=== PATIENT | male | born 1945 | race Caucasian/White ===

== ENCOUNTER → 2016-05-10 | Outpatient (CLI) | payer OTHER, MEDICARE ==
[~2016-05-10] MED LIST: CHOL1000 PO; CLR10 PO; CYAN100020 PO; FLUT0.15; GLC/500 PO; IBUP600T44 PO; MULT-506 PO; PANT40TA PO; PARO1TAB27 PO; PRVHFAIN INH; SPRIN/30 INH; SYMIN160 INH
[2016-05-10 11:34] LABS: ESTIMATED AVERAGE GLUCOSE 134 mg/dl; HA1C FLAG Normal (Normal)
[2016-05-10 11:44] LABS: % FREE PSA 10.1 %; FREE PSA 0.53 ng/ml; PROSTATE SPECIFIC ANTIGEN 5.23 ng/ml (0.000-4.000)
== END | disposition home or self-care (01) ==
LOC: C.LAB1850 10:16
PROVIDERS: ATTEND Urology
DX: R73.09 Other abnormal glucose (principal); N40.0 Benign prostatic hyperplasia without lower urinary tract symptoms

== ENCOUNTER → 2016-08-03 | Outpatient (CLI) | payer OTHER, MEDICARE ==
[~2016-08-03] MED LIST changes: +CIPR-255 PO; +CLC100 PO; +DTR5 PO; +OXYC7.5T62 PO
[2016-08-03 10:08] LABS: % FREE PSA 8.7 %; FREE PSA 0.5 ng/ml; PROSTATE SPECIFIC ANTIGEN 5.81 ng/ml (0.000-4.000)
--- NOTE | 2016-08-09 12:42 | CODING QUERY MEDICAL NECESSITY ---
SUPPORTING DIAGNOSIS NEEDED A supporting diagnosis is required for the test/procedure performed on this patient in order for us to be reimbursed by the patient's insurance. Please provide a supporting diagnosis for the following test/procedure listed below next to the test name along with your signature. *If there is no additional diagnosis for this patient that would support the following test/procedure please document that below next to the test/procedure. Test(s)/Procedure(s) that require a supporting diagnosis: DOS 08/03 * PSA DIAGNOSIS: Provider Signature: Date: Thank you Snow Me[facility] Information Management Once completed, please kindly fax back to [phone] For questions please call [phone]
== END | disposition home or self-care (01) ==
LOC: C.LAB1850 08:28
PROVIDERS: ATTEND Urology
DX: N50.811 Right testicular pain (principal); R97.20 Elevated prostate specific antigen [PSA]

== ENCOUNTER → 2016-10-27 | Outpatient (CLI) | payer OTHER, MEDICARE | END | disposition home or self-care (01) | LOC: C.PATHSPEC 17:41 | PROVIDERS: ATTEND Urology | DX: R97.20 Elevated prostate specific antigen [PSA] (principal) ==

== ENCOUNTER → 2016-11-15 | Outpatient (CLI) | payer OTHER, MEDICARE ==
--- NOTE | 2016-11-15 13:36 | DIAGNOSTIC IMAGING REPORT ---
BONE SCAN WHOLE BODY CLINICAL HISTORY: PROSTATE CA COMPARISON STUDY: There are no relevant images available for correlative purposes FINDINGS: The patient was injected with 25.5 mCi of technetium 99m MDP. Three-hour delayed whole body images were acquired. There is a focus of increased activity visualized posteriorly on the left at the L5-S1 level. This likely is degenerative. Skeletal activity is otherwise normal. IMPRESSION: Focus of increased activity at the L5-S1 level to the left of midline posteriorly. On a statistical basis this is degenerative. Otherwise unremarkable examination. Electronically signed by: Ivan Lindo M.D. 11/15/2016 1:35 PM Dictated Date/Time: 11/15/2016 1:33 PM
== END | disposition home or self-care (01) ==
LOC: C.NUCL 09:03
PROVIDERS: ATTEND Urology
DX: C61 Malignant neoplasm of prostate (principal)

== ENCOUNTER → 2016-12-30 | Outpatient (CLI) | payer OTHER, MEDICARE ==
[~2016-12-30] MED LIST changes: -PANT40TA PO
[2016-12-30 17:38] LABS: BASO % 0.3 %; BASO ABS # 0.02 K/uL (0-0.2); COMPLETE YES; HEMATOCRIT 44.7 % (42-52); IG% 0.2 %; LYMPH % 26.9 %; LYMPH ABS # 1.55 K/uL (1.2-3.4); MEAN CELL VOLUME 94.1 fL (80-100); MEAN CORPUSCULAR HEMOGLOBIN 32.2 pg (25-34); MEAN CORPUSCULAR HGB CONC 34.2 g/dl (32-36); MEAN PLATELET VOLUME 10.3 fL (7.4-10.4); MONO % 7.3 %; NEUT % 64.3 %; PLATELET COUNT 241 K/uL (130-400); RED BLOOD COUNT 4.75 M/uL (4.7-6.1); WHITE BLOOD COUNT 5.77 K/uL (4.8-10.8)
[2016-12-30 17:45] LABS: INR 0.9 (0.9-1.1); PARTIAL THROMBOPLASTIN RATIO 1.1; PROTHROMBIN TIME (PATIENT) 10.1 SECONDS (9.0-12.0)
[2016-12-30 17:55] LABS: ALT/SGPT 33 U/L (12-78); AST/SGOT 35 U/L (15-37); BLOOD UREA NITROGEN 10 mg/dl (7-18); BUN/CREATININE RATIO 11.2 (10-20); CALCIUM 9.5 mg/dl (8.5-10.1); CARBON DIOXIDE 28 mmol/L (21-32); CHLORIDE 106 mmol/L (98-107); CHOLESTEROL 217 mg/dl (0-200); CREATININE 0.89 mg/dl (0.60-1.40); GLUCOSE 96 mg/dl (70-99); POTASSIUM 4.3 mmol/L (3.5-5.1); SODIUM 141 mmol/L (136-145); TRIGLYCERIDES 137 mg/dl (0-150); VERY LOW DENSITY LIPOPROT CALC 27 mg/dl
[2016-12-30 18:01] LABS: ALKALINE PHOSPHATASE 87 U/L (45-117); CHOLESTEROL/HDL RATIO 4.6; HDL CHOLESTEROL 47 mg/dl; LDL CHOLESTEROL CALCULATED 143 mg/dl
[2016-12-31 06:28] LABS: ESTIMATED AVERAGE GLUCOSE 128 mg/dl; HA1C FLAG Normal (Normal)
== END | disposition home or self-care (01) ==
LOC: C.LABBFT 12:26
PROVIDERS: ATTEND Physician Assistant Medical
DX: Z01.818 Encounter for other preprocedural examination (principal); E11.9 Type 2 diabetes mellitus without complications; E78.5 Hyperlipidemia, unspecified

== ENCOUNTER 2017-01-20 06:24 | Inpatient (IN) | payer OTHER, MEDICARE ==
[2017-01-05 13:03] VITALS: BMI 24.0
--- NOTE | 2017-01-05 13:57 | PAT Medication Instructions ---
Service Date Jan 05, 2017. Current Home Medication List Albuterol (Ventolin Hfa), 2 PUFFS INH QID PRN for Shortness of Breath Budesonide/Formoterol Fumarate (Symbicort 160/4.5 Inhaler ), 2 PUFFS INH BID Cholecalciferol (Vitamin D3), 1 TAB PO QAM Cyanocobalamin (Vitamin B12), 1 TAB PO QAM Fluticasone Propionate (Nasal) (Flonase Allergy Relief), 1 DOSE NA DIRECTED PRN for dryness Ibuprofen (Motrin), 600 MG PO TID PRN for Pain Loratadine (Claritin), 10 MG PO QAM Metformin Hcl (Glucophage), 500 MG PO BID Multivitamin (Multivitamin), 1 TAB PO QPM Paroxetine (Paxil), 20 MG PO QAM Tiotropium Portal (Spiriva Handihaler), 1 CAP INH DAILY Medication Instructions For Your Scheduled Surgery - Hold the following per surgeon's instructions: Ibuprofen (Motrin), 600 MG PO TID PRN for Pain - Hold the following medications 48 hours prior to surgery: Metformin Hcl (Glucophage), 500 MG PO BID - Hold the following medications the morning of surgery: Cholecalciferol (Vitamin D3), 1 TAB PO QAM Cyanocobalamin (Vitamin B12), 1 TAB PO QAM Loratadine (Claritin), 10 MG PO QAM - Take the following medications the morning of surgery with a sip of water: Paroxetine (Paxil), 20 MG PO QAM Tiotropium Portal (Spiriva Handihaler), 1 CAP INH DAILY Fluticasone Propionate (Nasal) (Flonase Allergy Relief), 1 DOSE NA DIRECTED PRN for dryness (if needed) Albuterol (Ventolin Hfa), 2 PUFFS INH QID PRN for Shortness of Breath (if needed , AND BRING WITH YOU THE MORNING OF THE SURGERY) Budesonide/Formoterol Fumarate (Symbicort 160/4.5 Inhaler ), 2 PUFFS INH BID - Take the following medications as scheduled the night before surgery: Multivitamin (Multivitamin), 1 TAB PO QPM Budesonide/Formoterol Fumarate (Symbicort 160/4.5 Inhaler ), 2 PUFFS INH BID Albuterol (Ventolin Hfa), 2 PUFFS INH QID PRN for Shortness of Breath (if needed ) If you have any questions please call us at [phone] or [phone] or [phone]
--- NOTE | 2017-01-05 14:40 | DIAGNOSTIC IMAGING REPORT ---
CHEST PREADMISSION(PA/LAT) CLINICAL HISTORY: PAT preoperative evaluation COMPARISON STUDY: 08/28/2015 FINDINGS: Lungs are clear. Vague micronodular peripheral aspect left midlung unchanged in the prior exam. No acute infiltrate. Diaphragms smooth. IMPRESSION: Chronic change. No acute process. The above report was generated using voice recognition software. It may contain grammatical, syntax or spelling errors. Electronically signed by: Manjeet Gray M.D. 01/05/2017 2:39 PM Dictated Date/Time: 01/05/2017 2:38 PM
[2017-01-06 15:08] LABS: URINE APPEARANCE CLEAR (CLEAR); URINE BILIRUBIN NEG (NEG); URINE COLOR YELLOW; URINE NITRITE NEG (NEG); URINE PH 6.5 (4.5-7.5); URINE SPECIFIC GRAVITY 1.012 (1.000-1.030); UROBILINOGEN NEG (NEG)
[2017-01-06 15:13] LABS: MANUAL MICROSCOPIC REQUIRED? NO; REVIEW REQ? NO
[~2017-01-20] VITALS: Ht 175.3 cm; Wt 73.5 kg
[2017-01-20] VITALS (8 sets, daily range): BP systolic 118–154; BP diastolic 66–93; PULSE 74–91; TEMP 36.5–37; O2SAT 91–97; Ht 175.3 cm; Wt 73.5 kg
[~2017-01-20 06:24] MED LIST changes: +CEFAZOLIN 2000 MG/60 ML D5W IV SCH; -CIPR-255 PO; -CLC100 PO; -DTR5 PO; +HEPARIN SOD 5000 UNIT/0.5 ML CARP SQ SCH; +LACTATED RINGER'S 1000ML 1,000 ML IV SCH; -OXYC7.5T62 PO
--- NOTE | 2017-01-20 07:51 | History & Physical Bridge Note ---
H&P Re-Evaluation Bridge Note: I have examined the patient, reviewed the History & Physical and in the interval since the performance of the History & Physical I have noted the following changes of clinical significance: No changes noted
[2017-01-20] MEDS ORDERED: HYDROmorphone INJ 2 MG/ML SYR/VIAL ONE (07:57)
[2017-01-20] MEDS ORDERED: FENTANYL CITRATE INJ 50 MCG/1 ML 2 ML VIAL ONE (07:57)
[2017-01-20] MEDS ORDERED: MIDAZOLAM HCL 1 MG/ML 2ML VIAL ONE (07:57)
[2017-01-20] MEDS ORDERED: KETAMINE HCL INJ 50 MG/ML 10 ML VIAL ONE (07:58)
[2017-01-20] MEDS ORDERED: METHYLENE BLUE 0.5% 10 ML VIAL ONE (08:13)
[2017-01-20] MEDS ORDERED: BUPIVACAINE 0.5 % 5 MG/1 ML MPF 30ML VIAL ONE (08:13)
[2017-01-20] MEDS ORDERED: FENTANYL CITRATE INJ 50 MCG/1 ML 2 ML VIAL IV PRN (08:15)
[2017-01-20] MEDS ORDERED: ATROPINE SULFATE 0.1 MG/ML 5ML SYR IV PRN (08:15)
[2017-01-20] MEDS ORDERED: ONDANSETRON INJ 2 MG/ML 2 ML VIAL IV PRN ×2 (08:15→12:00)
[2017-01-20] MEDS ORDERED: MoRPHine SULFATE 10 MG/ML CARP/VIAL IV PRN (08:15)
[2017-01-20] MEDS ORDERED: EpHEDrine SULFATE INJ 50 MG/ML AMP IV PRN (08:15)
[2017-01-20] MEDS ORDERED: DEXAMETHASONE SOD INJ 4 MG/ML VIAL ONE (09:12)
[2017-01-20] MEDS ORDERED: PROPOFOL IV EMULSION 10 MG/ML 20 ML VIAL IV ONE (09:12)
[2017-01-20] MEDS ORDERED: CISATRACURIUM BESYLATE IV SOLN 2 MG/ML 10 ML VIAL ONE (09:12)
[2017-01-20] MEDS ORDERED: ONDANSETRON INJ 2 MG/ML 2 ML VIAL ONE (09:12)
[2017-01-20] MEDS ORDERED: EpHEDrine SULFATE 50MG/5ML SYR ONE (09:12)
[2017-01-20] MEDS ORDERED: LIDOCAINE HCL 2% 2 ML VIAL (20MG/ML) ONE (09:12)
[2017-01-20] MEDS ORDERED: GLYCOPYRROLATE INJ 0.2 MG/ML VIAL ONE (10:21)
[2017-01-20] MEDS ORDERED: NEOSTIGMINE METHYLSULFATE 5 MG/5 ML SYR ONE (10:21)
[2017-01-20] MEDS ORDERED: KETOROLAC TROMETHAMINE 30 MG/ML VIAL ONE (11:28)
[2017-01-20] MEDS ORDERED: OXYBUTYNIN CHLORIDE 5 MG TAB PO PRN (12:00)
[2017-01-20] MEDS ORDERED: FLUTICASONE PROPIONATE NA SPR 16 GM BTL NAE PRN (12:00)
[2017-01-20] MEDS ORDERED: HYDROmorphone INJ 1 MG/ML SYR IV PRN (12:00)
[2017-01-20] MEDS ORDERED: OXYCODONE/ACETAMINOPHEN 7.5-325 TAB PO PRN (12:00)
[2017-01-20] MEDS ORDERED: KETOROLAC TROMETHAMINE 15 MG/ML VIAL IV PRN (12:00)
[2017-01-20] MEDS ORDERED: ALBUTEROL HFA 8 GM INHALER INH PRN (12:00)
[2017-01-20] MEDS ORDERED: PHARMACY GLYCEMIC MGMT CONSULT PRN (12:04)
--- NOTE | 2017-01-20 12:07 | [facility] Post Operative Brief Note ---
Immediate Operative Summary Operative Date Jan 20, 2017. Pre-Operative Diagnosis cT1c [place] 3+4 Prostate cancer, pre-treatment PSA of 5.8 Post-Operative Diagnosis Same Procedure(s) Performed Robot-Assisted Laparoscopic Radical Retropubic Prostatectomy, Bilateral pelvic lymph node dissection, Suprapubic Tube insertion Bobby Surgeon Dr. Twan Luque Dairy Bar Manager Surgeon(s) TAMANNA Thayer Estimated Blood Loss 100 mL Findings Watertight anastomosis, right nerve sparing dissection, left partial nerve sparing, SPT and fay in place Specimens Permanent specimens A: Periprostatic fat B: Prostate and seminal vesicles C: Right pelvic lymph nodes D: Left pelvic lymph nodes Drains 16 fr Rutner SPT, 18 fr silicone fay, #10 BIBI drain Anesthesia GAET + local Complication(s) None Disposition Recovery Room / PACU
[2017-01-20 12:21] LABS: HEMATOCRIT 45.8 % (42-52); MEAN CELL VOLUME 93.3 fL (80-100); MEAN CORPUSCULAR HEMOGLOBIN 31.8 pg (25-34); PLATELET COUNT 245 K/uL (130-400); RED BLOOD COUNT 4.91 M/uL (4.7-6.1)
[2017-01-20 12:24] LABS: MEAN CORPUSCULAR HGB CONC 34.1 g/dl (32-36)
[2017-01-20 12:51] LABS: BUN/CREATININE RATIO 8.2 (10-20); CREATININE 1.3 mg/dl (0.60-1.40); POTASSIUM 4.1 mmol/L (3.5-5.1)
--- NOTE | 2017-01-20 13:16 | Pharmacy Progress Note ---
Glycemic Control Intl Consult Date of Service Jan 20, 2017. Scope Glycemic Pharmacist consulted by TAMANNA Thayer on 01/20/17 for glycemic control and to write orders per [facility] inpatient glycemic control protocol Objective Weight (Kilograms): 73.50 Accuchecks BSG (last 24hrs): Test 01/20/17 07:03 01/20/17 12:11 01/20/17 12:47 Bedside Glucose 111 mg/dl (70-99) 177 mg/dl (70-99) Random Glucose 198 mg/dl (70-99) Laboratory Data (last 24hrs) Test 01/20/17 12:11 Anion Gap 4.0 mmol/L BUN/Creatinine Ratio 8.2 Blood Urea Nitrogen 11 mg/dl Creatinine 1.30 mg/dl Potassium Level 4.1 mmol/L Sodium Level 139 mmol/L White Blood Count 9.30 K/uL Recent Pertinent Medications Outpatient Anti-diabetic Regimen: * Metformin 500mg PO BID * A1c = 6.1 % 12/30/16 Risk Factors for Insulin Resistance: * Steroids: Dexamethasone 8mg IV x1 * IVF: Ancef pre and post op mixed in dextrose * Recent Surgery: S/p prostatectomy * Diet: Clear liquid Assessment & Plan ASSESSMENT: * 71 year old male type 2 diabetic with good control as outpatient on orals. S/ p prostatectomy. * Pt BSG was good upon admission, but has already increased to 198mg/dl due to IV steroids. * Pt is maintained on oral antidiabetic agents as an outpatient * Oral agents are not recommended for inpatient use d/t drug interactions, changing PO intake, and difficulty titrating for acute hyper/hypoglycemia. ADA recommends re-initiating outpatient oral agents 1-2 days prior to discharge if/ when appropriate if they were held on admission. * Will hold oral agents for admission and utilize SQ basal bolus insulin regimen which is the recommended regimen for inpatient glycemic control. * Will initiate weight based insulin dosing for insulin binh patient and titrate based on BSG trends. * Will start with one time Lantus dose based on pt's weight and stress of 3 for steroid induced hyperglycemia. * ADA & AACE recommend a goal blood sugar range 140-180 mg/dl for the majority of critically ill & non-critically ill patients. However, more stringent targets may be selected in individual cases. Will utilize more stringent goal of 110-140mg/dl based on patient age & comorbidities. Additionally, tighter glycemic control is warranted to facilitate wound/infection healing. PLAN FOR INPATIENT GLYCEMIC CONTROL: * Holding outpatient oral diabetes medications * Basal insulin with LANTUS 36 units SQ x 1 dose now * May give an additional reduced dose tomorrow morning based on BSG * Correctional Insulin with NOVOLOG per scale ACHS or Q6hrs while NPO and overnight at 0200 * Goal Range: Low 110 mg/dL - High 140 mg/dL * Correction Factor: 20 mg/dL/unit * Nutritional / Prandial insulin per carb ratio of 1 unit per 7 grams CHO consumed * Please note that the plan above was derived based on current level of insulin resistance and hospital stress. These recommendations are appropriate for inpatient admission only. Plan of care upon discharge will need to be reassessed to avoid potential outpatient hypo/hyperglycemia. Thank you.
--- NOTE | 2017-01-20 13:35 | Anesthesiology Progress Note ---
Anesthesia Post Op Note Date & Time Jan 20, 2017 at 13:34 Vital Signs Pain Intensity: 3 Vital Signs Past 12 Hours Date Time Temp Pulse Resp B/P (MAP) Pulse Ox O2 Delivery O2 Flow Rate FiO2 01/20/17 13:00 89 14 158/79 95 Nasal Cannula 4 01/20/17 12:45 36.3 87 16 157/74 96 Nasal Cannula 4 01/20/17 12:35 87 16 156/78 96 Nasal Cannula 2 01/20/17 12:25 81 16 163/84 96 Nasal Cannula 2 01/20/17 12:15 81 16 165/74 97 Oxymask 10 01/20/17 12:05 81 16 145/82 97 Oxymask 10 01/20/17 11:55 85 16 129/67 98 Oxymask 10 01/20/17 11:47 36.5 85 16 170/89 98 Oxymask 10 01/20/17 07:14 36.5 74 18 154/93 95 Room Air Notes Mental Status: alert / awake / arousable, participated in evaluation Pt Amnestic to Procedure: Yes Nausea / Vomiting: adequately controlled Pain: adequately controlled Airway Patency, RR, SpO2: stable & adequate BP & HR: stable & adequate Hydration State: stable & adequate Anesthetic Complications: no major complications apparent
[2017-01-20] MEDS ORDERED: GLUCAGON FOR INJ 1 MG VIAL SQ PRN (13:45)
[2017-01-20] MEDS ORDERED: GLUCOSE 10 TABS/TUBE PO PRN (13:45)
[2017-01-20] MEDS ORDERED: GLUCOSE 40% GEL 15 GM TUBE PO PRN (13:45)
[2017-01-20] MEDS ORDERED: DEXTROSE 50% 50 ML SYR IV PRN (13:45)
[2017-01-20] MEDS: LACTATED RINGER'S 1000ML 1,000 ML IV SCH ×2 (13:55→21:01)
[2017-01-20] MEDS ORDERED: LANTUS PER UNIT CHARGE SQ SCH (14:00)
[2017-01-20] MEDS: INSULIN ASPART 100 UNITS/ML 3 ML PEN SC SCH ×3 (14:33→21:00)
[2017-01-20] MEDS: CEFAZOLIN IV 2,000 MG in DEXTROSE 5% 50ML 50 ML IV SCH (16:31)
[2017-01-20] MEDS: ACETAMINOPHEN 500 MG TAB PO SCH ×2 (16:31→22:14)
--- NOTE | 2017-01-20 17:47 | [facility] Operative Report ---
Operative Report Operative Date Jan 20, 2017. Pre-Operative Diagnosis cT1c [place] 3+4 Prostate cancer, pre-treatment PSA of 5.8 Post-Operative Diagnosis Same Procedure(s) Performed Robot-Assisted Laparoscopic Radical Retropubic Prostatectomy, Bilateral pelvic lymph node dissection, Suprapubic Tube insertion Bobby Surgeon Dr. Twan Luque Supervisor Dog License Officer Surgeon(s) TAMANNA Thayer Estimated Blood Loss 100 mL Findings Watertight anastomosis, accessory cavernosal artery spared, R full nerve sparing , left partial nerve sparing dissection carried out, SPT in good location Specimens Permanent specimens A: Periprostatic fat B: Prostate and seminal vesicles C: Right pelvic lymph nodes D: Left pelvic lymph nodes Drains 16 fr Rutner SPT, 18 fr silicone fay, #10 BIBI drain Anesthesia GAET + local Complication(s) None Disposition Recovery Room / PACU Indications Patient is a pleasant 71-year-old male who is been found to have [place] 3+4 prostate cancer, mostly on the left-hand side after prostate biopsy for an elevated PSA. Staging is negative for metastatic disease. Please see H& P for further details. Intravenous Ancef was provided for antibiotic coverage and SCDs used for DVT prophylaxis as well as subcutaneous heparin. He is being brought to the operating room for surgical management of his disease. Description of Procedure Patient was properly identified and brought into the operative suite after identification of appropriate consent of the chart. General anesthesia with endotracheal intubation was initiated and patient was prepped and draped in the standard fashion for this procedure. Full timeout procedure was followed. All port sites were anesthetized with local prior to excision. A 12 mm supraumbilical incision was made and the abdomen was directly entered using a visual obturator and a 0 laparoscope. Abdomen was insufflated to 15 mmHg and surveyed. No evidence of any bowel or vascular injury was noted on initial evaluation after trocar placement. No significant intra-abdominal variations in anatomy were appreciated. Ports were placed for a fourth arm robotic template including 2 left-sided 7 mm robotic ports, 2 right-sided human resources benefits assistant ports, 5 and 12 mm in size and a right-sided 7 mm robotic port. Robot was brought in and docked after placing the patient in Trendelenburg. A 0 lens was used to drop the bladder down to the level of the pubic bone. An accessory cavernosal artery was noted on the right-hand side and able to be dissected free and preserved until the end of the case. Periprostatic fat was removed and sent for pathologic analysis. Endopelvic fascia was sharply entered on both sides the dorsal vein was skeletonized. This was controlled using an 0 Vicryl suture in a [id number] fashion without entrapping the accessory cavernosal artery. Nerve sparing dissection was initiated on the right-hand side. A 30 down lens was used to address the bladder neck which was placed on tension using the fourth arm. This was skeletonized down to the level of the Fay catheter and then divided. Fay catheter was used to provide anterior traction and the posterior bladder neck was divided and dropped in the midline. Vas deferens were encountered within the midline, circumscribed and divided. Denonvilliers fascia was divided in the midline and the rectum was dropped. The lateral aspects of the bladder and the prosthetic pedicles were skeletonized and defined. Weck clips were used to divide the right-sided pedicle using cold scissors and a full nurse. Dissection was carried out to the level of the apex of the prostate. Seminal vesicle on the side was dissected free with vessels being controlled using pinpoint cautery. A similar dissection was carried out on the left-hand side with division and control of the pedicles; however, a rim of tissue was left dividing the neurovascular complex for a partial nerve sparing dissection to avoid a positive margin on the site of his significant disease burden. After this was complete the dorsal venous complex was divided using hot scissors and the urethra was skeletonized with excellent length. This was divided as were the rectourethralis fibers freeing the prostate. This was brought up into the abdomen and placed within an Endo Catch bag for retrieval at the end of the case. Prostatic fossa was visualized and excellent hemostasis was appreciated. Rectum was insufflated under saline irrigation and noted to be free of injury. Attention was then turned the pelvic lymph node dissections on both sides. Boundaries of the dissection were the external iliac vessels, the pelvic sidewall and the obturator nerve. Weck clips were used to control lymphatic vessels as necessary as well as monopolar Bovie cautery. Great care was taken to avoid any injury to the vascular nerve structures. These were noted to be intact at the end of the case. A large node packet was noted to be removed from the right-hand side. Dissection was carried out on the left-hand side with some fracturing of the node packet which was removed in pieces. Larger node packets were placed within an Endo Catch bag for easy removal later. Excellent hemostasis was appreciated. Attention was turned to the bladder or a circumferential running anastomosis using a double-armed V-loc suture was performed. Fay catheter was visualized entering the bladder prior to completion of the closure. Again, excellent urethral length was appreciated. 10 mL of sterile water were placed within the 18 Austrian Fay catheter and the bladder was irrigated with greater than 180 mL of sterile irrigant and noted to be watertight. After the bladder was distended a small suprapubic incision was made and a 16 Austrian Rutner catheter was advanced under direct visualization into the bladder. 5 mL of sterile water were placed within the suprapubic tube balloon and free drainage of fluid was noted. Posterior bladder was checked for injuries and noted to be intact. Fourth arm was removed and a BIBI drain was brought in via the fourth arm port. This was placed within the confines of the pelvis while avoiding placing it directly over the anastomosis. Catheter was replaced to gravity drainage and robotic instruments were removed. Robot was de -docked. Laparoscope was placed via the human resources benefits assistant port and the string to both Endo Catch bags were brought up through the suprapubic umbilical incision. This was then enlarged sufficiently to allow for easy removal of the specimen bags. Excess carbon dioxide gas was removed from the abdomen. Drains were secured using silk suture. Supraumbilical incision was closed using 0 Vicryl suture on a UR 5 needle at the level of the fascia. Skin incisions were closed using 4-0 Monocryl and Dermabond. BIBI was placed to bulb suction. Anesthesia was reversed and patient was transferred to the recovery room in stable condition. Follow-up care: Patient will be admitted to the floor for standard postoperative management. I attest to the content of the Intraoperative Record and any orders documented therein. Any exceptions are noted below.
--- NOTE | 2017-01-20 17:56 | Progress Note ---
Progress Note Date of Service Jan 20, 2017. Progress Note PM rounds. Patient POD#0 s/p RALRP, SPT, BPLND. Family in room. Groggy, resting in bed, no ambulation / OOB yet. Comfortable with oral Tylenol per his report. Grecia clear. NAD S1 S2 Good respiratory excursion. ND, minimal tenderness, inc c/d/i, catheters draining. A/P Patient s/p RALRP, SPT, BPLND OOBTC / ambulate tonight. Increase diet and activity tomorrow. Intraop findings and plan reviewed. Last 24 Hours Test 01/20/17 07:03 01/20/17 12:11 01/20/17 12:47 Bedside Glucose 111 mg/dl 177 mg/dl White Blood Count 9.30 K/uL Red Blood Count 4.91 M/uL Hemoglobin 15.6 g/dL Hematocrit 45.8 % Mean Corpuscular Volume 93.3 fL Mean Corpuscular Hemoglobin 31.8 pg Mean Corpuscular Hemoglobin Concent 34.1 g/dl RDW Standard Deviation 44.9 fL RDW Coefficient of Variation 13.2 % Platelet Count 245 K/uL Mean Platelet Volume 9.0 fL Sodium Level 139 mmol/L Potassium Level 4.1 mmol/L Chloride Level 106 mmol/L Carbon Dioxide Level 29 mmol/L Anion Gap 4.0 mmol/L Blood Urea Nitrogen 11 mg/dl Creatinine 1.30 mg/dl Est Creatinine Clear Calc Drug Dose 53.7 ml/min Estimated GFR () 64.5 Estimated GFR (Non- 55.7 BUN/Creatinine Ratio 8.2 Random Glucose 198 mg/dl Calcium Level 9.0 mg/dl
[2017-01-20] MEDS: HEPARIN SOD 5000 UNIT/0.5 ML CARP SQ SCH (18:57)
[2017-01-20] MEDS ORDERED: BUDESONIDE/FORMOTEROL FUMARATE 160/4.5 60 PUFFS/INHALER INH SCH (21:00)
[2017-01-20] MEDS: DOCUSATE SODIUM 100 MG CAP PO SCH (21:02)
[2017-01-21] MEDS: CEFAZOLIN IV 2,000 MG in DEXTROSE 5% 50ML 50 ML IV SCH ×2 (00:01→08:03)
[2017-01-21] MEDS ORDERED: INSULIN ASPART 100 UNITS/ML 3 ML PEN SC ONE (02:00)
[2017-01-21 03:09] VITALS: BP 117/58; PULSE 73; TEMP 37; O2SAT 95
[2017-01-21] MEDS: ACETAMINOPHEN 500 MG TAB PO SCH ×2 (04:00→09:32)
[2017-01-21] MEDS: HEPARIN SOD 5000 UNIT/0.5 ML CARP SQ SCH (05:53)
[2017-01-21] MEDS: LACTATED RINGER'S 1000ML 1,000 ML IV SCH (05:53)
[2017-01-21 06:00] LABS: COMPLETE YES; HEMATOCRIT 39.5 % (42-52); IG% 0.3 %; LYMPH ABS # 1.13 K/uL (1.2-3.4); MEAN CELL VOLUME 93.6 fL (80-100); MEAN CORPUSCULAR HEMOGLOBIN 32.2 pg (25-34); MEAN CORPUSCULAR HGB CONC 34.4 g/dl (32-36); MEAN PLATELET VOLUME 9.4 fL (7.4-10.4); MONO % 6.9 %; NEUT % 82.8 %; PLATELET COUNT 222 K/uL (130-400); RED BLOOD COUNT 4.22 M/uL (4.7-6.1); WHITE BLOOD COUNT 11.35 K/uL (4.8-10.8)
[2017-01-21 06:44] LABS: BUN/CREATININE RATIO 13.3 (10-20); CALCIUM 8.3 mg/dl (8.5-10.1); CREATININE 0.91 mg/dl (0.60-1.40); POTASSIUM 4.2 mmol/L (3.5-5.1)
[2017-01-21 07:05] VITALS: BP 142/78; PULSE 68; TEMP 36.7; O2SAT 93
--- NOTE | 2017-01-21 08:21 | Progress Note ---
Subjective Date of Service: Jan 21, 2017. Subjective Pt evaluation today including: conversation w/ patient, conversation w/ family , physical exam, chart review, lab review, review of inpatient medication list Pain: Controlled with meds PO Intake: Grecia clears Voiding: fay catheter in place (fay and SPT draining) 71 yo male POD#1 s/p RALRP. is present in room. He reports he has mostly been using Tylenol for pain with some pain on movement - encouraged to use more meds if needed to ambulate. Grecia clear, no emesis, SP discomfort appropriate under the circumstances. SPT and fay draining well, urine clear. No other complaints - OOBTC currently, some lightheadedness with movement yesterday. Problem List Medical Problems: (1) Substernal chest pain Status: Acute Review of Systems Constitutional: No fever, No chills Eyes: No worsening of vision ENT: No hearing loss, No sore throat Respiratory: No wheezing, No dyspnea at rest, No hemoptysis Cardiac: No chest pain Abdomen: + pain (appropriate), No nausea, No vomiting, No diarrhea Male : + see HPI Neurologic: No memory loss, No paralysis Psychiatric: No depression symptoms Heme: No swollen lymph nodes Endo: No excessive thirst Skin: No rash, No itch Objective Vital Signs Date Time Temp Pulse Resp B/P (MAP) Pulse Ox O2 Delivery O2 Flow Rate FiO2 01/21/17 07:05 36.7 68 16 142/78 (99) 93 Nasal Cannula 2.0 01/21/17 03:09 37.0 73 14 117/58 (77) 95 Nasal Cannula 1.5 01/20/17 23:45 Nasal Cannula 4.0 01/20/17 23:10 37.0 80 16 123/66 (85) 91 Nasal Cannula 1.5 01/20/17 19:26 36.9 87 18 131/76 (94) 95 Nasal Cannula 4.0 01/20/17 16:44 36.8 87 18 133/77 (95) 95 Nasal Cannula 4.0 01/20/17 16:30 Nasal Cannula 4.0 01/20/17 15:32 36.9 91 18 149/78 (101) 96 Nasal Cannula 4.0 01/20/17 14:20 83 16 120/73 (89) 94 Nasal Cannula 2.0 01/20/17 13:50 36.5 86 16 122/78 (93) 93 Nasal Cannula 4.0 01/20/17 13:20 Nasal Cannula 4.0 01/20/17 13:20 36.7 86 16 118/71 (87) 97 Nasal Cannula 4.0 01/20/17 13:20 Nasal Cannula 4.0 01/20/17 13:00 89 14 158/79 95 Nasal Cannula 4 01/20/17 12:45 36.3 87 16 157/74 96 Nasal Cannula 4 01/20/17 12:35 87 16 156/78 96 Nasal Cannula 2 01/20/17 12:25 81 16 163/84 96 Nasal Cannula 2 01/20/17 12:15 81 16 165/74 97 Oxymask 10 01/20/17 12:05 81 16 145/82 97 Oxymask 10 01/20/17 11:55 85 16 129/67 98 Oxymask 10 01/20/17 11:47 36.5 85 16 170/89 98 Oxymask 10 Physical Exam General Appearance: WD/WN, no apparent distress Eyes: normal inspection ENT: normal ENT inspection, hearing grossly normal Neck: supple, no adenopathy Respiratory/Chest: no respiratory distress, no accessory muscle use Cardiovascular: no JVD Abdomen: non tender, soft, + pertinent finding (minimally distended, inc c/d/i) Extremities: non-tender Neurologic/Psychiatric: alert, oriented x 3 Skin: normal color Laboratory Results Last 24 Hours Test 01/20/17 12:11 01/20/17 12:47 01/20/17 14:11 01/20/17 16:57 White Blood Count 9.30 K/uL Red Blood Count 4.91 M/uL Hemoglobin 15.6 g/dL Hematocrit 45.8 % Mean Corpuscular Volume 93.3 fL Mean Corpuscular Hemoglobin 31.8 pg Mean Corpuscular Hemoglobin Concent 34.1 g/dl RDW Standard Deviation 44.9 fL RDW Coefficient of Variation 13.2 % Platelet Count 245 K/uL Mean Platelet Volume 9.0 fL Sodium Level 139 mmol/L Potassium Level 4.1 mmol/L Chloride Level 106 mmol/L Carbon Dioxide Level 29 mmol/L Anion Gap 4.0 mmol/L Blood Urea Nitrogen 11 mg/dl Creatinine 1.30 mg/dl Est Creatinine Clear Calc Drug Dose 53.7 ml/min Estimated GFR () 64.5 Estimated GFR (Non- 55.7 BUN/Creatinine Ratio 8.2 Random Glucose 198 mg/dl Calcium Level 9.0 mg/dl Bedside Glucose 177 mg/dl 163 mg/dl 149 mg/dl Test 01/20/17 20:30 01/21/17 02:03 01/21/17 05:30 Bedside Glucose 126 mg/dl 114 mg/dl White Blood Count 11.35 K/uL Red Blood Count 4.22 M/uL Hemoglobin 13.6 g/dL Hematocrit 39.5 % Mean Corpuscular Volume 93.6 fL Mean Corpuscular Hemoglobin 32.2 pg Mean Corpuscular Hemoglobin Concent 34.4 g/dl Platelet Count 222 K/uL Mean Platelet Volume 9.4 fL Neutrophils (%) (Auto) 82.8 % Lymphocytes (%) (Auto) 10.0 % Monocytes (%) (Auto) 6.9 % Eosinophils (%) (Auto) 0.0 % Basophils (%) (Auto) 0.0 % Neutrophils # (Auto) 9.41 K/uL Lymphocytes # (Auto) 1.13 K/uL Monocytes # (Auto) 0.78 K/uL Eosinophils # (Auto) 0.00 K/uL Basophils # (Auto) 0.00 K/uL RDW Standard Deviation 45.3 fL RDW Coefficient of Variation 13.2 % Immature Granulocyte % (Auto) 0.3 % Immature Granulocyte # (Auto) 0.03 K/uL Sodium Level 142 mmol/L Potassium Level 4.2 mmol/L Chloride Level 107 mmol/L Carbon Dioxide Level 26 mmol/L Anion Gap 9.0 mmol/L Blood Urea Nitrogen 12 mg/dl Creatinine 0.91 mg/dl Est Creatinine Clear Calc Drug Dose 76.7 ml/min Estimated GFR () 99.3 Estimated GFR (Non- 85.7 BUN/Creatinine Ratio 13.3 Random Glucose 104 mg/dl Calcium Level 8.3 mg/dl Assessment and Plan A/P 71 yo male POD#1 s/p RALRP. Doing well. Minimal BIBI output. Patient wishes to keep SPT - will DC fay today, care reviewed. Advance diet and activity. Anticipate DC home after lunch. Discharge planning: home
[2017-01-21] MEDS ORDERED: BUDESONIDE/FORMOTEROL FUMARATE 160/4.5 60 PUFFS/INHALER INH SCH (09:00)
[2017-01-21] MEDS ORDERED: PAROXETINE 20 MG TAB PO SCH (09:00)
[2017-01-21] MEDS ORDERED: LORATADINE 10 MG TAB PO SCH (09:00)
[2017-01-21] MEDS ORDERED: CYANOCOBALAMIN 500 MCG TAB (VIT B-12) PO SCH (09:00)
[2017-01-21] MEDS ORDERED: CHOLECALCIFEROL 1000 INTER.UNIT TAB PO SCH (09:00)
[2017-01-21] MEDS ORDERED: TIOTROPIUM BROMIDE 5 PUFF/90 MCG INH INH SCH (09:00)
[2017-01-21] MEDS ORDERED: OXYC7.5T62 PO (09:10)
[2017-01-21] MEDS ORDERED: DTR5 PO (09:10)
[2017-01-21] MEDS ORDERED: CLC100 PO (09:10)
[2017-01-21] MEDS ORDERED: CIPR-255 PO (09:10)
--- NOTE | 2017-01-21 09:12 | Discharge Instructions ---
Discharge Instructions Date of Service Jan 21, 2017. Admission Reason for Admission: Prostate Cancer Discharge Discharge Diagnosis / Problem: Prostate Cancer Discharge Goals Goal(s): Improve function, Improve disease control, Prevent Disease Progression Activity Recommendations Activity Limitations: per Instructions/Follow-up section . Instructions / Follow-Up Instructions / Follow-Up 1. Do not lift >15lbs x 6 weeks. 2. No heavy exercise x 6 weeks. You may engage in light activity such as walking and stairs as tolerated. 3. No sexual intercourse until cleared by Dr. Luque. 4. [address] not drive x [address] while taking narcotics. 5. Finish all of the antibiotic you have been prescribed. 6. Immediately call our office at [phone] if your catheter is removed for any reason. 7. Follow-up as scheduled. Please call our office at [phone] if you need to reschedule for any reason. . Current Hospital Diet Hospital Diet(s): Regular Diet, Diabetes Type 2 Diet Discharge Diet Recommended Diet: Regular Diet Procedures Procedures Performed: Robot-Assisted Laparoscopic Radical Retropubic Prostatectomy, Bilateral pelvic lymph node dissection, Suprapubic Tube insertion Bobby Pending Studies Studies pending at discharge: no Laboratory Results Hemoglobin A1c Test 12/30/16 12:31 Range/Units Estimated Average Glucose 128 mg/dl Hemoglobin A1c 6.1 H 4.5-5.6 % Lipid Panel Test 12/30/16 12:31 Range/Units Triglycerides Level 137 0-150 mg/dl Cholesterol Level 217 H 0-200 mg/dl HDL Cholesterol 47 mg/dl Cholesterol/HDL Ratio 4.6 LDL Cholesterol, Calculated 143 mg/dl Medical Emergencies . Who to Call and When: Medical Emergencies: If at any time you feel your situation is an emergency, please call 911 immediately. . Non-Emergent Contact Non-Emergency issues call your: Urologist Call Non-Emergent contact if: temperature is above 101.5 . . "Provider Documentation" section prepared by Brigida Carmona. . VTE Core Measure Inpt VTE Proph given/why not?: Unfractionated heparin SQ, SCD's [place] Drug Monitoring Program Search Results: no issues identified
[2017-01-21] MEDS: DOCUSATE SODIUM 100 MG CAP PO SCH (09:21)
[2017-01-21] MEDS: INSULIN ASPART 100 UNITS/ML 3 ML PEN SC SCH ×2 (09:37→12:00)
--- NOTE | 2017-01-21 10:22 | Anesthesiology Progress Note ---
Anesthesia Post Op Note Date & Time Jan 21, 2017 at 10:21 Vital Signs Vital Signs Past 12 Hours Date Time Temp Pulse Resp B/P (MAP) Pulse Ox O2 Delivery O2 Flow Rate FiO2 01/21/17 07:05 36.7 68 16 142/78 (99) 93 Nasal Cannula 2.0 01/21/17 03:09 37.0 73 14 117/58 (77) 95 Nasal Cannula 1.5 01/20/17 23:45 Nasal Cannula 4.0 01/20/17 23:10 37.0 80 16 123/66 (85) 91 Nasal Cannula 1.5 Notes Mental Status: alert / awake / arousable, participated in evaluation Pt Amnestic to Procedure: Yes Nausea / Vomiting: adequately controlled Pain: adequately controlled Airway Patency, RR, SpO2: stable & adequate BP & HR: stable & adequate Hydration State: stable & adequate Anesthetic Complications: no major complications apparent
[2017-01-21 10:32] VITALS: BP 117/68; PULSE 74; TEMP 36.8; O2SAT 92
[2017-01-21 13:51] VITALS: BP 117/68; PULSE 74; TEMP 36.8; O2SAT 92
--- NOTE | 2017-01-21 14:02 | Pharmacy Progress Note ---
Glycemic: Assessment & Plan Date of Service Jan 21, 2017. Assessment & Plan Blood sugars look great, pt no longer needs carb ratio as IV steroids have worn off from yesterday, and we can also loosen CF. Resume Metformin tomorrow. Test 01/20/17 14:11 01/20/17 16:57 01/20/17 20:30 01/21/17 02:03 Bedside Glucose 163 mg/dl (70-99) 149 mg/dl (70-99) 126 mg/dl (70-99) 114 mg/dl (70-99) Test 01/21/17 05:30 Random Glucose 104 mg/dl (70-99) * Correctional Insulin: Novolog Correction per scale ACHS Goal Range: Low 110 mg/dL - High 140 mg/dL LOOSEN: Correction Factor: 40 mg/dL/unit * DISCONTINUE Prandial insulin * Metformin 500mg PO BID starting tomorrow Pharmacy will continue to monitor patient daily and write orders per [facility] inpatient glycemic control protocol. Thanks. * Please note that the plan above was derived based on current level of insulin resistance and hospital stress. These recommendations are appropriate for inpatient admission only. Plan of care upon discharge will need to be reassessed to avoid potential outpatient hypo/hyperglycemia.
[2017-01-22] MEDS ORDERED: METFORMIN HCL 500 MG TAB PO SCH (08:30)
== END 2017-01-21 14:42 | disposition home or self-care (01) | DRG 708 ==
LOC: C.ACU 06:24 → C.MSW 08:00 → ENRESERV 12:37
PROVIDERS: ADMIT Urology; ATTEND Urology
PROC: 8E0W4CZ Robotic Assisted Procedure of Trunk Region, Percutaneous Endoscopic Approach (ICD-10-PCS; principal; 2017-01-20 08:15)
PROC: 0T9B40Z Drainage of Bladder with Drainage Device, Percutaneous Endoscopic Approach (ICD-10-PCS; principal; 2017-01-20 08:15)
PROC: 07BC4ZX Excision of Pelvis Lymphatic, Percutaneous Endoscopic Approach, Diagnostic (ICD-10-PCS; principal; 2017-01-20 08:15)
PROC: 0VT04ZZ Resection of Prostate, Percutaneous Endoscopic Approach (ICD-10-PCS; principal; 2017-01-20 08:15)
DX: C61 Malignant neoplasm of prostate (principal); J44.9 Chronic obstructive pulmonary disease, unspecified; E11.9 Type 2 diabetes mellitus without complications; I10 Essential (primary) hypertension; E78.00 Pure hypercholesterolemia, unspecified; F32.9 Major depressive disorder, single episode, unspecified; Z86.19 Personal history of other infectious and parasitic diseases; Z87.891 Personal history of nicotine dependence; Z79.51 Long term (current) use of inhaled steroids; Z79.84 Long term (current) use of oral hypoglycemic drugs; Z79.899 Other long term (current) drug therapy; Z88.1 Allergy status to other antibiotic agents; Z88.8 Allergy status to other drugs, medicaments and biological substances; Z82.5 Family history of asthma and other chronic lower respiratory diseases; Z83.3 Family history of diabetes mellitus; Z82.49 Family history of ischemic heart disease and other diseases of the circulatory system

== ENCOUNTER → 2017-03-22 | Outpatient (CLI) | payer OTHER, MEDICARE ==
[~2017-03-22] MED LIST changes: -CEFAZOLIN 2000 MG/60 ML D5W IV SCH; +CIPR-255 PO; +CLC100 PO; +DTR5 PO; -HEPARIN SOD 5000 UNIT/0.5 ML CARP SQ SCH; -LACTATED RINGER'S 1000ML 1,000 ML IV SCH; +OXYC7.5T62 PO
[2017-03-22 13:49] LABS: BLOOD UREA NITROGEN 10 mg/dl (7-18); BUN/CREATININE RATIO 11.3 (10-20); CREATININE 0.91 mg/dl (0.60-1.40)
[2017-03-22 13:54] LABS: PROSTATE SPECIFIC ANTIGEN < 0.010 ng/ml (0.000-4.000)
== END | disposition home or self-care (01) ==
LOC: C.LAB1850 10:59
PROVIDERS: ATTEND Urology
DX: C61 Malignant neoplasm of prostate (principal)

== ENCOUNTER → 2017-06-21 | Outpatient (CLI) | payer OTHER ==
[2017-06-21 17:07] LABS: BLOOD UREA NITROGEN 11 mg/dl (7-18); CREATININE 0.94 mg/dl (0.60-1.40)
== END | disposition home or self-care (01) ==
LOC: C.LABBC 14:40
PROVIDERS: ATTEND Urology
DX: N32.89 Other specified disorders of bladder (principal)

== ENCOUNTER → 2017-06-29 | Outpatient (CLI) | payer OTHER ==
[2017-06-29 18:00] LABS: ALBUMIN 3.7 gm/dl (3.4-5.0); BLOOD UREA NITROGEN 8 mg/dl (7-18); CALCIUM 9.3 mg/dl (8.5-10.1); CARBON DIOXIDE 28 mmol/L (21-32); CREATININE 0.95 mg/dl (0.60-1.40); GLUCOSE 101 mg/dl (70-99); SODIUM 140 mmol/L (136-145)
[2017-06-29 18:09] LABS: ALKALINE PHOSPHATASE 90 U/L (45-117); ALT/SGPT 24 U/L (12-78); AST/SGOT 22 U/L (15-37); CHOLESTEROL 236 mg/dl (0-200); LDL CHOLESTEROL CALCULATED 149 mg/dl
== END | disposition home or self-care (01) ==
LOC: C.LABBFT 10:55
PROVIDERS: ATTEND Physician Assistant Medical
DX: E78.5 Hyperlipidemia, unspecified (principal)

== ENCOUNTER 2023-06-12 14:19 | Observation (INO) ==
--- NOTE | 2023-06-12 14:52 | Emergency Department Note ---
Impression & Plan Chest pain, Abnormal EKG ED Provider Note NAME: BRENDAN MENDIOLA AGE: 77 SEX: M : 1945 ARRIVES VIA: Walk-In INFORMANT: Patient, ED PROVIDER(S): Gordon Vu DO CHIEF COMPLAINT: Chest pain HPI: The patient is a 77-year-old male who presented to the emergency department for an evaluation of chest pain. The patient describes a pressure on the left side of his chest. He also describes dizziness upon standing and feeling as though his blood pressure is very high. The patient denies having any lower extremity swelling. He has had some shortness of breath and coughing but is not new for him as he has a history of chronic cough and COPD. The patient denies having any fever or hemoptysis. The patient was not seen by his family doctor for the symptoms. ROS: See above HPI for pertinent positives & negatives. A total of 10 systems reviewed and were otherwise negative. PAST MEDICAL HISTORY: See Below PAST SURGICAL HISTORY: See Below FAMILY HISTORY: See Below SOCIAL HISTORY: See Below HOME MEDICATIONS: See Below ALLERGIES: See Below VITALS: See Below PHYSICAL EXAMINATION: GENERAL: Patient is awake alert in no acute distress patient is resting comfortably and showing no signs of anxiety EYES: The conjunctivae are clear. The pupils are round and reactive. EARS, NOSE, MOUTH AND THROAT: The nose is without any evidence of any deformity. Mucous membranes are moist. Tongue is midline. NECK: The neck is nontender and supple. RESPIRATORY: Diminished breath sounds are noted throughout with scattered expiratory wheezing. There is no conversational dyspnea. CARDIOVASCULAR: Regular rate and rhythm noted there no murmurs rubs or gallops normal S1 normal S2. GASTROINTESTINAL: The abdomen is soft. Abdomen is nontender. MUSCULOSKELETAL/EXTREMITIES: There is no evidence of gross deformity full range of motion is noted in the hips and shoulders. SKIN: There is no obvious evidence of any rash. There are no petechiae, pallor or cyanosis noted. NEUROLOGIC: Patient is awake alert and oriented x3 MEDICAL DECISION MAKING: The patient is a 77-year-old male who presented to the emergency department for an evaluation of chest pain. The patient was not tachycardic or hypoxic. The patient did have some abnormal lung sounds. He was treated with aspirin as well as bronchodilator therapy in the emergency department. He was reevaluated multiple times. He was positive for COVID but I am unsure if this is a false positive as the patient recently got over COVID-19. I discussed the limitations of the emergency part workup for chest pain with him. Ultimately the patient was felt to be a better candidate for inpatient management given his ongoing symptoms as well as his abnormal EKG. He did have serial troponin measurements which were negative in the emergency department. I discussed his condition with the on-call [facility] hospitalist. They have agreed to evaluate the patient in the emergency department for further management and disposition Triage Nursing notes reviewed. Prior medical records reviewed Vital Signs: reviewed and remarkable for no significant abnormalities Differential diagnosis: Cardiac ischemia, aortic dissection, pulmonary embolism, pneumothorax, pneumonia, pericarditis, myocarditis, esophageal rupture, GERD, cholecystitis, pancreatitis, musculoskeletal, as well as other pathologies. ER treatment provided: See below Diagnostics interpreted by me: ECG: EKG was obtained in the emergency department. My interpretation is normal sinus rhythm at [address] depressions were noted. There is no ectopy. This was compared to a tracing from June 23, 2021. The ST abnormalities are new compared to previous tracing. Cardiac Monitoring: An order was placed for continuous cardiac monitoring. The monitor shows a rate of 65 bpm with sinus rhythm Laboratory studies: As stated above and show below. Imaging studies: See below. Radiographic imaging was reviewed by myself Consultation(s): I discussed this case with Dr. Galeas who is on-call for the [facility] Past Med/Surg History Medical History Chronic bronchitis with productive mucopurulent cough SIMI (obstructive sleep apnea) Asthma-COPD overlap syndrome Upper airway cough syndrome Chronic cough History of nicotine dependence SIMI (obstructive sleep apnea) Excessive daytime sleepiness Snoring Hypertension Arthritis Anxiety Allergic rhinitis Deviated nasal septum Prostate cancer (10/27/16) Surgical History Hx of cardiac cath 2021 History of back surgery H/O laminectomy Lumbar spine History of surgery H/o back surgery H/O radical retropubic prostatectomy Family History Family/Other COPD (chronic obstructive pulmonary disease) Mother COPD (chronic obstructive pulmonary disease) Diabetes Hypertension Other Myocardial infarction No family history of bleeding disorder Denies family history of Ovarian cancer Prostate cancer Heart disease Breast cancer Colorectal cancer Cancer Stroke Asthma Social History Smoking Status: Never smoker Tobacco Type: Cigarettes Age Started Using Tobacco: 23; Age Quit Using Tobacco: 60; packs per day: 1.5; Cigarettes Per Day: 30; Second Hand Exposure: No; Do You Dip or Chew Tobacco: No; Hx Alcohol Use: No Hx Substance Use: No Preferred Language: Maltese Communication Ability: Effective Visual Impairment: No Limitations Hearing Ability: Normal Beliefs That Will Affect Care: None marital status: Current Living Situation: Spouse current occupational status: retired current occupation: retired from career with maintenance work Feels Safe at Home: Yes Childhood Exposure to Second-Hand Smoke: No Diet: regular Dental Care, Regularly: No Physical Activity Frequency: Does not Exercise Seatbelt Use: always Sunscreen Use: No Assistive Devices: None Allergies Allergies Allergy/AdvReac Type Severity Reaction Status Date / Time erythromycin base AdvReac Intermediate Rectal Verified 06/12/23 16:53 bleeding [id number]-[id number]-[id number] Reductase AdvReac Unknown CAN'T Verified 06/12/23 16:53 Inhibitor REMEMBER [Ackxjli-Eik-Dhg Reductase Inhibitor] Home Meds Home Medications Medication Instructions Recorded Confirmed loratadine 10 mg tablet 10 mg PO DAILY 04/16/18 06/12/23 fluticasone propionate 50 2 sprays intranasal DAILY 11/07/18 06/12/23 mcg/actuation nasal spray,suspension (Allergy Relief (fluticasone)) aspirin 81 mg tablet,delayed 81 mg PO DAILY 06/23/21 06/12/23 release (Adult Aspirin Regimen) cyanocobalamin (vitamin B-12) 1,000 mcg PO DAILY 06/12/23 06/12/23 1,000 mcg tablet (Vitamin B-12) multivitamin 1 tab PO DAILY 06/12/23 06/12/23 Previous Rx's Medication Instructions Recorded blood sugar diagnostic (OneTouch #50 ea 02/18/21 Verio test strips) lancets 33 gauge (OneTouch Delica #100 ea 02/18/21 Lancets) albuterol sulfate 90 mcg/actuation 2 puff inhalation QID PRN 03/11/21 aerosol inhaler Shortness Of Breath Or Wheezing #8.5 grams Portable Oxygen E0431 #1 ea 04/23/21 metformin 500 mg tablet 1,000 mg (2 x 500 mg) PO DAILY 08/17/22 #180 tabs rosuvastatin 10 mg tablet 10 mg PO DAILY #90 tabs 11/04/22 metoprolol succinate 25 mg 25 mg PO DAILY #90 tabs 01/25/23 tablet,extended release 24 hr paroxetine HCl 20 mg tablet 20 mg PO QAM #90 tabs 01/28/23 fluticasone fur. 200 mcg-umeclid 1 inh inhalation DAILY #60 ea 04/29/23 62.5 mcg-vilant 25 mcg inhalat.powder (Trelegy Ellipta) Results & Data (ED) Vital Signs Vital Signs - 24 hr 06/12/23 14:20 06/12/23 14:26 06/12/23 14:37 Temperature 36.5 C Temperature Source Temporal Artery Scan Pulse Rate - Lying Pulse Rate - Sitting Pulse Rate - Standing Pulse Rate 74 Respiratory Rate 20 Respiratory Effort / Characteristics Non-Labored Non-Labored Spontaneous Respiratory Depth Shallow Normal Blood Pressure - Lying Blood Pressure - Sitting Blood Pressure- Standing Blood Pressure 144/89 H Blood Pressure Mean 107 Pulse Oximetry 97 Oxygen Delivery Method Room Air Room Air Room Air Sepsis Recent Fever Within 48 Hours No Sepsis New/Unexplained Change in Mental Status N/A Sepsis Action Taken by Nursing No Action Required 06/12/23 14:49 06/12/23 16:52 06/12/23 16:52 Temperature Temperature Source Pulse Rate - Lying 70 Pulse Rate - Sitting 72 Pulse Rate - Standing 76 Pulse Rate 65 Respiratory Rate Respiratory Effort / Characteristics Non-Labored Respiratory Depth Normal Blood Pressure - Lying 168/82 H Blood Pressure - Sitting 170/87 H Blood Pressure- Standing 167/89 H Blood Pressure Blood Pressure Mean Pulse Oximetry Oxygen Delivery Method Room Air Sepsis Recent Fever Within 48 Hours Sepsis New/Unexplained Change in Mental Status Sepsis Action Taken by Skilled Nursing Medications Current Medication List: was personally reviewed by me Laboratory Data Attestation: I reviewed the patient's lab results. 06/12/23 14:49 06/12/23 14:49 Lab Results 06/12/23 06/12/23 06/12/23 Range/Units 14:49 16:52 17:00 WBC 6.28 (4.8-10.8) K/ul RBC 4.52 L (4.70-6.10) M/uL Hgb 14.1 (14.0-18.0) g/dl Hct 41.6 L (42.0-52.0) % MCV 92.0 (80.0-100.0) fL MCH 31.2 (25.0-34.0) pg MCHC 33.9 (32.0-36.0) g/dL RDW Std Deviation 43.4 (36.4-46.3) fL RDW Coeff of [place] 13.0 (11.5-14.5) % Plt Count 211 (130-400) K/uL MPV 9.0 L (9.4-12.4) fL Immature Gran % (Auto) 0.2 % Neut % (Auto) 60.8 % Lymph % (Auto) 27.5 % [place] % (Auto) 8.3 % Eos % (Auto) 2.9 % Baso % (Auto) 0.3 % Neut # (Auto) 3.82 (1.40-6.50) K/uL Lymph # (Auto) 1.73 (1.20-3.40) K/uL [place] # (Auto) 0.52 (0.11-0.59) K/uL Eos # (Auto) 0.18 (0.00-0.50) K/uL Baso # (Auto) 0.02 (0.00-0.20) K/uL Immature Gran # (Auto) 0.01 (0.01-0.20) K/uL PT 10.5 (9.0-12.0) Seconds INR 1.0 (0.9-1.1) APTT 26 (21-31) Seconds PTT Ratio 0.9 Sodium 141 (136-145) mmol/L Potassium 3.7 (3.5-5.1) mmol/L Chloride 104 (98-107) mmol/L Carbon Dioxide 28 (21-32) mmol/L Anion Gap 9 (3-11) BUN 9 (6-23) mg/dl Creatinine 0.72 (0.6-1.4) mg/dl Est Cr Clr Drug Dosing Not Reportable Est GFR ( Amer) 105.8 ml/min Est GFR (Non-Af Amer) 91.3 ml/min BUN/Creatinine Ratio 12.5 (10-20) Glucose 148 H (70-99(Fasting)) mg/dl Calcium 9.9 (8.6-10.3) mg/dl Total Bilirubin 0.5 (0.2-1.0) mg/dl AST 30 (13-39) U/L ALT 20 (7-52) U/L Alkaline Phosphatase 56 (34-104) U/L Troponin I High Sens 4.7 4.5 (0-20) pg/ml Total Protein 7.9 (6.0-8.3) gm/dl Albumin 4.6 (3.4-5.0) gm/dl Globulin 3.3 (2.5-4.0) gm/dl Albumin/Globulin Ratio 1.4 (0.9-2) Lipase 42 (11-82) U/L SARS-CoV-2 (PCR) POSITIVE (Negative) Influenza Type A (PCR) Negative (Neg) Influenza Type B (PCR) Negative (Neg) RSV (RT-PCR) Negative (Neg) Administered Medications Discontinued Medications Albuterol (Albut/Ipratrop 3mg/0.5mg Neb 3 Ml Vial) 3 ml NEB NOW STA; Protocol Stop: 06/12/23 14:41 Last Admin: 06/12/23 14:56 Dose: 3 ml Documented By: ARS Aspirin (Aspirin Chew 324 Mg) 324 mg PO NOW STA Stop: 06/12/23 14:38 Last Admin: 06/12/23 14:56 Dose: 324 mg Documented By: ARS Methylprednisolone (Methylprednisolone 125 Mg/2 Ml Vial) 125 mg IV NOW STA Stop: 06/12/23 14:41 Last Admin: 06/12/23 14:56 Dose: 125 mg Documented By: ARS Imaging Data My Impression: 1 view chest x-ray was obtained in the emergency department. My interpretation is no free air or definite infiltrate, final report below Radiologist's Impression: Chest X-Ray 06/12/23 14:37 XR chest 1V portable HISTORY: Chest pain, nonspecific COMPARISON: CT lung screening 08/04/2020. FINDINGS: The lungs are hyperexpanded with apical predominant emphysematous changes. No pneumothorax. No pleural fusions. Interstitial thickening at the lung bases is likely due to vascular crowding from the emphysema. Otherwise, no focal lung consolidations to suggest a pneumonia. No evidence for pulmonary edema. The heart is normal in size. No acute fractures. Calcifications within the aortic knob. IMPRESSION: 1. Emphysema. 2. No focal lung consolidations to suggest a pneumonia. ACT 112: Negative or not required by law. Electronically signed by: Kingsley Mcdonough M.D. 06/12/2023 3:01 PM Discharge Plan Visit Data Chief Complaint: Cardiac Assessment Stated Complaint: CHEST PAIN, DIFF BREATHING, HYPERTENSION ED Provider: Gordon Vu Discharge Problem: Chest pain, Abnormal EKG Patient Disposition: Being Evaluated by Hospitalist Forms Stand Alone Forms: My [facility] Prescriptions Prescriptions: No Action fluticasone propionate [Allergy Relief (fluticasone)] 50 mcg/actuation spray,suspension 2 sprays INTNAS DAILY albuterol sulfate 90 mcg/actuation HFA aerosol inhaler 2 puff Inhalation QID PRN (Reason: Shortness Of Breath Or Wheezing) Qty: 8.5 11RF metformin 500 mg tablet 1,000 mg PO DAILY Qty: 180 3RF rosuvastatin 10 mg tablet 10 mg PO DAILY Qty: 90 3RF metoprolol succinate 25 mg tablet extended release 24 hr 25 mg PO DAILY Qty: 90 1RF paroxetine HCl 20 mg tablet 20 mg PO QAM Qty: 90 3RF Trelegy Ellipta 200-62.5-25 mcg blister with device 1 inh inhalation DAILY Qty: 60 2RF (DME) OneTouch Verio test strips Strip See Rx Instructions .Route Qty: 50 5RF Rx Instructions: use to test 1 time daily (DME) lancets [OneTouch Delica Lancets] 33 gauge [facility] [place] See Rx Instructions .Route Qty: 100 5RF Rx Instructions: use to test 1 time daily (DME) Portable Oxygen E0431 [facility] See Rx Instructions .Route Qty: 1 0RF Rx Instructions: O2@2L via nasal cannua with activity/exertion ; portable oxygen tanks for use outside the home - 2L via N/C aspirin [Adult Aspirin Regimen] 81 mg tablet,delayed release (DR/EC) 81 mg PO DAILY loratadine 10 mg Tablet 10 mg PO DAILY multivitamin Tablet 1 tab PO DAILY cyanocobalamin (vitamin B-12) [Vitamin B-12] 1,000 mcg Tablet 1,000 mcg PO DAILY Referrals Referrals: Mauri Samuel DO [Primary Care Provider] - Discharge Problem: Chest pain Qualifiers: Chest pain type: unspecified Qualified Code(s): R07.9 - Chest pain, unspecified
[2023-06-12] MEDS: ALBUT/IPRATROP 3MG/0.5MG NEB 3 ML VIAL NEB STA (14:56)
[2023-06-12] MEDS: methylPREDNISolone 125 MG/2 ML VIAL IV STA (14:56)
[2023-06-12] MEDS: ASPIRIN CHEW 324 MG PO STA (14:56)
--- NOTE | 2023-06-12 15:02 | XRay Report ---
XR chest 1V portable HISTORY: Chest pain, nonspecific COMPARISON: CT lung screening 08/04/2020. FINDINGS: The lungs are hyperexpanded with apical predominant emphysematous changes. No pneumothorax. No pleural fusions. Interstitial thickening at the lung bases is likely due to vascular crowding fro m the emphysema. Otherwise, no focal lung consolidations to suggest a pneumonia. No evidence for pulm onary edema. The heart is normal in size. No acute fractures. Calcifications within the aortic knob. IMPRESSION: 1. Emphysema. 2. No focal lung consolidations to suggest a pneumonia. ACT 112: Negative or not required by law. Electronically signed by: Kingsley Mcdonough M.D. 06/12/2023 3:01 PM
[2023-06-12 15:03] LABS: Basophils # (auto) 0.02 K/uL (0.00-0.20); Basophils % (auto) 0.3 %; Eosinophils # (auto) 0.18 K/uL (0.00-0.50); Eosinophils % (auto) 2.9 %; Hematocrit (blood only) 41.6 % (42.0-52.0); Hemoglobin 14.1 g/dl (14.0-18.0); Immature Granulocytes # (auto) 0.01 K/uL (0.01-0.20); Immature Granulocytes % (auto) 0.2 %; Lymphocytes # (auto) 1.73 K/uL (1.20-3.40); Lymphocytes % (auto) 27.5 %; Mean Corpuscular Hemoglobin 31.2 pg (25.0-34.0); Mean Corpuscular Hgb Conc 33.9 g/dL (32.0-36.0); Monocytes # (auto) 0.52 K/uL (0.11-0.59); Monocytes % (auto) 8.3 %; Neutrophils # (auto) 3.82 K/uL (1.40-6.50); Neutrophils % (auto) 60.8 %; Platelet Count 211 K/uL (130-400); RDW Standard Deviation 43.4 fL (36.4-46.3); Red Blood Count 4.52 M/uL (4.70-6.10); White Blood Count 6.28 K/ul (4.8-10.8)
[2023-06-12 15:22] LABS: Alanine Aminotransferase 20 U/L (7-52); Albumin Globulin Ratio 1.4 (0.9-2); Albumin Level 4.6 gm/dl (3.4-5.0); Alkaline Phosphatase 56 U/L (34-104); Anion Gap 9 (3-11); Aspartate Aminotransferase 30 U/L (13-39); BUN Creatinine Ratio 12.5 (10-20); Bilirubin,Total 0.5 mg/dl (0.2-1.0); Blood Urea Nitrogen 9 mg/dl (6-23); Calcium 9.9 mg/dl (8.6-10.3); Carbon Dioxide 28 mmol/L (21-32); Chloride 104 mmol/L (98-107); Est GFR (African American) 105.8 ml/min; Est GFR (Non-African American) 91.3 ml/min; Globulin 3.3 gm/dl (2.5-4.0); Glucose 148 mg/dl (70-99(Fasting)); Lipase 42 U/L (11-82); Potassium 3.7 mmol/L (3.5-5.1); Sodium 141 mmol/L (136-145); Total Protein 7.9 gm/dl (6.0-8.3)
[2023-06-12 15:28] LABS: Troponin I High Sensitivity 4.7 pg/ml (0-20)
[2023-06-12 15:32] LABS: Partial Thromboplastin Ratio 0.9; Partial Thromboplastin Time 26 Seconds (21-31); Prothrombin Time 10.5 Seconds (9.0-12.0)
[2023-06-12 17:49] LABS: Influenza A virus by PCR Negative (Neg); Influenza B virus by PCR Negative (Neg); RSV by PCR Negative (Neg); SARS CoV2 RNA(COVID-19) Ceph POSITIVE (Negative)
--- NOTE | 2023-06-12 18:49 | History & Physical Report ---
Date of Service June 12, 2023 Assessment & Plan (1) Chest pressure: Plan: Associated with shortness of breath Difficulty to get a good history Troponin x2 negative therefore do not suspect MA as intermittent for days and no worse currently Given risk factors and no definitive alternative etiology will get dobutamine stress echo in AM CRP/ESR to assess for pericarditis given worse symptoms on lying down If dobutamine stress negative consider trial of famotidine given some association with going to the bathroom and burping (2) Asthma-COPD overlap syndrome: Plan: With exacerbation, significant wheezing on exam although this may just be his baseline Duonebs QID Formoterol BID and Budesonide BID Solu-Medrol 125mg IV given in the ER, continue 40mg IV daily (3) COVID-19: Plan: Presumed new infection given previously positive in December although very non specific symptoms unclear if related to COVID he is clearly high risk and will therefore treat with Paxlovid. He is not hypoxic therefore does not qualify for Dexamethasone but getting Solu- Medrol for COPD regardless Paxlovid ordered to his pharmacy and his will pick this up to bring it in as he did well with this previouly Isolation precautions (4) Dizziness: Plan: No orthostasis in the ER. ?related to COVID. ?anxiety related Continue to monitor (5) CAD (coronary artery disease): Plan: Non obstructive in 2021 cardiac cath Continue ASA, metoprolol and rosuvastatin Dobumaine stress echo as above HbA1C and lipid panel with AM labs for risk stratification (6) Hypertension: Plan: Continue metoprolol (7) Diabetes mellitus type 2 in nonobese: Plan: Hemoglobin A1C 7.0 in August 2022, repeat HbA1C with AM labs Continue metformin Insulin for correction factor only (8) Chronic bronchitis with productive mucopurulent cough: Plan VTE Prophylaxis - deferred pending further workup Diet - heart healthy, T2DM Disposition - observation to med/tele Admission and Anticipated Discharge Date Admission Date: Jun 12, 2023 History of Present Illness Chief Complaint: Lightheadedness, chest pressure, shortness of breath Primary Care Provider: Mauri Samuel DO Jose Miguel Aaron is a 77 year old male who presents to the ER with chest pressure, lightheadedness. Very difficult to get a straight story from the patient. Lightheadedness on standing or moving around started around 5 days ago as the only symptoms. He denies this is the room spinning or an unbalanced feeling unless he turns his head quickly. He feels more like he is going to pass out but hasn't. Associated leg weakness. Three days ago he started having a chest pressure along his lower chest (not pain), worse on lying down or standing up for too long, he reports he does not exert himself much to know whether this makes it worse. No worse on deep inspiration. Pressing on his lower sternum hurts but this is a different pain. Intermittent during this time but unclear how long it lasts each time. Resolves wth rest. Associated shortness of breath but no nausea. He reports it feels like gas pains as it is relieved sometimes when he urinates. Associated with a feeling of suffocating. He is now finding it difficult to sleep because of his symptoms. He also notes he is not a crier but has felt more emotional watching a show this week. In the ER he was noted to be significantly wheezing which he reported significant improvement with nebulizer. He is not hypoxic. He tested positive for COVID-19 but reports not symptoms of nasal congestion, cough, headache, diarrhea. Shortness of breath is new as above but intermittent. Allergies Allergy/AdvReac Type Severity Reaction Status Date / Time erythromycin base AdvReac Intermediate Rectal Verified 06/12/23 16:53 bleeding [id number] Reductase AdvReac Unknown CAN'T Verified 06/12/23 16:53 Inhibitor REMEMBER [Iwgilhw-Qdj-Giw Reductase Inhibitor] Home Medications Medication Instructions Recorded Confirmed Type loratadine 10 mg tablet 10 mg PO DAILY 04/16/18 06/12/23 History fluticasone propionate 50 2 sprays intranasal DAILY 11/07/18 06/12/23 History mcg/actuation nasal spray,suspension (Allergy Relief (fluticasone)) blood sugar diagnostic (ForadianTouch #50 ea 02/18/21 01/17/23 Rx Verio test strips) lancets 33 gauge (ForadianTouch Delica #100 ea 02/18/21 01/17/23 Rx Lancets) albuterol sulfate 90 mcg/actuation 2 puff inhalation QID PRN 03/11/21 06/12/23 Rx aerosol inhaler Shortness Of Breath Or Wheezing #8.5 grams Portable Oxygen E0431 #1 ea 04/23/21 01/17/23 Rx aspirin 81 mg tablet,delayed 81 mg PO DAILY 06/23/21 06/12/23 History release (Adult Aspirin Regimen) metformin 500 mg tablet 1,000 mg (2 x 500 mg) PO DAILY 08/17/22 06/12/23 Rx #180 tabs rosuvastatin 10 mg tablet 10 mg PO DAILY #90 tabs 11/04/22 06/12/23 Rx metoprolol succinate 25 mg 25 mg PO DAILY #90 tabs 01/25/23 06/12/23 Rx tablet,extended release 24 hr paroxetine HCl 20 mg tablet 20 mg PO QAM #90 tabs 01/28/23 06/12/23 Rx fluticasone fur. 200 mcg-umeclid 1 inh inhalation DAILY #60 ea 04/29/23 06/12/23 Rx 62.5 mcg-vilant 25 mcg inhalat.powder (Trelegy Ellipta) cyanocobalamin (vitamin B-12) 1,000 mcg PO DAILY 06/12/23 06/12/23 History 1,000 mcg tablet (Vitamin B-12) multivitamin 1 tab PO DAILY 06/12/23 06/12/23 History nirmatrelvir 300 mg (150 mg See Rx Instructions PO .COMPLEX 06/12/23 Rx x2)-ritonavir 100 mg tablet,dose #30 ea pack (Paxlovid) Past Med/Surg History Medical History Chronic bronchitis with productive mucopurulent cough SIMI (obstructive sleep apnea) Asthma-COPD overlap syndrome Upper airway cough syndrome Chronic cough History of nicotine dependence SIMI (obstructive sleep apnea) Excessive daytime sleepiness Snoring Hypertension Arthritis Anxiety Allergic rhinitis Deviated nasal septum Prostate cancer (10/27/16) Surgical History Hx of cardiac cath 2021 History of back surgery H/O laminectomy Lumbar spine History of surgery H/o back surgery H/O radical retropubic prostatectomy Family History Family/Other COPD (chronic obstructive pulmonary disease) Mother COPD (chronic obstructive pulmonary disease) Diabetes Hypertension Other Myocardial infarction No family history of bleeding disorder Denies family history of Ovarian cancer Prostate cancer Heart disease Breast cancer Colorectal cancer Cancer Stroke Asthma Social History Smoking Status: Never smoker Tobacco Type: Cigarettes Age Started Using Tobacco: 23; Age Quit Using Tobacco: 60; packs per day: 1.5; Cigarettes Per Day: 30; Second Hand Exposure: No; Do You Dip or Chew Tobacco: No; Hx Alcohol Use: No Hx Substance Use: No Preferred Language: Arabic Communication Ability: Effective Visual Impairment: No Limitations Hearing Ability: Normal Beliefs That Will Affect Care: None marital status: Current Living Situation: Spouse current occupational status: retired current occupation: retired from career with maintenance work Feels Safe at Home: Yes Childhood Exposure to Second-Hand Smoke: No Diet: regular Dental Care, Regularly: No Physical Activity Frequency: Does not Exercise Seatbelt Use: always Sunscreen Use: No Assistive Devices: None Review of Systems Review of Systems: All systems reviewed & are unremarkable except as noted in HPI & below Physical Exam Constitutional: well developed; + not well nourished and no acute distress Eyes: PERRL, conjunctivae normal, anicteric sclerae ENMT: external ear and nose normal, oropharynx normal Respiratory: normal respiratory effort; no respiratory distress Auscultation: + wheezes (expiratory throughout); breath sounds present, no diminished lung sounds, no crackles, no rales and no rhonchi Cardiovascular: RRR, no murmur, no edema Gastrointestinal (Abdomen): normal bowel sounds, soft, nontender, no hepatosplenomegaly Musculoskeletal: no cyanosis or clubbing, extremities motor strength 5/5 Skin: no rashes, warm and dry Neurologic: moves all extremities and awake; no focal motor deficits (no unilateral deficit) and not confused Psychiatric: A+Ox3, euthymic affect Results & Data Results & Data Vital Signs (Past 12 Hours) Vital Signs Temp Pulse Resp BP Pulse Ox O2 Del Method 06/12/23 16:52 Room Air 06/12/23 14:49 65 06/12/23 14:37 Room Air 06/12/23 14:26 36.5 C 74 20 144/89 H 97 Room Air 06/12/23 14:20 Room Air Diagnostic Findings XR chest 1V portable HISTORY: Chest pain, nonspecific COMPARISON: CT lung screening 08/04/2020. FINDINGS: The lungs are hyperexpanded with apical predominant emphysematous changes. No pneumothorax. No pleural fusions. Interstitial thickening at the lung bases is likely due to vascular crowding from the emphysema. Otherwise, no focal lung consolidations to suggest a pneumonia. No evidence for pulmonary edema. The heart is normal in size. No acute fractures. Calcifications within the aortic knob. IMPRESSION: 1. Emphysema. 2. No focal lung consolidations to suggest a pneumonia. Medications Administered ER Medications Given: ASA 324mg PO Duoneb 3ml NEB Solu-Medrol 125mg IV ECG Rate (beats per minute): 69 Rhythm: normal sinus Findings: + nonspecific-ST abn (Lateral) Comparison ECG Date: from (April 16, 2018) Change: the following changes noted (TW flattening in lateral leads) Code Status & VTE Plan Code Status Full VTE Prophylaxis Plan VTE Prophylaxis will be ordered: Yes PG Care Time/CCT Total # of Minutes Spent Total Time Spent with Patient: Total time spent is greater than 50% in coordination of care (as documented) at patient's floor/unit and/or counseling patient: Coding Level of Care Code 33733 INT INP/OBS CARE 3/75MIN Diagnoses Chest pressure R07.89 Asthma-COPD overlap syndrome J44.9 COVID-19 U07.1 Dizziness R42 CAD (coronary artery disease) I25.10 Hypertension I10 Diabetes mellitus type 2 in nonobese E11.9 Chronic bronchitis with productive mucopurulent cough J41.1
[2023-06-12 19:32] LABS: C Reactive Protein < 0.50 mg/dl (0-0.5)
[2023-06-12] MEDS ORDERED: FAMOTIDINE 200 MG/20 ML VIAL IV ONE (21:13)
[2023-06-12] MEDS ORDERED: ACETAMINOPHEN 325 MG TAB PO PRN (21:13)
[2023-06-12] MEDS ORDERED: ALBUT/IPRATROP 3MG/0.5MG NEB 3 ML VIAL NEB PRN (21:27)
[2023-06-12] MEDS: FORMOTEROL 20 MCG/2 ML VIAL NEB SCH (21:39)
[2023-06-12] MEDS: BUDESONIDE 0.5 MG/2 ML VIAL (PULMICORT) NEB SCH (21:39)
[2023-06-12] MEDS: ROSUVASTATIN CALCIUM 10 MG TAB PO SCH (22:13)
[2023-06-12] MEDS: FAMOTIDINE 20 MG in SYRINGE 3 ML IV ONE (22:14)
[2023-06-12] MEDS ORDERED: GLUCOSE 40% GEL 15 GM TUBE PO PRN (22:33)
[2023-06-12] MEDS ORDERED: GLUCAGON FOR INJ 1 MG VIAL SQ PRN (22:33)
[2023-06-12] MEDS ORDERED: CARBOHYDRATES FOR HYPOGLYCEMIA PO PRN (22:33)
[2023-06-12] MEDS ORDERED: GLUCOSE 10 TAB/TUBE PO PRN (22:33)
[2023-06-12] MEDS ORDERED: DEXTROSE 50% 50 ML SYRINGE IV PRN (22:33)
[2023-06-12] MEDS: Patient's HEIGHT &/or WEIGHT Needed SCH (22:34)
[2023-06-12] MEDS: PAXLOVID 300 MG PO SCH (23:25)
[2023-06-13 04:49] LABS: Basophils # (auto) 0.01 K/uL (0.00-0.20); Basophils % (auto) 0.1 %; Hematocrit (blood only) 40.6 % (42.0-52.0); Hemoglobin 14.1 g/dl (14.0-18.0); Immature Granulocytes # (auto) 0.03 K/uL (0.01-0.20); Immature Granulocytes % (auto) 0.3 %; Lymphocytes # (auto) 0.94 K/uL (1.20-3.40); Lymphocytes % (auto) 9.7 %; Mean Corpuscular Hemoglobin 31.6 pg (25.0-34.0); Mean Corpuscular Hgb Conc 34.7 g/dL (32.0-36.0); Mean Platelet Volume 9.2 fL (9.4-12.4); Monocytes # (auto) 0.09 K/uL (0.11-0.59); Monocytes % (auto) 0.9 %; Neutrophils # (auto) 8.63 K/uL (1.40-6.50); Platelet Count 232 K/uL (130-400); RDW Coefficient of Variation 12.8 % (11.5-14.5); RDW Standard Deviation 42.2 fL (36.4-46.3); Red Blood Count 4.46 M/uL (4.70-6.10)
[2023-06-13 04:52] LABS: BUN Creatinine Ratio 15.7 (10-20); Calcium 10.1 mg/dl (8.6-10.3); Chol HDL Ratio 3.3 (0-5); Creatinine Clr Calc Pharmacy 71.7 ml/min; Est GFR (African American) 96.9 ml/min; Est GFR (Non-African American) 83.6 ml/min; Potassium 4.1 mmol/L (3.5-5.1)
[2023-06-13 04:59] LABS: Troponin I High Sensitivity 5.4 pg/ml (0-20)
[2023-06-13 07:48] LABS: Estimated Average Glucose 166 mg/dl; Hemoglobin A1C 7.4 % (4.5-5.6)
[2023-06-13] MEDS: ALBUT/IPRATROP 3MG/0.5MG NEB 3 ML VIAL NEB SCH (08:03)
--- NOTE | 2023-06-13 08:41 | Hospitalist Progress Note ---
Date of Service June 13, 2023 Assessment & Plan (1) Chest pressure: Plan: Associated with shortness of breath, +COVID testing on admission Trop negative x 3 No chest PAIN reported, but more pressure CRP NOT elevated but ESR 42, unlikely pericarditis Discussed w/ cards and review EKG and trop and do not do dobutamine stress on covid patients and to arrange as outpatient Given pepcid IVP last night, schedule 20mg PO BID given improvement however patients blood pressures are VERY HIGH --> During encounter, BP 205/99 w/ automatic cuff but talking/alert, some dizziness but no headache/blurry vision reported --> manual 199/100 --> this occurred DIRECTLY after paxlovid administration, further to be discontinued per supervising provider. -->Initially wanted to go home but discussed not comfortable with such BP and wanting him to stay/further testing/monitoring RN to check orthostatics given dizziness w/ sitting up Check ddimer given + COVID, will plan for CT if positive --> DDimer 780, CT chest for PE ordered for completeness If any worsened dizziness/reports of headache would get CT head given elevated BP but added hydralazine IV prn in meantime. Continues on home BB for now, consider additional agent pending repeat BPs Repeat EKG ordered for comparison Telemetry monitoring,EKG w/ CP (2) Asthma-COPD overlap syndrome: Plan: Suspect COPD exacerbation in setting of COVID infection given reports of significant wheezing on admission s/p solumedrol 125mg IV in ER, continued on 40mg IV daily and significant improvement w/ such on exam and can convert to PO prednisone for tomorrow and titrate as outpatient Continue duonebs, budesonide BID Incentive spirometry ordered consider azithromycin for atypical coverage but no change in sputum production reported but increased wheezing. Mag checked, 1.7 - 1gm IV Supplemental O2 if needed (only used overnight rather than CPAP per patient asking) Monitor for any sputum production/change Has been using wifes nebs at home -- should get his own rx at dc Continue to monitor (3) Hypertension: Plan: SIGNIFICANT ELEVATIONS ABOVE Continue metoprolol for now Hydralazine IV added as needed and will monitor off paxlovid but suspect needing better bp control Should be on RUTH/ARB likely at baseline. Pending orthostatic VS, consider adding low dose lisinopril/monitoring response (4) COVID-19: Plan: Presumed new infection given previously positive in December although very non specific symptoms unclear if related to COVID he is clearly high risk and will therefore paxlovid continued on admission NOT hypoxic, utilized O2 at night as above rather than his home CPAP so no need for dex, and getting solumedrol as outlined above Isolation precautions Pulmonary toilet, add mucinex BID for secretions/mucus PAXLOVID dcd as above by supervising provider Supplemental O2 as needed (5) Dizziness: Plan: No orthostasis in the ER. ?related to COVID. ?anxiety related Asking RN to repeat orthostatics today, ddimer as outlined/CT if needed Continue to monitor (6) CAD (coronary artery disease): Plan: Non obstructive in 2021 cardiac cath Continue ASA, metoprolol and rosuvastatin Dobumaine stress echo as above will need to be arranged as outpatient A1c 7.4, on metformin at baseline. Lipid panel acceptable Can resume statin in AM as paxlovid d/c;d (7) Diabetes mellitus type 2 in nonobese: Plan: Hemoglobin A1C 7.0 in August 2022, repeat HbA1C with AM labs Continue metformin Insulin for correction factor only (8) Chronic bronchitis with productive mucopurulent cough: Plan: chronic mucus reports but thinks maybe some blood the other week but reports he had a red candy prior and no further nebs/pulmonary toilet as above, adding mucinex BID Plan continued inpatient stay, possible dc in AM pending ddimer/further testing and blood pressure measurements Admission and Anticipated Discharge Date Admission Date: June 12, 2023 Supervising Physician Co-Signing Physician Notes The patient was not seen by me. The chart was reviewed. Case discussed with NIK Nelson. Agree with assessment and plan Subjective Eval this morning around lunch. sitting up in bed, family at bedside. No chest pain, just has a little bit of pressure at time. Discussed possible reflux. No shortness of breath, still w/ cough but significantly improved wheezing on exam and was going to discharge on prednisone taper however BP 205/99 on automatic BP w/ patient sitting up in bed. Has a little bit of pressure to his head. He had JUST taken the paxlovid. Repeat manual BP 194/100 and discussed not safe to dc at present time and will continue to monitor/provide medications and additional testing as needed but if improved/stable in AM can consider dc. Lungs w/ significant improvement give reports on admit. Reports calvo/white sputum, sometimes foamy. Has nebulizers at home (but reports they are his wifes she hasn't been using) Has pulse ox at home. Questions/concerns addressed at this time. Physical Exam Physical Exam: 77yo male sitting up in bed, /family at bedside, NAD when sitting flat head atraumatic, normocephalic, mmm, trachea midline, pupils equal resp even/unlabored, faint end expiratory wheezing, faint crackles, no rales, on room air 93% cv; rrr, no significant mrg, no pitting edema/calf tenderness gi: +BS, soft/NT gu no fay MSK/neuro: nonfocal, answering questions appropriately, strength equal, no facial droop/slurred speech psych: alert to person/place/time Results & Data Results & Data Vital Signs (Past 12 Hours) Vital Signs Temp Pulse Pulse Resp BP Pulse Ox Pulse Ox 06/13/23 08:04 78 18 94 06/13/23 07:14 75 06/13/23 06:00 64 17 172/81 H 98 06/13/23 03:39 06/13/23 02:21 36.6 C 75 20 198/91 H 95 06/12/23 23:00 93 06/12/23 23:00 114 H 20 117/77 93 06/12/23 22:15 06/12/23 22:15 36.4 C L 90 16 176/106 H 94 06/12/23 21:39 89 19 93 O2 Del Method O2 Del Method O2 Flow Rate 06/13/23 08:04 Room Air 06/13/23 07:14 06/13/23 06:00 Nasal Cannula 2 06/13/23 03:39 Nasal Cannula 2 06/13/23 02:21 Room Air 2 06/12/23 23:00 Nasal Cannula 06/12/23 23:00 Nasal Cannula 2 06/12/23 22:15 Room Air 06/12/23 22:15 Room Air 06/12/23 21:39 Room Air Laboratory Results 06/13/23 06/13/23 06/12/23 Range/Units 07:48 04:17 21:16 WBC 9.70 (4.8-10.8) K/ul RBC 4.46 L (4.70-6.10) M/uL Hgb 14.1 (14.0-18.0) g/dl Hct 40.6 L (42.0-52.0) % MCV 91.0 (80.0-100.0) fL MCH 31.6 (25.0-34.0) pg MCHC 34.7 (32.0-36.0) g/dL RDW Std Deviation 42.2 (36.4-46.3) fL RDW Coeff of Shelby 12.8 (11.5-14.5) % Plt Count 232 (130-400) K/uL MPV 9.2 L (9.4-12.4) fL Immature Gran % (Auto) 0.3 % Neut % (Auto) 89.0 % Lymph % (Auto) 9.7 % Dale % (Auto) 0.9 % Eos % (Auto) 0.0 % Baso % (Auto) 0.1 % Neut # (Auto) 8.63 H (1.40-6.50) K/uL Lymph # (Auto) 0.94 L (1.20-3.40) K/uL Dale # (Auto) 0.09 L (0.11-0.59) K/uL Eos # (Auto) 0.00 (0.00-0.50) K/uL Baso # (Auto) 0.01 (0.00-0.20) K/uL Immature Gran # (Auto) 0.03 (0.01-0.20) K/uL ESR (0-20) mm/hr PT (9.0-12.0) Seconds INR (0.9-1.1) APTT (21-31) Seconds PTT Ratio Sodium 139 (136-145) mmol/L Potassium 4.1 (3.5-5.1) mmol/L Chloride 103 (98-107) mmol/L Carbon Dioxide 26 (21-32) mmol/L Anion Gap 10 (3-11) BUN 14 (6-23) mg/dl Creatinine 0.89 (0.6-1.4) mg/dl Est Cr Clr Drug Dosing 71.7 Est GFR ( Amer) 96.9 ml/min Est GFR (Non-Af Amer) 83.6 ml/min BUN/Creatinine Ratio 15.7 (10-20) Glucose 265 H (70-99(Fasting)) mg/dl POC Glucose 209 H 232 H (70-99) mg/dl Estimat Average Glucose 166 mg/dl Hemoglobin A1c 7.4 H (4.5-5.6) % Calcium 10.1 (8.6-10.3) mg/dl Total Bilirubin (0.2-1.0) mg/dl AST (13-39) U/L ALT (7-52) U/L Alkaline Phosphatase (34-104) U/L Troponin I High Sens 5.4 (0-20) pg/ml C-Reactive Protein (0-0.5) mg/dl Total Protein (6.0-8.3) gm/dl Albumin (3.4-5.0) gm/dl Globulin (2.5-4.0) gm/dl Albumin/Globulin Ratio (0.9-2) Triglycerides 93 (0-150) mg/dl Cholesterol 163 (0-200) mg/dl LDL Cholesterol, Calc 94 mg/dl VLDL Cholesterol, Calc 19 (0-30) mg/dl HDL Cholesterol 50 mg/dl Cholesterol/HDL Ratio 3.3 (0-5) Lipase (11-82) U/L SARS-CoV-2 (PCR) (Negative) Influenza Type A (PCR) (Neg) Influenza Type B (PCR) (Neg) RSV (RT-PCR) (Neg) 06/12/23 06/12/23 06/12/23 Range/Units 17:00 16:52 14:49 WBC 6.28 (4.8-10.8) K/ul RBC 4.52 L (4.70-6.10) M/uL Hgb 14.1 (14.0-18.0) g/dl Hct 41.6 L (42.0-52.0) % MCV 92.0 (80.0-100.0) fL MCH 31.2 (25.0-34.0) pg MCHC 33.9 (32.0-36.0) g/dL RDW Std Deviation 43.4 (36.4-46.3) fL RDW Coeff of Shelby 13.0 (11.5-14.5) % Plt Count 211 (130-400) K/uL MPV 9.0 L (9.4-12.4) fL Immature Gran % (Auto) 0.2 % Neut % (Auto) 60.8 % Lymph % (Auto) 27.5 % Dale % (Auto) 8.3 % Eos % (Auto) 2.9 % Baso % (Auto) 0.3 % Neut # (Auto) 3.82 (1.40-6.50) K/uL Lymph # (Auto) 1.73 (1.20-3.40) K/uL Dale # (Auto) 0.52 (0.11-0.59) K/uL Eos # (Auto) 0.18 (0.00-0.50) K/uL Baso # (Auto) 0.02 (0.00-0.20) K/uL Immature Gran # (Auto) 0.01 (0.01-0.20) K/uL ESR 45 H (0-20) mm/hr PT 10.5 (9.0-12.0) Seconds INR 1.0 (0.9-1.1) APTT 26 (21-31) Seconds PTT Ratio 0.9 Sodium 141 (136-145) mmol/L Potassium 3.7 (3.5-5.1) mmol/L Chloride 104 (98-107) mmol/L Carbon Dioxide 28 (21-32) mmol/L Anion Gap 9 (3-11) BUN 9 (6-23) mg/dl Creatinine 0.72 (0.6-1.4) mg/dl Est Cr Clr Drug Dosing Not Reportable Est GFR ( Amer) 105.8 ml/min Est GFR (Non-Af Amer) 91.3 ml/min BUN/Creatinine Ratio 12.5 (10-20) Glucose 148 H (70-99(Fasting)) mg/dl POC Glucose (70-99) mg/dl Estimat Average Glucose mg/dl Hemoglobin A1c (4.5-5.6) % Calcium 9.9 (8.6-10.3) mg/dl Total Bilirubin 0.5 (0.2-1.0) mg/dl AST 30 (13-39) U/L ALT 20 (7-52) U/L Alkaline Phosphatase 56 (34-104) U/L Troponin I High Sens 4.5 4.7 (0-20) pg/ml C-Reactive Protein < 0.50 (0-0.5) mg/dl Total Protein 7.9 (6.0-8.3) gm/dl Albumin 4.6 (3.4-5.0) gm/dl Globulin 3.3 (2.5-4.0) gm/dl Albumin/Globulin Ratio 1.4 (0.9-2) Triglycerides (0-150) mg/dl Cholesterol (0-200) mg/dl LDL Cholesterol, Calc mg/dl VLDL Cholesterol, Calc (0-30) mg/dl HDL Cholesterol mg/dl Cholesterol/HDL Ratio (0-5) Lipase 42 (11-82) U/L SARS-CoV-2 (PCR) POSITIVE (Negative) Influenza Type A (PCR) Negative (Neg) Influenza Type B (PCR) Negative (Neg) RSV (RT-PCR) Negative (Neg) Diagnostic Findings Chest X-Ray 06/12/23 14:37 XR chest 1V portable HISTORY: Chest pain, nonspecific COMPARISON: CT lung screening 08/04/2020. FINDINGS: The lungs are hyperexpanded with apical predominant emphysematous changes. No pneumothorax. No pleural fusions. Interstitial thickening at the lung bases is likely due to vascular crowding from the emphysema. Otherwise, no focal lung consolidations to suggest a pneumonia. No evidence for pulmonary edema. The heart is normal in size. No acute fractures. Calcifications within the aortic knob. IMPRESSION: 1. Emphysema. 2. No focal lung consolidations to suggest a pneumonia. ACT 112: Negative or not required by law. Electronically signed by: Kingsley Mcdonough M.D. 06/12/2023 3:01 PM PG Care Time/CCT Total # of Minutes Spent Total Time Spent with Patient: Total time spent is greater than 50% in coordination of care (as documented) at patient's floor/unit and/or counseling patient: Coding Level of Care Code 19166 SUB INP/OBS CARE 3/50MIN Diagnoses Chest pressure R07.89 Asthma-COPD overlap syndrome J44.9 Hypertension I10 COVID-19 U07.1 Dizziness R42 CAD (coronary artery disease) I25.10 Diabetes mellitus type 2 in nonobese E11.9 Chronic bronchitis with productive mucopurulent cough J41.1
[2023-06-13] MEDS: methylPREDNISolone 40 MG in SYRINGE 0 ML IV SCH (08:57)
[2023-06-13] MEDS: LORATADINE 10 MG TAB PO SCH (08:57)
[2023-06-13] MEDS: METOPROLOL SUCC 25MG EXT REL TAB PO SCH (08:57)
[2023-06-13] MEDS: ASPIRIN 81 MG ECTAB PO SCH (08:57)
[2023-06-13] MEDS: PARoxetine HCL 20 MG TAB PO SCH (08:58)
[2023-06-13] MEDS: INSULIN ASPART PER UNIT CHARGE SC SCH (09:29)
[2023-06-13] MEDS: PAXLOVID PO SCH (11:08)
[2023-06-13] MEDS: MAGNESIUM SULFATE / D5W 1 GM/100 ML BAG IV ONE (12:28)
--- NOTE | 2023-06-13 13:28 | Electrocardiogram Report ---
Test Reason : Blood Pressure : / mmHG Vent. Rate : 069 BPM Atrial Rate : 069 BPM P-R Int : 178 ms QRS Dur : 084 ms QT Int : 400 ms P-R-T Axes : 029 026 092 degrees QTc Int : 428 ms Normal sinus rhythm Nonspecific ST and T wave abnormality Abnormal ECG When compared with ECG of 16-APR-2018 18:54, Nonspecific T wave abnormality now evident in Lateral leads Confirmed by Gordon Burrows [id number]) on 06/13/2023 1:27:47 PM Referred By: REFERRED SELF Confirmed By:Gordon Burrows
[2023-06-13 13:46] LABS: D Dimer 780 ug/L FEU (0-500)
[2023-06-13] MEDS: OPTIRAY 320 125ml IV ONE (14:14)
--- NOTE | 2023-06-13 14:48 | CT Scan Report ---
CT angio chest PE protocol CLINICAL HISTORY: PE, +COVID19 TECHNIQUE: Multidetector row helical CT of the chest was performed with angiographic protocol. Brady l and sagittal reformations were obtained. Coronal and sagittal MIPS were obtained from the axial christine a set and were submitted for review. Automated dose lowering techniques and/or adjustment according to patient size were utilized for this exam. CT DOSE: 722.37 mGy.cm Comparison: Comparison is made to CT chest 04/30/2010 FINDINGS: Lungs and pleura: Diffuse centrilobular emphysema is seen most prominent in the upper lobes. Heart and pericardium: Heart size is normal. No pericardial effusion. Vessels: Evaluation for pulmonary embolism is limited due to suboptimal contrast timing. No evidence of central, lobar, or segmental embolus. Mild atherosclerotic disease is seen. Mediastinum and keenan: Unremarkable. Chest wall and lower neck: Unremarkable. Abdomen: Unremarkable. Bones: Degenerative changes in the thoracic spine. IMPRESSION: No acute abnormality and in particular no evidence of pulmonary embolus. ACT 112: Negative or not required by law. Electronically signed by: Paulo Moffett M.D. 06/13/2023 2:47 PM
[2023-06-13] MEDS: hydrALAZINE HCL 20 MG/ML VIAL IV PRN (14:53)
[2023-06-13] MEDS: metFORMIN HCL 500 MG TAB PO SCH (15:53)
[2023-06-13] MEDS ORDERED: hydrALAZINE HCL 20 MG/ML VIAL IV PRN (17:28)
[2023-06-13] MEDS: hydrALAZINE HCL 20 MG/ML VIAL IV STA (18:14)
[2023-06-13] MEDS: FAMOTIDINE 20 MG TAB PO SCH (20:45)
[2023-06-13] MEDS: guaiFENesin 600 MG TABCR PO SCH (20:45)
[2023-06-14 07:34] LABS: Hematocrit (blood only) 42.3 % (42.0-52.0); Hemoglobin 14.9 g/dl (14.0-18.0); Mean Corpuscular Hemoglobin 31.9 pg (25.0-34.0); Mean Corpuscular Hgb Conc 35.2 g/dL (32.0-36.0); Mean Corpuscular Volume 90.6 fL (80.0-100.0); Mean Platelet Volume 9.5 fL (9.4-12.4); Platelet Count 274 K/uL (130-400); RDW Coefficient of Variation 13.4 % (11.5-14.5); RDW Standard Deviation 44.2 fL (36.4-46.3); Red Blood Count 4.67 M/uL (4.70-6.10); White Blood Count 15.66 K/ul (4.8-10.8)
[2023-06-14 07:52] LABS: BUN Creatinine Ratio 27.6 (10-20); Creatinine Clr Calc Pharmacy 65.1 ml/min; Est GFR (African American) 87.1 ml/min; Est GFR (Non-African American) 75.1 ml/min; Potassium 4.5 mmol/L (3.5-5.1)
[2023-06-14] MEDS: CHOLECALCIFEROL 25 MCG (1000 UNITS) TAB PO SCH (08:24)
[2023-06-14 11:08] VITALS: RESP 18
--- NOTE | 2023-06-14 15:38 | Discharge Summary ---
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 Very difficult to get a straight story from the patient. Lightheadedness on standing or moving around started around 5 days ago as the only symptoms. He denies this is the room spinning or an unbalanced feeling unless he turns his head quickly. He feels more like he is going to pass out but hasn't. Associated leg weakness. Three days ago he started having a chest pressure along his lower chest (not pain), worse on lying down or standing up for too long, he reports he does not exert himself much to know whether this makes it worse. No worse on deep inspiration. Pressing on his lower sternum hurts but this is a different pain. Intermittent during this time but unclear how long it lasts each time. Resolves wth rest. Associated shortness of breath but no nausea. He reports it feels like gas pains as it is relieved sometimes when he urinates. Associated with a feeling of suffocating. He is now finding it difficult to sleep because of his symptoms. He also notes he is not a crier but has felt more emotional watching a show this week. In the ER he was noted to be significantly wheezing which he reported significant improvement with nebulizer. He is not hypoxic. He tested positive for COVID-19 but reports not symptoms of nasal congestion, cough, headache, diarrhea. Shortness of breath is new as above but intermittent. Principal Dx & Hospital Course #1 = Principal Diagnosis (1) Chest pressure: Associated with shortness of breath, +COVID testing on admission -Trop negative x 3 -CRP NOT elevated but ESR 42, unlikely pericarditis - Discussed w/ cards and review EKG and trop and do not do dobutamine stress on covid patients and recommend done as outpatient DDimer 780 --> CTA chest without PE has improved with control of breathing/COPD (2) Asthma-COPD overlap syndrome: Suspect COPD exacerbation in setting of COVID infection given reports of significant wheezing on admission - s/p solumedrol 125mg IV in ER, continued on 40mg IV daily --> discharged with dexamethason 6mg qam x 8 days - Received Continue duonebs, budesonide BID --> transition back to home trelegy and prn albuterol at discharge - Continue Incentive spirometry at discharge Mag checked, 1.7 - replaced 1gm IV patient had a two-step respiratory test, prior to discharge without home oxygen needs at discharge, patient states decreased cough from baseline, best he has felt in a while. (3) Hypertension: - Transient elevations 06/13, patient was symptomatic with these. However due to delays with the pharmacy patient never received IV hydralazine or any additional medication for the elevated blood pressure and it corrected on its own - patient was having difficulty with his roommate while in the ER. However this transient elevation did happen after the administration of Paxlovid, and out of an abundance of caution will not continue this - Continue metoprolol for now - consider outpatient addition of RUTH/ARB as an outpatient (4) COVID-19: Presumed new infection given previously positive in December although very non specific symptoms unclear if related to COVID Pulmonary toilet, continue mucinex BID for secretions/mucus PAXLOVID dcd discharged home without need for supplemental oxygen (5) CAD (coronary artery disease): Non obstructive in 2021 cardiac cath Continue ASA, metoprolol and rosuvastatin Dobumaine stress echo as above will need to be arranged as outpatient (6) Diabetes mellitus type 2 in nonobese: Hemoglobin A1C 7.0 in August 2022, repeat HbA1C 7.4 Continue metformin was on correctional and carb coverage insulin while inpatient, suspect transient elevations with steroid administration. However given rising hemoglobin A1c patient may benefit from escalation of management, will defer to primary care provider Plan dispo: Discharged to home Discharge Exam General: NAD, sitting on the edge of the bed, eating lunch, feels great, VS as above Resp: normal respiratory effort, lungs clear to auscultation, on room air, no wheezing CV: RRR, no murmur, Abd: normal bowel sounds, non tender, no hepatosplenomegaly Extremities: Moves all extremities, no edema Neuro: A&O x3, Updated Medication List Medication Instructions Recorded Confirmed Type loratadine 10 mg tablet 10 mg PO DAILY 04/16/18 06/12/23 History fluticasone propionate 50 2 sprays intranasal DAILY 11/07/18 06/12/23 History mcg/actuation nasal spray,suspension (Allergy Relief (fluticasone)) [facility]/18/21 01/17/23 Rx Verio test strips) lancets 33 gauge ([facility] ea 02/18/21 01/17/23 Rx Lancets) albuterol sulfate 90 mcg/actuation 2 puff inhalation QID PRN 03/11/21 06/12/23 Rx aerosol inhaler Shortness Of Breath Or Wheezing #8.5 grams Portable Oxygen E0431 #1 ea 04/23/21 01/17/23 Rx aspirin 81 mg tablet,delayed 81 mg PO DAILY 06/23/21 06/12/23 History release (Adult Aspirin Regimen) metformin 500 mg tablet 1,000 mg (2 x 500 mg) PO DAILY 08/17/22 06/12/23 Rx #180 tabs rosuvastatin 10 mg tablet 10 mg PO DAILY #90 tabs 11/04/22 06/12/23 Rx metoprolol succinate 25 mg 25 mg PO DAILY #90 tabs 01/25/23 06/12/23 Rx tablet,extended release 24 hr paroxetine HCl 20 mg tablet 20 mg PO QAM #90 tabs 01/28/23 06/12/23 Rx fluticasone fur. 200 mcg-umeclid 1 inh inhalation DAILY #60 ea 04/29/23 06/12/23 Rx 62.5 mcg-vilant 25 mcg inhalat.powder (Trelegy Ellipta) cyanocobalamin (vitamin B-12) 1,000 mcg PO DAILY 06/12/23 06/12/23 History 1,000 mcg tablet (Vitamin B-12) multivitamin 1 tab PO DAILY 06/12/23 06/12/23 History cholecalciferol (vitamin D3) 25 25 mcg PO QAM 30 days #30 caps 06/14/23 Rx mcg (1,000 unit) capsule dexamethasone 6 mg tablet 6 mg PO DAILY 8 days #8 tabs 06/14/23 Rx famotidine 20 mg tablet 20 mg PO BID 30 days #60 tabs 06/14/23 Rx guaifenesin 600 mg tablet, 600 mg PO Q12 5 days #10 tabs 06/14/23 Rx extended release 12 hr (Mucinex) Hospital Stay Data Consultations 06/12/23 18:13 ED Decision to Admit Stat Diagnostic Imagining Performed Chest X-Ray 06/12/23 14:37 XR chest 1V portable HISTORY: Chest pain, nonspecific COMPARISON: CT lung screening 08/04/2020. FINDINGS: The lungs are hyperexpanded with apical predominant emphysematous changes. No pneumothorax. No pleural fusions. Interstitial thickening at the lung bases is likely due to vascular crowding from the emphysema. Otherwise, no focal lung consolidations to suggest a pneumonia. No evidence for pulmonary edema. The heart is normal in size. No acute fractures. Calcifications within the aortic knob. IMPRESSION: 1. Emphysema. 2. No focal lung consolidations to suggest a pneumonia. ACT 112: Negative or not required by law. Electronically signed by: Kingsley Mcdonough M.D. 06/12/2023 3:01 PM Chest CTA 06/13/23 13:43 CT angio chest PE protocol CLINICAL HISTORY: PE, +COVID19 TECHNIQUE: Multidetector row helical CT of the chest was performed with angiographic protocol. Coronal and sagittal reformations were obtained. Coronal and sagittal MIPS were obtained from the axial data set and were submitted for review. Automated dose lowering techniques and/or adjustment according to patient size were utilized for this exam. CT DOSE: 722.37 mGy.cm Comparison: Comparison is made to CT chest 04/30/2010 FINDINGS: Lungs and pleura: Diffuse centrilobular emphysema is seen most prominent in the upper lobes. Heart and pericardium: Heart size is normal. No pericardial effusion. Vessels: Evaluation for pulmonary embolism is limited due to suboptimal contrast timing. No evidence of central, lobar, or segmental embolus. Mild atherosclerotic disease is seen. Mediastinum and keenan: Unremarkable. Chest wall and lower neck: Unremarkable. Abdomen: Unremarkable. Bones: Degenerative changes in the thoracic spine. IMPRESSION: No acute abnormality and in particular no evidence of pulmonary embolus. ACT 112: Negative or not required by law. Electronically signed by: Paulo Moffett M.D. 06/13/2023 2:47 PM Pending Results Patient Have Any Pending Studies at Discharge: No Discharge Instructions Given to Patient (Per Discharging Provider) Mr. Galen, You were hospitalized after having chest pressure. You were found to have COVID and a COPD exacerbation. Your breathing and pressure improved with breathing treatments, mucinex and steroids. You will be discharged with oral steroid, dexamethasone 6mg once a day. I would recommend that you take this in the morning, starting 06/15. I also recommend that you continue taking Mucinex (guanifensin) 600 mg twice a day. This can be purchased over the counter. Do NOT take any further Paxlavoid. Your symptoms also seemed to improve when we treated your heartburn. Pepcid 20mg twice a day has been sent to the pharmacy for heartburn treatment. During your stay we did a chest xray that did not show pneumonia and a chest CT that showed no blood clot in your lungs. We would recommend with the chest pressure that you have a stress test done, however this can be done in the outpatient setting and should not be done until you are past your COVID illness. Your Vitamin D level was low when we checked it here and we started you on oral supplementation. I sent a prescription for vitamin D3 25 mcg to the pharmacy, however this is an over the counter medication and your insurance may not pay for it. If they do not, please just purchase this over the counter, a generic brand is okay. You had some elevations in your blood pressure while here. They came down to safer levels on your current medications, but you may need to add an additional blood pressure medication to your regiment in the future. You can discuss this with your cardiology or primary care doctor. Follow-up appointments: Make an appointment with your primary care physician within one week of discharge. A copy of this summary will be sent to them. Every time you see your primary care physician, or any other doctor, bring your medication list, and a list of questions. CONTACT YOUR PRIMARY CARE PROVIDER if you experience any of the following: Shortness of breath or difficulty breathing Fevers or chills Feeling tired with normal activity or experiencing dizziness or fainting Difficulty following your treatment plan, or difficulty taking medications CALL 911 OR GO TO THE EMERGENCY DEPARTMENT if you experience any of the following: Severe abdominal pain or nausea/vomiting Severe chest pain, or chest pain that radiates (moves) to your jaw or arm Sudden, severe shortness of breath or difficulty breathing Thank you for allowing us to participate in your care. Total Time Total Time Spent Total Time Spent (In Minutes): Time spend day of discharge 40 minutes including direct patient care, medication reconciliation, documentation, review of labs and images, and coordination of care. Supervising Physician Co-Signing Physician Notes PA Supervision Note: I personally saw and examined the patient. I verified all weir points and agree with NIK Rouse with the following exceptions and/or additions: S-Pt feeling completely back to himself. No dizziness. Has a mild cough. Tele with NSR O- Vitals reviewed Gen: [AAOx3, NAD] HEENT: [anicteric sclerae, EOMI] CV: [RRR no mgr nl S1S2] Pulm: [CTAB no wcr] Ext: [no edema] Skin: [no rashes, warm/dry] Neuro: [full strength throughout] A/P-77 yo male here with COVID, acute respiratory failure with hypoxia,di zziness. Much improved with steroids BPs improved Stable for dc t home Coding Level of Care Code 36651 INP/OBS DISCH >30 MIN Diagnoses Chest pressure R07.89 Asthma-COPD overlap syndrome J44.9 Hypertension I10 COVID-19 U07.1 CAD (coronary artery disease) I25.10 Diabetes mellitus type 2 in nonobese E11.9
[2023-06-14 15:54] VITALS: BP 160/89; PULSE 70; TEMP 98.2; O2SAT 94
== END 2023-06-14 16:21 | disposition home or self-care (01) ==
LOC: ED 14:19 → EDINP 14:19 → SUATTDRO 19:24 → EDINP 06-13 21:12

== ENCOUNTER 2023-06-26 09:09 | Observation (INO) ==
--- NOTE | 2023-06-26 09:26 | Emergency Department Note ---
Impression & Plan Substernal chest pain, Near syncope, Acute hypotension ED Provider Note Name: BRENDAN MENDIOLA Age: 77 Sex: Male Arrives Via: Ambulance Informant: Patient, family ED Provider: Ludwig Garcia MD Chief Complaint: Chest pain Impression: As per impressions above Medical Decision Makin-year-old gentleman with a history of known CAD but never had any stenting arrives for evaluation of the 4 hours of substernal chest pain. Radiating to neck and left arm. Initial EKG is reassuring. He was given aspirin and nitro by EMS with improvement in his symptoms. Vital signs are reassuring. Laboratory workup obtained and is unremarkable other than he does have an elevated D-dimer. In the setting of elevated D-dimer and recent COVID infection and hospitalization CT PE is indicated. Prior to going to CT though patient spontaneously developed a near syncopal event. Patient became bradycardic hypotensive and minimally responsive with shortness of breath. 1/2 L normal saline bolus initiated he was put in Trendelenburg and after a minute or 2 resolved without further intervention. Patient noting after this that he is burping some. No significant chest pain though. Repeat EKG is reassuring. He was sent to CT which reveals no evidence of PE nor obvious dissection. Patient is looking well he is breathing comfortably in no distress. Given the chest pain along with this episode of hypotension clearly will need further monitoring and thus hospitalist consulted for further management. Patient does not have an elevated white blood cell count is not febrile I do not feel this is consistent with severe sepsis. Triage/Nursing Notes reviewed by Me Differential:Cardiac ischemia, aortic dissection, pulmonary embolism, pneumothorax, pneumonia, pericarditis, myocarditis, esophageal rupture, GERD, cholecystitis, pancreatitis, musculoskeletal, as well as other pathologies. Vital Signs: reviewed and remarkable for no significant abnormalities Interventions: Normal Saline bolus 2 L IV Labs:ED labs Reviewed by me and remarkable for elevated D-dimer Imagin view chest x-ray as per my interpretation reveals bilateral patchiness consistent with recent viral COVID infection. CT PE study reveals no evidence of PE as per my informal interpretation. Radiologist note viral pattern as well. EKG:As per my interpretation. Indication chest pain. Normal sinus rhythm at 68 beats minute QTc of 431. There is no ectopy nor ischemia. Comparing to EKG of Jun 12 2023 no significant change Cardiac/Tele Monitoring: Cardiac Monitoring: An Order was placed for continuous cardiac monitoring. The monitor shows a rate of 60 with a normal sinus rhythm. Consults:[place] Hospitalist Plan: Disposition:Hospitalization. Condition: Good History of Present Illness: 77-year-old gentleman arrives for evaluation of chest pain. Patient states he awoke around 3 to 4 hours ago with substernal chest pressure. Radiates to his left neck and down his left arm. States pain radiates all the way into his wrist. States a history of some cardiac disease but is never required any stenting. States he had a cath a few years ago. He was admitted about 2 weeks ago for COVID infection causing COPD exacerbation. Since then he has been feeling pretty foggy and says he has been somewhat more irritable than typical. Notes he does get a bit short of breath with exertion but has been assuming this is due to his chronic lung disease. Over the last few days denies any specific chest pains or shortness of breath up until this morning. Has been using his CPAP at night without problems. Due to pain called 911 who gave him aspirin and sublingual nitroglycerin. Patient states that his chest pain is resolved. States he only feels mildly short of breath at the moment. Denies any leg swelling or calf pain. Does have a family history of his mother having a PE. Past Medical History:See Below Home Medications:See Below Allergies:erythromycin, statin Vitals:Blood Pressure: 142/95, Pulse 60, RR 20, T 37.0C, O2 92% on RA Physical Exam: GENERAL: Patient is mildly anxious appearing and in minimal distress. RESPIRATORY: Mild dyspnea with some very faint expiratory wheezing but otherwise good aeration throughout. CARDIOVASCULAR: Regular rate and rhythm.No murmur appreciated. GASTROINTESTINAL: Abdomen soft, non-tender, no peritonitis. EXTREMITIES: Normal motion all extremities, no cyanosis, no edema. NEUROLOGIC: Alert and oriented. No focal neurologic deficits appreciated SKIN: No rash, no jaundice, no diaphoresis. PSYCH: Appropriate GCS: 15 ED Course: Times/Reassessments: Patient was feeling well and then spontaneously had a near syncopal event. Hypotensive bradycardic altered and pale. Fluids Trendelenburg and resolved after a minute or 2. Repeat EKG stable. Ludwig Garcia MD Past Med/Surg History Medical History Chronic bronchitis with productive mucopurulent cough SIMI (obstructive sleep apnea) Asthma-COPD overlap syndrome Upper airway cough syndrome Chronic cough History of nicotine dependence SIMI (obstructive sleep apnea) Excessive daytime sleepiness Snoring Hypertension Arthritis Anxiety Allergic rhinitis Deviated nasal septum Prostate cancer (10/27/16) Surgical History Hx of cardiac cath 2021 History of back surgery H/O laminectomy Lumbar spine History of surgery H/o back surgery H/O radical retropubic prostatectomy Family History Family/Other COPD (chronic obstructive pulmonary disease) Mother COPD (chronic obstructive pulmonary disease) Diabetes Hypertension Other Myocardial infarction No family history of bleeding disorder Denies family history of Ovarian cancer Prostate cancer Heart disease Breast cancer Colorectal cancer Cancer Stroke Asthma Social History Smoking Status: Former smoker Tobacco Type: Cigarettes Age Started Using Tobacco: 23; Age Quit Using Tobacco: 60; packs per day: 1.5; Cigarettes Per Day: 30; Second Hand Exposure: No; Do You Dip or Chew Tobacco: No; Hx Alcohol Use: No Hx Substance Use: No Preferred Language: [place] Communication Ability: Effective Visual Impairment: No Limitations Hearing Ability: Normal Veterinary Manager Required: No Beliefs That Will Affect Care: None marital status: Current Living Situation: Spouse current occupational status: retired current occupation: retired from career with maintenance work Feels Safe at Home: Yes Childhood Exposure to Second-Hand Smoke: No Diet: regular Dental Care, Regularly: No Physical Activity Frequency: Does not Exercise Seatbelt Use: always Sunscreen Use: No Assistive Devices: CPAP Allergies Allergies Allergy/AdvReac Type Severity Reaction Status Date / Time nirmatrelvir [From Paxlovid] Allergy Intermediate Made me Unverified 06/26/23 11:59 extremely hot ritonavir [From Paxlovid] Allergy Intermediate Made me Unverified 06/26/23 11:59 extremely hot erythromycin base AdvReac Intermediate Rectal Verified 06/26/23 11:59 bleeding Fpwzxli-PLX-InI Reductase AdvReac Unknown CAN'T Verified 06/26/23 12:07 Inhibitor REMEMBER [Sgjaifd-Nao-Wdw Reductase Inhibitor] Home Meds Home Medications Medication Instructions Recorded Confirmed loratadine 10 mg tablet 10 mg PO DAILY 04/16/18 06/26/23 fluticasone propionate 50 2 sprays intranasal DAILY 11/07/18 06/26/23 mcg/actuation nasal spray,suspension (Allergy Relief (fluticasone)) aspirin 81 mg tablet,delayed 81 mg PO DAILY 06/23/21 06/26/23 release (Adult Aspirin Regimen) cyanocobalamin (vitamin B-12) 1,000 mcg PO DAILY 06/12/23 06/26/23 1,000 mcg tablet (Vitamin B-12) multivitamin 1 tab PO DAILY 06/12/23 06/26/23 Previous Rx's Medication Instructions Recorded blood sugar diagnostic ([employer]Touch #50 ea 02/18/21 Verio test strips) lancets 33 gauge ([employer]Touch Delica #100 ea 02/18/21 Lancets) albuterol sulfate 90 mcg/actuation 2 puff inhalation QID PRN 03/11/21 aerosol inhaler Shortness Of Breath Or Wheezing #8.5 grams Portable Oxygen E0431 #1 ea 04/23/21 metformin 500 mg tablet 1,000 mg (2 x 500 mg) PO DAILY 08/17/22 #180 tabs rosuvastatin 10 mg tablet 10 mg PO DAILY #90 tabs 11/04/22 metoprolol succinate 25 mg 25 mg PO DAILY #90 tabs 01/25/23 tablet,extended release 24 hr paroxetine HCl 20 mg tablet 20 mg PO QAM #90 tabs 01/28/23 fluticasone fur. 200 mcg-umeclid 1 inh inhalation DAILY #60 ea 04/29/23 62.5 mcg-vilant 25 mcg inhalat.powder (Trelegy Ellipta) cholecalciferol (vitamin D3) 25 25 mcg PO QAM 30 days #30 caps 06/14/23 mcg (1,000 unit) capsule famotidine 40 mg tablet 40 mg PO DAILY gerd #90 tabs 06/20/23 Results & Data (ED) Vital Signs Vital Signs - 24 hr 06/26/23 09:14 06/26/23 09:17 06/26/23 09:30 Temperature 36.7 C Temperature Source Oral Pulse Rate 72 70 62 Pulse Rate from SpO2 Sensor 71 61 Pulse Rhythm Regular Pulse Strength Normal Respiratory Rate 21 16 20 Respiratory Effort / Characteristics Non-Labored Respiratory Depth Normal Respiratory Pattern Regular Blood Pressure 142/93 H 142/95 H 83/55 L Blood Pressure Mean 109 110 64 Pulse Oximetry 92 92 93 Oxygen Delivery Method Room Air Room Air Room Air Oxygen Flow Rate Sepsis Recent Fever Within 48 Hours No Sepsis New/Unexplained Change in Mental Status No Sepsis Action Taken by Nursing No Action Required 06/26/23 09:34 06/26/23 09:40 06/26/23 09:42 Temperature Temperature Source Pulse Rate 64 71 67 Pulse Rate from SpO2 Sensor 65 65 Pulse Rhythm Pulse Strength Respiratory Rate 21 14 Respiratory Effort / Characteristics Respiratory Depth Respiratory Pattern Blood Pressure 112/70 133/78 Blood Pressure Mean 84 96 Pulse Oximetry 95 100 Oxygen Delivery Method Non-rebreather Non-rebreather Oxygen Flow Rate 15 15 Sepsis Recent Fever Within 48 Hours Sepsis New/Unexplained Change in Mental Status Sepsis Action Taken by Nursing 06/26/23 10:00 06/26/23 10:10 06/26/23 10:30 Temperature Temperature Source Pulse Rate 61 60 63 Pulse Rate from SpO2 Sensor 60 60 61 Pulse Rhythm Pulse Strength Respiratory Rate 16 16 23 Respiratory Effort / Characteristics Respiratory Depth Respiratory Pattern Blood Pressure 154/80 H 120/77 Blood Pressure Mean 104 91 Pulse Oximetry 98 98 95 Oxygen Delivery Method Nasal Cannula Nasal Cannula Nasal Cannula Oxygen Flow Rate 2 2 2 Sepsis Recent Fever Within 48 Hours Sepsis New/Unexplained Change in Mental Status Sepsis Action Taken by Nursing 06/26/23 11:00 06/26/23 11:28 06/26/23 11:30 Temperature Temperature Source Pulse Rate 58 L 70 66 Pulse Rate from SpO2 Sensor 57 L 70 65 Pulse Rhythm Pulse Strength Respiratory Rate 16 21 13 Respiratory Effort / Characteristics Respiratory Depth Respiratory Pattern Blood Pressure 144/75 H 169/87 H 148/86 H Blood Pressure Mean 98 114 106 Pulse Oximetry 97 91 98 Oxygen Delivery Method Nasal Cannula Nasal Cannula Oxygen Flow Rate 2 2 Sepsis Recent Fever Within 48 Hours Sepsis New/Unexplained Change in Mental Status Sepsis Action Taken by Nursing 06/26/23 12:00 Temperature Temperature Source Pulse Rate 63 Pulse Rate from SpO2 Sensor 62 Pulse Rhythm Pulse Strength Respiratory Rate 20 Respiratory Effort / Characteristics Respiratory Depth Respiratory Pattern Blood Pressure 146/87 H Blood Pressure Mean 106 Pulse Oximetry 98 Oxygen Delivery Method Nasal Cannula Oxygen Flow Rate 2 Sepsis Recent Fever Within 48 Hours Sepsis New/Unexplained Change in Mental Status Sepsis Action Taken by Nursing Laboratory Data 06/26/23 09:18 06/26/23 09:18 Lab Results 06/26/23 06/26/23 06/26/23 Range/Units 09:18 09:58 10:53 WBC 5.20 (4.8-10.8) K/ul RBC 3.90 L (4.70-6.10) M/uL Hgb 12.5 L (14.0-18.0) g/dl Hct 35.8 L (42.0-52.0) % MCV 91.8 (80.0-100.0) fL MCH 32.1 (25.0-34.0) pg MCHC 34.9 (32.0-36.0) g/dL RDW Std Deviation 44.0 (36.4-46.3) fL RDW Coeff of [place] 13.2 (11.5-14.5) % Plt Count 160 (130-400) K/uL MPV 11.3 (9.4-12.4) fL Immature Gran % (Auto) 0.4 % Neut % (Auto) 59.3 % Lymph % (Auto) 24.0 % [place] % (Auto) 13.8 % Eos % (Auto) 2.5 % Baso % (Auto) 0.0 % Neut # (Auto) 3.08 (1.40-6.50) K/uL Lymph # (Auto) 1.25 (1.20-3.40) K/uL [place] # (Auto) 0.72 H (0.11-0.59) K/uL Eos # (Auto) 0.13 (0.00-0.50) K/uL Baso # (Auto) 0.00 (0.00-0.20) K/uL Immature Gran # (Auto) 0.02 (0.01-0.20) K/uL D-Dimer Cancelled 1110 H* VBG pH 7.37 (7.36-7.41) VBG pCO2 46 (38-50) mmHg VBG pO2 21 mmHg VBG HCO3 27 mmol/L VBG O2 Saturation < 60.0 % VBG Base Excess 0.8 mEq/L Sodium 142 (136-145) mmol/L Potassium 3.8 (3.5-5.1) mmol/L Chloride 109 H (98-107) mmol/L Carbon Dioxide 25 (21-32) mmol/L Anion Gap 8 (3-11) BUN 12 (6-23) mg/dl Creatinine 0.86 (0.6-1.4) mg/dl Est Cr Clr Drug Dosing 74.2 ml/min Est GFR ( Amer) 98.3 ml/min Est GFR (Non-Af Amer) 84.8 ml/min BUN/Creatinine Ratio 14.0 (10-20) Glucose 167 H (70-99(Fasting)) mg/dl Lactate 1.4 (0.4-2.0) mmol/L Calcium 8.3 L (8.6-10.3) mg/dl Magnesium 1.5 L (1.7-2.4) mg/dl Total Bilirubin 0.5 (0.2-1.0) mg/dl Direct Bilirubin 0.1 (0-0.2) mg/dl AST 18 (13-39) U/L ALT 19 (7-52) U/L Alkaline Phosphatase 48 (34-104) U/L Troponin I High Sens 7.4 (0-20) pg/ml Total Protein 5.4 L (6.0-8.3) gm/dl Albumin 3.2 L (3.4-5.0) gm/dl Lipase 67 (11-82) U/L Administered Medications Magnesium Sulfate/Dextrose (Magnesium Sulfate / D5w) 1 gm in 100 mls @ 50 mls/hr IV Q2H JOVI Stop: 06/26/23 18:14 Last Admin: 06/26/23 13:38 Dose: 50 mls/hr Documented By: Infusion: 06/26/23 13:38 Dose: Infused Documented By: Admin: 06/26/23 12:13 Dose: 50 mls/hr Documented By: [place] Discontinued Medications Sodium Chloride (Nss) 1,000 mls @ 999 mls/hr IV .Q1H1M ONE Stop: 06/26/23 10:35 Last Infusion: 06/26/23 10:39 Dose: Infused Documented By: Admin: 06/26/23 09:30 Dose: 999 mls/hr Documented By: LUIS Sodium Chloride (Nss) 500 mls @ 999 mls/hr IV .Q31M ONE Stop: 06/26/23 10:05 Last Infusion: 06/26/23 10:39 Dose: Infused Documented By: Admin: 06/26/23 09:30 Dose: 999 mls/hr Documented By: LUIS Pantoprazole Sodium 40 mg/ (Syringe) 10 mls @ 5 mls/min IV NOW ONE Stop: 06/26/23 13:16 Last Admin: 06/26/23 13:34 Dose: 5 mls/min Documented By: NADER Ioversol (Optiray 320 125ml) 112 ml IV ONCE ONE Stop: 06/26/23 11:13 Last Admin: 06/26/23 11:12 Dose: 112 ml Documented By: ADRIANNA Imaging Data Radiologist's Impression: Chest X-Ray 06/26/23 09:23 XR chest 1V portable CLINICAL HISTORY: chest pain TECHNIQUE: Single frontal radiograph of the chest was obtained. Comparison: Comparison is made to chest radiograph 06/12/2023 FINDINGS: No lines and tubes are seen. Calcified aortic knob is seen. Emphysema is seen with the lungs are otherwise clear. No evidence of pleural effusion or pneumothorax. IMPRESSION: No acute chest disease. ACT 112: Negative or not required by law. Electronically signed by: Paulo Moffett M.D. 06/26/2023 9:55 AM Chest CTA 06/26/23 09:41 CT angio chest PE protocol CLINICAL HISTORY: PE - hypotensive, recent covid TECHNIQUE: Multidetector row helical CT of the chest was performed with angiographic protocol. Coronal and sagittal reformations were obtained. Coronal and sagittal MIPS were obtained from the axial data set and were submitted for review. Automated dose lowering techniques and/or adjustment according to patient size were utilized for this exam. CT DOSE: 520.16 mGy.cm Comparison: Comparison is made to CTA chest 06/13/2023 FINDINGS: Lungs and pleura: Diffuse centrilobular emphysema is seen most prominent in the upper lobes. Thickening of the bronchi is noted. No airspace opacities. Heart and pericardium: Heart size is normal. No pericardial effusion. Vessels: No evidence of pulmonary embolism. Mediastinum and keenan: Unremarkable. Chest wall and lower neck: Unremarkable. Abdomen: Unremarkable. Bones: Degenerative changes in the thoracic spine. IMPRESSION: 1. No acute abnormality and in particular no evidence of pulmonary embolus. 2. Emphysema and bronchial wall thickening which may represent infectious/inflammatory airways disease. ACT 112: Negative or not required by law. Electronically signed by: Paulo Moffett M.D. 06/26/2023 11:41 AM Discharge Plan Visit Data Chief Complaint: Chest Pain ED Provider: Ludwig Garcia Discharge Problem: Substernal chest pain, Near syncope, Acute hypotension Forms Stand Alone Forms: [facility] Prescriptions Prescriptions: No Action fluticasone propionate [Allergy Relief (fluticasone)] 50 mcg/actuation spray,suspension 2 sprays INTNAS DAILY albuterol sulfate 90 mcg/actuation HFA aerosol inhaler 2 puff Inhalation QID PRN (Reason: Shortness Of Breath Or Wheezing) Qty: 8.5 11RF metformin 500 mg tablet 1,000 mg PO DAILY Qty: 180 3RF rosuvastatin 10 mg tablet 10 mg PO DAILY Qty: 90 3RF metoprolol succinate 25 mg tablet extended release 24 hr 25 mg PO DAILY Qty: 90 1RF paroxetine HCl 20 mg tablet 20 mg PO QAM Qty: 90 3RF Trelegy Ellipta 200-62.5-25 mcg blister with device 1 inh inhalation DAILY Qty: 60 2RF (DME) [employer] Verio test strips Strip See Rx Instructions .Route Qty: 50 5RF Rx Instructions: use to test 1 time daily (DME) lancets [[employer]ica Lancets] 33 gauge misc See Rx Instructions .Route Qty: 100 5RF Rx Instructions: use to test 1 time daily (DME) Portable Oxygen E0431 Misc See Rx Instructions .Route Qty: 1 0RF Rx Instructions: O2@2L via nasal cannua with activity/exertion ; portable oxygen tanks for use outside the home - 2L via N/C aspirin [Adult Aspirin Regimen] 81 mg tablet,delayed release (DR/EC) 81 mg PO DAILY famotidine 40 mg tablet 40 mg PO DAILY Qty: 90 2RF loratadine 10 mg Tablet 10 mg PO DAILY multivitamin Tablet 1 tab PO DAILY cyanocobalamin (vitamin B-12) [Vitamin B-12] 1,000 mcg Tablet 1,000 mcg PO DAILY cholecalciferol (vitamin D3) 25 mcg (1,000 unit) Capsule 25 mcg PO QAM 30 Days Qty: 30 1RF Referrals Referrals: Mauri Samuel DO [Primary Care Provider] -
[2023-06-26] MEDS: SODIUM CHLORIDE 0.9% 500 ML IV ONE (09:30)
[2023-06-26] MEDS: SODIUM CHLORIDE 0.9% 1,000 ML IV ONE (09:30)
[2023-06-26 09:44] LABS: Eosinophils # (auto) 0.13 K/uL (0.00-0.50); Eosinophils % (auto) 2.5 %; Hematocrit (blood only) 35.8 % (42.0-52.0); Hemoglobin 12.5 g/dl (14.0-18.0); Immature Granulocytes # (auto) 0.02 K/uL (0.01-0.20); Immature Granulocytes % (auto) 0.4 %; Lymphocytes # (auto) 1.25 K/uL (1.20-3.40); Mean Corpuscular Hemoglobin 32.1 pg (25.0-34.0); Mean Corpuscular Hgb Conc 34.9 g/dL (32.0-36.0); Mean Corpuscular Volume 91.8 fL (80.0-100.0); Mean Platelet Volume 11.3 fL (9.4-12.4); Monocytes # (auto) 0.72 K/uL (0.11-0.59); Monocytes % (auto) 13.8 %; Neutrophils # (auto) 3.08 K/uL (1.40-6.50); Neutrophils % (auto) 59.3 %; Platelet Count 160 K/uL (130-400); RDW Coefficient of Variation 13.2 % (11.5-14.5)
--- NOTE | 2023-06-26 09:57 | XRay Report ---
XR chest 1V portable CLINICAL HISTORY: chest pain TECHNIQUE: Single frontal radiograph of the chest was obtained. Comparison: Comparison is made to chest radiograph 06/12/2023 FINDINGS: No lines and tubes are seen. Calcified aortic knob is seen. Emphysema is seen with the lungs are othe rwise clear. No evidence of pleural effusion or pneumothorax. IMPRESSION: No acute chest disease. ACT 112: Negative or not required by law. Electronically signed by: Paulo Moffett M.D. 06/26/2023 9:55 AM
[2023-06-26 10:15] LABS: Base Excess VBG 0.8 mEq/L; HCO3 VBG 27 mmol/L; Oxygen Saturation VBG < 60.0 %; PCO2 VBG 46 mmHg (38-50); PO2 VBG 21 mmHg; pH VBG 7.37 (7.36-7.41)
[2023-06-26 10:21] LABS: Troponin I High Sensitivity 7.4 pg/ml (0-20)
[2023-06-26 10:44] LABS: Albumin Level 3.2 gm/dl (3.4-5.0); Bilirubin Direct 0.1 mg/dl (0-0.2); Bilirubin,Total 0.5 mg/dl (0.2-1.0); Calcium 8.3 mg/dl (8.6-10.3); Creatinine Clr Calc Pharmacy 74.2 ml/min; Est GFR (African American) 98.3 ml/min; Est GFR (Non-African American) 84.8 ml/min; Magnesium 1.5 mg/dl (1.7-2.4); Potassium 3.8 mmol/L (3.5-5.1); Total Protein 5.4 gm/dl (6.0-8.3)
[2023-06-26] MEDS: OPTIRAY 320 125ml IV ONE (11:12)
--- NOTE | 2023-06-26 11:35 | Electrocardiogram Report ---
Test Reason : Blood Pressure : / mmHG Vent. Rate : 068 BPM Atrial Rate : 068 BPM P-R Int : 184 ms QRS Dur : 080 ms QT Int : 426 ms P-R-T Axes : 040 041 086 degrees QTc Int : 452 ms Normal sinus rhythm Normal ECG When compared with ECG of 26-JUN-2023 09:14, No significant change was found Confirmed by Tahir Cheng ([id number]) on 06/26/2023 11:35:28 AM Referred By: Confirmed By:Tahir Cheng
--- NOTE | 2023-06-26 11:35 | Electrocardiogram Report ---
Test Reason : Blood Pressure : / mmHG Vent. Rate : 068 BPM Atrial Rate : 068 BPM P-R Int : 182 ms QRS Dur : 080 ms QT Int : 406 ms P-R-T Axes : 044 -18 088 degrees QTc Int : 431 ms Normal sinus rhythm Normal ECG When compared with ECG of 12-JUN-2023 14:36, Nonspecific T wave abnormality, improved in Lateral leads Confirmed by Tahir Cheng ([id number]) on 06/26/2023 11:34:32 AM Referred By: Confirmed By:Tahir Cheng
--- NOTE | 2023-06-26 11:44 | CT Scan Report ---
CT angio chest PE protocol CLINICAL HISTORY: PE - hypotensive, recent covid TECHNIQUE: Multidetector row helical CT of the chest was performed with angiographic protocol. Brady l and sagittal reformations were obtained. Coronal and sagittal MIPS were obtained from the axial christine a set and were submitted for review. Automated dose lowering techniques and/or adjustment according to patient size were utilized for this exam. CT DOSE: 520.16 mGy.cm Comparison: Comparison is made to CTA chest 06/13/2023 FINDINGS: Lungs and pleura: Diffuse centrilobular emphysema is seen most prominent in the upper lobes. Thickeni ng of the bronchi is noted. No airspace opacities. Heart and pericardium: Heart size is normal. No pericardial effusion. Vessels: No evidence of pulmonary embolism. Mediastinum and keenan: Unremarkable. Chest wall and lower neck: Unremarkable. Abdomen: Unremarkable. Bones: Degenerative changes in the thoracic spine. IMPRESSION: 1. No acute abnormality and in particular no evidence of pulmonary embolus. 2. Emphysema and bronchial wall thickening which may represent infectious/inflammatory airways disea se. ACT 112: Negative or not required by law. Electronically signed by: Paulo Moffett M.D. 06/26/2023 11:41 AM
[2023-06-26 11:55] LABS: D Dimer 1110 ug/L FEU (0-500)
[2023-06-26] MEDS: MAGNESIUM SULFATE / D5W 1 GM/100 ML BAG IV SCH (12:13)
--- NOTE | 2023-06-26 12:53 | History & Physical Report ---
Date of Service June 26, 2023 Assessment & Plan (1) Chest pain: Plan: Patient reports with chest pain with radiation to left shoulder and down left arm that woke him from sleep, associated with elevated blood pressure, and relieved with NTG spray x3 - This is concerning at this time for angina or cardiac chest pain however, ECG no acute changes and initiatl HsCTNI negtive- will trend HsCTNI and ECGs - obtain ECHO eval for RWMA - If HsCTNI remain non elevated and without anginal like chest pain overnight, Dobutamine Stress test in the morning- NPO after midnight - Aim for better control of BP - PRN NTG for non-reproducible chest pain Patient also has component of atypical/ MSK chest pain that is reproducible and located at his xyphoid process - This is likely multifactorial at this time, to include chronic cough exacerbated by recent COVID as well as possible GERD component - Will place on Protonix 40mg IV now and then BID - steroids have been stopped (2) Hypertension: Plan: Patient has what appears to be symptomatic uncontrolled HTN - Noted with home readings per discussion with 180 or greater. - He was not initiated on any other medications at that time - He is currently 140s with HR 60s - Continue Metoprolol Succinate 25mg Daily - Initiate Captopril 6.25 and escalate as needed for goal SBP <140 - that can be transitioned to lisinopril by PCP or at discharge (3) Syncope: Plan: Patient with eppisode of flushing and syncope associated with reported hypotension - this was while in EMD and currently not sure of causative event as was not present - Possible vasovagal from coughing in association with NTG dosing ? is a possibility - Doubt neurological involvement at this time as he is without any nuero deficits or ataxia or speach difficulty, as well as short lived and self resolving - Admit on telemetry follow for arrhythmia - slowly introduce BP medications as above (4) CAD (coronary artery disease): Plan: Patient with cardiac cath in 2021 - nonobstructive at that time Left Main (% Stenosis): Normal LAD (% Stenosis): Proximal (Mild) and Mid D1 (% Stenosis): Normal D2 (% Stenosis): Ostial (40%) Circumflex (% Stenosis): Distal (30 to 40% tandem) OM1 (% Stenosis): Normal OM2 (% Stenosis): Normal L PL1 (% Stenosis): Normal RCA (% Stenosis): Proximal (50%) R PDA (% Stenosis): Normal As above Dobutamine Stress Test (5) Dyslipidemia: Plan: Continue statin - based on further events- consider transitioning to high intensity statin dose. (6) SIMI (obstructive sleep apnea): Plan: Continue with CPAP 8CM H20 at bedtime and as needed (7) Chronic cough: Plan: Acute on Chronic likely with exacerbation of his underlying asthma/copd overlap syndrome - continue with inhaled fluticasone - Trelege or equivalent while in house - no an acute exacerbation at this time (8) Asthma-COPD overlap syndrome: Plan: As above continue with treatment as no evidence of CO2 retention or failing of therapy - consider antitussive as possible addition (9) Diabetes mellitus type 2 in nonobese: Plan: Insulin sliding scale - 110-160, CF 20 Carb ration 1:12 - Adjust as desired for BG <180mg/dl History of Present Illness Chief Complaint: chest pain Primary Care Provider: Mauri Samuel, DO 77 YOM with medical history of: Nonobstructive CAD (cath 2021), HTN, DM II, Asthma/COPD overlap, SIMI (CPAP 8cmH20), Obesity, chronic bronchitis, COVID 19 06/11, Prostate Cancer( 2017 Adenocarcinoma [place] Grade III)PSA levels no treatment) , chronic back pain L4-L5 radiculopathy. Patient presents to the EMD this morning via EMS for complaints of chest pain that woke him up from sleep this morning. Patient reports that he woke up at 0600 took off his CPAP mask and the pain was located in center of his chest, but then radiated up to his left shoulder and down his arm. He woke his up and she got him baby asa x2 and checked his blood pressure. His blood pressure was 200/100s. He rested for a bit and as the pain did not go away, he got up got dressed and went downstairs and called EMS. The pain did not get better or worse during any of this activity. When EMS showed up, he was given NTG x3 sprays, which patient states made the pain go away almost immediately. He was brought to the EMD where he underwent ECG, Routine labs to include HsCTNI. ECG was negative for STEMI and HsCTNI were not elevated. During this time he reportedly had a syncopal event associated with hypotension in the EMD. His reports that they were sitting with their grand-daughter and the patient reports that he remembers things "getting foggy" and not being able to hear himself speak, his granddaughter went and retrieved the nurse, the also reports that he was pale and diaphoretic at that time. Upon everyone being in the room and some IVF the patient returned to baseline and blood pressure responded without any other interventions. Patient will be admitted to medical telemetry, will obtain ECHO to eval for RWMA as well as continue to trend HsCTNI as next set at 1400 which will be about 8 hours post maximum chest pain. He is currently chest pain free from his symptoms standpoint this morning, however does still have REPRODUCIBLE epigastric pain over xiphoid process. Patient also was recently treated for COVID with Paxlovid that was discontinued after 1 dose secondary to chest pain and hypertension at that time, he was also admitted in May for chest pain. Since he had COVID at that time, HsCTNI and ECGS were stable, Dobutamine stress test was entertained at that time, but not performed secondary to COVID. For the patient's elevated blood pressure, the reports that he is more so than not at or greater than 180mmHG- the patient feels that he gets irritable and has some associated difficulty breathing at those times. He originally thought that this was related to his steroid course following his COVID so he stopped these after 4 doses, not only because of how he felt, but also because his blood sugars were elevated. He reports that his blood sugars have returned to normal range, his cold sweats have disappeared and his mood feels better, but remains with elevated blood pressure readings at home. CODE: FULL Allergies Allergy/AdvReac Type Severity Reaction Status Date / Time nirmatrelvir [From Paxlovid] Allergy Intermediate Made me Unverified 06/26/23 11:59 extremely hot ritonavir [From Paxlovid] Allergy Intermediate Made me Unverified 06/26/23 11:59 extremely hot erythromycin base AdvReac Intermediate Rectal Verified 06/26/23 11:59 bleeding Neraggy-TPD-MfD Reductase AdvReac Unknown CAN'T Verified 06/26/23 12:07 Inhibitor REMEMBER [Xzxcrmw-Fgx-Zew Reductase Inhibitor] Home Medications Medication Instructions Recorded Confirmed Type loratadine 10 mg tablet 10 mg PO DAILY 04/16/18 06/26/23 History fluticasone propionate 50 2 sprays intranasal DAILY 11/07/18 06/26/23 History mcg/actuation nasal spray,suspension (Allergy Relief (fluticasone)) [facility]/18[facility]21 01/17/23 Rx Verio test strips) lancets 33 gauge ([facility] ea 02/18/21 01/17/23 Rx Lancets) albuterol sulfate 90 mcg/actuation 2 puff inhalation QID PRN 03/11/21 06/26/23 Rx aerosol inhaler Shortness Of Breath Or Wheezing #8.5 grams Portable Oxygen E0431 #1 ea 04/23/21 01/17/23 Rx aspirin 81 mg tablet,delayed 81 mg PO DAILY 06/23/21 06/26/23 History release (Adult Aspirin Regimen) metformin 500 mg tablet 1,000 mg (2 x 500 mg) PO DAILY 08/17/22 06/26/23 Rx #180 tabs rosuvastatin 10 mg tablet 10 mg PO DAILY #90 tabs 11/04/22 06/26/23 Rx metoprolol succinate 25 mg 25 mg PO DAILY #90 tabs 01/25/23 06/26/23 Rx tablet,extended release 24 hr paroxetine HCl 20 mg tablet 20 mg PO QAM #90 tabs 01/28/23 06/26/23 Rx fluticasone fur. 200 mcg-umeclid 1 inh inhalation DAILY #60 ea 04/29/23 06/26/23 Rx 62.5 mcg-vilant 25 mcg inhalat.powder (Trelegy Ellipta) cyanocobalamin (vitamin B-12) 1,000 mcg PO DAILY 06/12/23 06/26/23 History 1,000 mcg tablet (Vitamin B-12) multivitamin 1 tab PO DAILY 06/12/23 06/26/23 History cholecalciferol (vitamin D3) 25 25 mcg PO QAM 30 days #30 caps 06/14/23 06/26/23 Rx mcg (1,000 unit) capsule famotidine 40 mg tablet 40 mg PO DAILY gerd #90 tabs 06/20/23 06/26/23 Rx Past Med/Surg History Medical History Chronic bronchitis with productive mucopurulent cough SIMI (obstructive sleep apnea) Asthma-COPD overlap syndrome Upper airway cough syndrome Chronic cough History of nicotine dependence SIMI (obstructive sleep apnea) Excessive daytime sleepiness Snoring Hypertension Arthritis Anxiety Allergic rhinitis Deviated nasal septum Prostate cancer (10/27/16) Surgical History Hx of cardiac cath 2021 History of back surgery H/O laminectomy Lumbar spine History of surgery H/o back surgery H/O radical retropubic prostatectomy Family History Family/Other COPD (chronic obstructive pulmonary disease) Mother COPD (chronic obstructive pulmonary disease) Diabetes Hypertension Other Myocardial infarction No family history of bleeding disorder Denies family history of Ovarian cancer Prostate cancer Heart disease Breast cancer Colorectal cancer Cancer Stroke Asthma Social History Smoking Status: Former smoker Tobacco Type: Cigarettes Age Started Using Tobacco: 23; Age Quit Using Tobacco: 60; packs per day: 1.5; Cigarettes Per Day: 30; Second Hand Exposure: No; Do You Dip or Chew Tobacco: No; Hx Alcohol Use: No Hx Substance Use: No Preferred Language: Togolese Communication Ability: Effective Visual Impairment: No Limitations Hearing Ability: Normal Brewery Pumper Required: No Beliefs That Will Affect Care: None marital status: Current Living Situation: Spouse current occupational status: retired current occupation: retired from career with maintenance work Feels Safe at Home: Yes Childhood Exposure to Second-Hand Smoke: No Diet: regular Dental Care, Regularly: No Physical Activity Frequency: Does not Exercise Seatbelt Use: always Sunscreen Use: No Assistive Devices: CPAP Review of Systems Review of Systems: REVIEW OF SYSTEMS: Constitutional: No fever, sweats or chills Eyes: No diplopia, no worsening or blurred vision ENT: normal hearing, no trouble swallowing Respiratory: (+) cough, sputum, dyspnea at rest or on exertion Cardiovascular: (+) chest pain, tightness or palpitations Abdomen: (+) belching and burping, No pain, nausea, vomiting, diarrhea or constipation Musculoskeletal: (+) chronic back pain, No joint pain, calf pain, swelling Neurologic: No weakness, numbness/tingling, or balance problems Psychiatric: No anxiety or depression Skin: No rash or itch Physical Exam Physical Exam: PHYSICAL EXAM: General: awake, alert, no apparent distress Head: Normocephalic, atraumatic ENT: PERRL, EOMI, no pharyngeal exudate, mucous membranes moist Neuro: AAO x 3, speech clear and appropriate, strength intact bilaterally 5/5, sensation intact and equal all extremities and dermatomes, no pronator drift Chest: equal rise and fall of the chest, no accessory muscle use, no heaves or thrills, scattered rhonchi, wheeze with cough, productive thick clear secretions Cardiac: Regular rate and rhythm, telemetry reviewed- NSR, skin warm dry, cap refill <3 seconds, peripheral pulses +2 no JVD, no murmur, trace edema, S1S2 GI: Epigastric reproducible pain, NABS x 4 quadrants, soft, nontender to palpation, no rebound, guarding or tenderness : Spontaneously voiding, no pain, no CVA tenderness, Extremities: Normal inspection, no peripheral edema or erythema, calfs nontender to palpation Psych: Normal mood and affect Skin: no rash or erythema Results & Data Results & Data Vital Signs (Past 12 Hours) Vital Signs Temp Pulse Resp BP Pulse Ox O2 Del Method O2 Flow Rate 06/26/23 12:00 63 20 146/87 H 98 Nasal Cannula 2 06/26/23 11:30 66 13 148/86 H 98 Nasal Cannula 2 06/26/23 11:28 70 21 169/87 H 91 06/26/23 11:00 58 L 16 144/75 H 97 Nasal Cannula 2 06/26/23 10:30 63 23 120/77 95 Nasal Cannula 2 06/26/23 10:10 60 16 98 Nasal Cannula 2 06/26/23 10:00 61 16 154/80 H 98 Nasal Cannula 2 06/26/23 09:42 67 06/26/23 09:40 71 14 133/78 100 Non-rebreather 15 06/26/23 09:34 64 21 112/70 95 Non-rebreather 15 06/26/23 09:30 62 20 83/55 L 93 Room Air 06/26/23 09:17 70 16 142/95 H 92 Room Air 06/26/23 09:14 36.7 C 72 21 142/93 H 92 Room Air Laboratory Results Abnormal lab results 06/26/23 06/26/23 Range/Units 09:18 10:53 RBC 3.90 L (4.70-6.10) M/uL Hgb 12.5 L (14.0-18.0) g/dl Hct 35.8 L (42.0-52.0) % [place] # (Auto) 0.72 H (0.11-0.59) K/uL D-Dimer 1110 H* (0-500) ug/L FEU Chloride 109 H (98-107) mmol/L Glucose 167 H (70-99(Fasting)) mg/dl Calcium 8.3 L (8.6-10.3) mg/dl Magnesium 1.5 L (1.7-2.4) mg/dl Total Protein 5.4 L (6.0-8.3) gm/dl Albumin 3.2 L (3.4-5.0) gm/dl Diagnostic Findings Chest X-Ray 06/26/23 09:23 XR chest 1V portable CLINICAL HISTORY: chest pain TECHNIQUE: Single frontal radiograph of the chest was obtained. Comparison: Comparison is made to chest radiograph 06/12/2023 FINDINGS: No lines and tubes are seen. Calcified aortic knob is seen. Emphysema is seen with the lungs are otherwise clear. No evidence of pleural effusion or pneumothorax. IMPRESSION: No acute chest disease. ACT 112: Negative or not required by law. Electronically signed by: Paulo Moffett M.D. 06/26/2023 9:55 AM Chest CTA 06/26/23 09:41 CT angio chest PE protocol CLINICAL HISTORY: PE - hypotensive, recent covid TECHNIQUE: Multidetector row helical CT of the chest was performed with angiographic protocol. Coronal and sagittal reformations were obtained. Coronal and sagittal MIPS were obtained from the axial data set and were submitted for review. Automated dose lowering techniques and/or adjustment according to patient size were utilized for this exam. CT DOSE: 520.16 mGy.cm Comparison: Comparison is made to CTA chest 06/13/2023 FINDINGS: Lungs and pleura: Diffuse centrilobular emphysema is seen most prominent in the upper lobes. Thickening of the bronchi is noted. No airspace opacities. Heart and pericardium: Heart size is normal. No pericardial effusion. Vessels: No evidence of pulmonary embolism. Mediastinum and keenan: Unremarkable. Chest wall and lower neck: Unremarkable. Abdomen: Unremarkable. Bones: Degenerative changes in the thoracic spine. IMPRESSION: 1. No acute abnormality and in particular no evidence of pulmonary embolus. 2. Emphysema and bronchial wall thickening which may represent infectious/inflammatory airways disease. ACT 112: Negative or not required by law. Electronically signed by: Paulo Moffett M.D. 06/26/2023 11:41 AM Medications Administered Home Medications loratadine 10 mg tablet 10 mg PO DAILY 04/16/18 [History Confirmed 06/26/23] fluticasone propionate 50 mcg/actuation nasal spray,suspension (Allergy Relief (fluticasone)) 2 sprays intranasal DAILY 11/07/18 [History Confirmed 06/26/23] blood sugar diagnostic ([facility] Verio test strips) #50 ea 02/18/21 [Rx Confirmed 01/17/23] lancets 33 gauge ([facility] Delica Lancets) #100 ea 02/18/21 [Rx Confirmed 01/17/23] albuterol sulfate 90 mcg/actuation aerosol inhaler 2 puff inhalation QID PRN Shortness Of Breath Or Wheezing #8.5 grams 03/11/21 [Rx Confirmed 06/26/23] Portable Oxygen E0431 #1 ea 04/23/21 [Rx Confirmed 01/17/23] aspirin 81 mg tablet,delayed release (Adult Aspirin Regimen) 81 mg PO DAILY 06/23/21 [History Confirmed 06/26/23] metformin 500 mg tablet 1,000 mg (2 x 500 mg) PO DAILY #180 tabs 08/17/22 [Rx Confirmed 06/26/23] rosuvastatin 10 mg tablet 10 mg PO DAILY #90 tabs 11/04/22 [Rx Confirmed 06/26/23] metoprolol succinate 25 mg tablet,extended release 24 hr 25 mg PO DAILY #90 tabs 01/25/23 [Rx Confirmed 06/26/23] paroxetine HCl 20 mg tablet 20 mg PO QAM #90 tabs 01/28/23 [Rx Confirmed 06/26/23] fluticasone fur. 200 mcg-umeclid 62.5 mcg-vilant 25 mcg inhalat.powder (Trelegy Ellipta) 1 inh inhalation DAILY #60 ea 04/29/23 [Rx Confirmed 06/26/23] cyanocobalamin (vitamin B-12) 1,000 mcg tablet (Vitamin B-12) 1,000 mcg PO DAILY 06/12/23 [History Confirmed 06/26/23] multivitamin 1 tab PO DAILY 06/12/23 [History Confirmed 06/26/23] cholecalciferol (vitamin D3) 25 mcg (1,000 unit) capsule 25 mcg PO QAM 30 days #30 caps 06/14/23 [Rx Confirmed 06/26/23] famotidine 40 mg tablet 40 mg PO DAILY gerd #90 tabs 06/20/23 [Rx Confirmed 06/26/23] Active Medications Magnesium Sulfate/Dextrose (Magnesium Sulfate / D5w) 1 gm in 100 mls @ 50 mls/hr IV Q2H JOVI Stop: 06/26/23 18:14 Last Admin: 06/26/23 12:13 Dose: 50 mls/hr Pantoprazole Sodium 40 mg/ (Syringe) 10 mls @ 5 mls/min IV NOW ONE Stop: 06/26/23 13:16 ECG Additional Comments: Normal sinus rhythm Normal ECG When compared with ECG of 26-JUN-2023 09:14, No significant change was found Confirmed by Tahir Cheng ([id number]) on 06/26/2023 11:35:28 AM Code Status & VTE Plan VTE Prophylaxis Plan VTE Prophylaxis will be ordered: Yes Supervising Physician Co-Signing Physician Notes Patient seen and examined. Reviewed the case with SON. In brief, this is a 77-year-old male who presented with chest pain that woke him up from sleep. The chest pain radiated to his left shoulder and down his arm. He had elevated blood pressure at home. EMS was called. The patient presented to the emergency room. EKG and troponins were negative. CT angio of the chest was negative. While in the ER, the patient had an episode where he felt dizzy and lightheaded and passed out. He soon recovered. Was given IV fluids. He is being admitted for chest pain rule out ACS. An echocardiogram is being done. If his cardiac enzymes remain negative, he will go for stress test tomorrow. Blood pressure will be managed. He will also be monitored for further episodes of syncope. Agree with the assessment and plan of SON PG Care Time/CCT Total # of Minutes Spent Total Time Spent with Patient: Total time spent is greater than 50% in coordination of care (as documented) at patient's floor/unit and/or counseling patient: Coding Level of Care Code 77267 INT INP/OBS CARE MIN Diagnoses Chest pain R07.9 Chest pain type: unspecified Hypertension I10 Syncope R55 CAD (coronary artery disease) I25.10 Dyslipidemia E78.5 SIMI (obstructive sleep apnea) G47.33 Chronic cough R05 Asthma-COPD overlap syndrome J44.9 Diabetes mellitus type 2 in nonobese E11.9 (1) Chest pain Chest pain type: unspecified Qualified Code(s): R07.9 - Chest pain, unspecified
[2023-06-26] MEDS: PANTOprazole 40 MG in SYRINGE 0 ML IV ONE (13:34)
[2023-06-26] MEDS ORDERED: ALBUTEROL HFA 8 GM INHALER INH PRN (15:05)
[2023-06-26] MEDS ORDERED: NITROGLYCERIN SL 0.4 MG/TAB TAB SL PRN (15:05)
[2023-06-26] MEDS ORDERED: GLUCAGON FOR INJ 1 MG VIAL SQ PRN (15:05)
[2023-06-26] MEDS ORDERED: GLUCOSE 40% GEL 15 GM TUBE PO PRN (15:05)
[2023-06-26] MEDS ORDERED: DEXTROSE 50% 50 ML SYRINGE IV PRN (15:05)
[2023-06-26] MEDS ORDERED: CARBOHYDRATES FOR HYPOGLYCEMIA PO PRN (15:05)
[2023-06-26] MEDS ORDERED: GLUCOSE 10 TAB/TUBE PO PRN (15:05)
--- NOTE | 2023-06-26 16:33 | Communication Note ---
Date of Service: June 26, 2023 Patient presented this morning for chest pain around 0600 as per H&P- HsCTNI 8 hours post peak troponin is 74.9, increase from 7.9 - He currently remains chest pain free, but remains with the epigastric re- producible pain - Will cancel dobutamine stress test for Am at this time and continue to trend out troponin - consideration of adding Heparin infusion based on elevation of HsCTNI, ECG changes, or return of chest pain - Obtain ECHO to eval for RWMA - Consult Cardiology for further recommendations regarding further stratification/evaluation of his chest pain. Cj NOLEN (ACNP-)
--- NOTE | 2023-06-26 16:55 | XCELERA ---
[id number]
[2023-06-26] MEDS: INSULIN ASPART PER UNIT CHARGE SC SCH (16:56)
[2023-06-26] MEDS: ALUMINUM/MAGNESIUM SUSP 30 ML UDC PO STA (19:20)
[2023-06-26] MEDS: PANTOprazole 40 MG in SYRINGE 0 ML IV SCH (21:01)
[2023-06-26] MEDS: HEPARIN SOD 5,000 UNIT/0.5 ML VIAL SQ SCH (21:01)
[2023-06-26] MEDS ORDERED: Heparin IV Adult Wt-Based Low-Dose *NO* INITIAL Bolus Protocol IV STA (21:12)
[2023-06-26] MEDS: HEPARIN SODIUM/DEXTROSE 25,000 UNITS/500 ML BAG IV SCH (22:21)
[2023-06-26 22:23] LABS: INR 0.9 (0.9-1.1); Partial Thromboplastin Time 27 Seconds (21-31); Prothrombin Time 10.2 Seconds (9.0-12.0)
[2023-06-27 04:24] LABS: Basophils # (auto) 0.01 K/uL (0.00-0.20); Basophils % (auto) 0.2 %; Eosinophils # (auto) 0.13 K/uL (0.00-0.50); Eosinophils % (auto) 2.2 %; Hemoglobin 13.1 g/dl (14.0-18.0); Immature Granulocytes # (auto) 0.02 K/uL (0.01-0.20); Immature Granulocytes % (auto) 0.3 %; Lymphocytes # (auto) 1.02 K/uL (1.20-3.40); Lymphocytes % (auto) 17.1 %; Mean Corpuscular Hgb Conc 33.6 g/dL (32.0-36.0); Mean Corpuscular Volume 92.2 fL (80.0-100.0); Mean Platelet Volume 9.1 fL (9.4-12.4); Monocytes # (auto) 0.69 K/uL (0.11-0.59); Monocytes % (auto) 11.5 %; Neutrophils # (auto) 4.11 K/uL (1.40-6.50); Neutrophils % (auto) 68.7 %; Platelet Count 176 K/uL (130-400); RDW Standard Deviation 43.8 fL (36.4-46.3); Red Blood Count 4.23 M/uL (4.70-6.10); White Blood Count 5.98 K/ul (4.8-10.8)
[2023-06-27 04:38] LABS: BUN Creatinine Ratio 11.1 (10-20); Calcium 8.4 mg/dl (8.6-10.3); Creatinine Clr Calc Pharmacy 64.5 ml/min; Est GFR (Non-African American) 74.2 ml/min; Potassium 4.2 mmol/L (3.5-5.1)
[2023-06-27 04:52] LABS: Troponin I High Sensitivity 1121.4 pg/ml (0-20)
[2023-06-27 04:53] LABS: ANTI-Xa, UFH(UnfractionatedHep 0.45 IU/ml (0.3-0.7)
[2023-06-27 07:17] LABS: Estimated Average Glucose 189 mg/dl; Hemoglobin A1C 8.2 % (4.5-5.6)
[2023-06-27] MEDS: CYANOCOBALAMIN (B-12) 500 MCG TABLET PO SCH (08:40)
[2023-06-27] MEDS: LORATADINE 10 MG TAB PO SCH (08:40)
[2023-06-27] MEDS: METOPROLOL SUCC 25MG EXT REL TAB PO SCH (08:40)
[2023-06-27] MEDS: PARoxetine HCL 20 MG TAB PO SCH (08:40)
[2023-06-27] MEDS: FLUTICASONE PROPIONATE NA SPR 16 GM BTL NAE SCH (08:41)
[2023-06-27] MEDS: ASPIRIN 81 MG ECTAB PO SCH (08:41)
[2023-06-27] MEDS: UMECLIDINIUM/VILANTEROL 62.5/25MCG 7 PUFFS/INHALER INH SCH (08:42)
[2023-06-27] MEDS: FLUTICASONE FUROATE 200MCG 14 PUFFS/INHALER INH SCH (08:42)
[2023-06-27] MEDS ORDERED: ROSUVASTATIN CALCIUM 10 MG TAB PO SCH (09:00)
[2023-06-27] MEDS ORDERED: NON-FORMULARY MEDICATION (Fluticasone-Umeclidin-Vilanter [Trelegy Ellipta] 200-62.5-25 mcg INH SCH (09:00)
[2023-06-27] MEDS: ACETAMINOPHEN 325 MG TAB PO PRN (09:04)
--- NOTE | 2023-06-27 10:04 | Pre Anesthesia Assessment ---
Date of Service June 27, 2023 Pre Sedation Assessment Vital Signs Temp Pulse Pulse Resp BP BP BP 06/27/23 07:57 37.4 C 78 16 115/76 06/27/23 07:52 06/27/23 07:00 65 06/27/23 04:00 37.0 C 72 18 128/70 06/27/23 00:00 36.9 C 82 18 159/84 H 06/26/23 23:29 69 06/26/23 19:58 06/26/23 19:30 36.8 C 69 18 183/90 H 175/102 H 06/26/23 16:17 06/26/23 16:17 36.3 C L 71 18 144/90 H 06/26/23 15:08 36.3 C L 71 18 144/90 H 06/26/23 15:07 72 06/26/23 12:00 63 20 146/87 H 06/26/23 11:30 66 13 148/86 H 06/26/23 11:28 70 21 169/87 H 06/26/23 11:00 58 L 16 144/75 H 06/26/23 10:30 63 23 120/77 06/26/23 10:10 60 16 Pulse Ox O2 Del Method O2 Flow Rate 06/27/23 07:57 98 Nasal Cannula 2 06/27/23 07:52 Room Air 06/27/23 07:00 06/27/23 04:00 96 Nasal Cannula 2 06/27/23 00:00 95 Nasal Cannula 2 06/26/23 23:29 06/26/23 19:58 Room Air, Nasal Cannula 2 06/26/23 19:30 94 Room Air 06/26/23 16:17 Room Air, CPAP 2 06/26/23 16:17 95 Room Air 06/26/23 15:08 95 Room Air 06/26/23 15:07 06/26/23 12:00 98 Nasal Cannula 2 06/26/23 11:30 98 Nasal Cannula 2 06/26/23 11:28 91 06/26/23 11:00 97 Nasal Cannula 2 06/26/23 10:30 95 Nasal Cannula 2 06/26/23 10:10 98 Nasal Cannula 2 Cardiovascular + regular rate Respiratory + diminished lung sounds Pre-Sedation Airway Assessment Smoking Status: Former smoker Mallampati Class: I ASA: ASA3 NPO Status Date of Last Intake of Fluids: 06/27/23 Time of Last Intake of Fluids: 09:00 Last Oral Intake of Fluids Comment: sips with meds Date of Last Intake of Solid Food: 06/26/23 Time of Last Intake of Solid Foods: 18:00 Procedure Planning Contraindications for Sedation: none Current Medications Reviewed: Yes Notes The planned sedation has been discussed with the patient. Informed Consent was obtained. I have identified the patient, determined the appropriateness of sedation and have assessed the patient immediately prior to the procedure. All medicine(s) and interventions are by my order.
--- NOTE | 2023-06-27 10:09 | Cardiology Consultation ---
Date of Consultation June 27, 2023 Assessment & Plan (1) Non-ST elevation (NSTEMI) myocardial infarction: (2) CAD (coronary artery disease): (3) Dyslipidemia: (4) Near syncope: (5) Hypertension: Plan ASSESSMENT/PLAN: 1. NSTEMI: Presentation concerning for NSTEMI and troponin continues to trend upward. Currently chest pain-free. Also has chronic atypical chest pain issues intermittently. Continue heparin drip. Continue aspirin. Recommend cardiac catheterization. Risks and benefits were discussed with him in detail. He was agreeable to proceed. Continue beta-tereza. Agree with high intensity statin therapy. Agree with RUTH inhibitor but captopril is very short acting and only currently receiving once daily. Will transition to low-dose lisinopril 2.5 mg daily tomorrow. Recommend cardiac rehab on discharge. Trend troponin until peak. 2. CAD: Previously documented nonobstructive CAD but new/different chest discomfort with upward trending troponin levels. Plan as above. Continue aspirin, beta-tereza, statin therapy. 3. Hypertension: Was initially hypertensive and had a symptomatic episode of hypotension in the ER. Blood pressure mostly hypertensive since then but well- controlled this morning. Continue regimen as above while replacing captopril with long-acting RUTH inhibitor if tolerated. 4. Dyslipidemia: Goal LDL <70. Apparently did not tolerate some statin in the past but has been tolerating rosuvastatin 10 mg daily. Agree with increased and statin therapy for high intensity statin therapy. Continue rosuvastatin 20 mg once daily for now and can further increase if tolerated and if necessary. Mediterranean diet. 5. Near syncope: Was hypotensive at that time in the ER. Reportedly was also bradycardic to some degree. May have been a vagal event. Had also received nitroglycerin with EMS. Continue telemetry. 6. Disposition: Cardiology will continue to follow. Patient care communicated with primary hospitalist, Dr. Burdick. Cardiac rehab on discharge. Highly complex medical issues. Thank you for allowing me to participate in the care of your patient. Please call for any other questions or concerns. Sincerely, Mg Garcia M.D. History of Present Illness Reason for Consultation: NSTEMI Requesting Physician: Cj NOLEN Attending Physician: Jerry Burdick History of Present Illness Mr. Aaron is a very pleasant 77-year-old gentleman with a history significant fo r CAD, type 2 diabetes, hypertension, dyslipidemia COPD, sleep apnea on CPAP, and prostate cancer s/p prostatectomy (2017). He has followed in the outpatient cardiology office with Mr. Salvatore BRAVO. He has had the following studies/procedures: 1. Cardiac cath 06/24/2021 [facility] (Dr. Souza): Proximal LAD 30%. D2 ostial 40%. Mid circumflex 20 to 30%. Distal circumflex 40 to 50%. Dominant RCA. P roximal RCA 50%. 2. Echo 06/26/2023: Normal LV size, wall motion, systolic function. EF 60-65%. Mild AI. Mild MR. In 2021, he underwent outpatient cardiac catheterization for chest discomfort. He states that he has chest discomfort on occasion chronically. He was admitted for this hospitalization on 06/26/2023 for different chest discomfort. It was a left-sided sharp pain that radiated to his left shoulder and down his left arm, with diaphoresis and increased shortness of breath from baseline. It occurred on 06/26/2023 at approximately 6 AM. He took aspirin 162 mg and 2 Gas-X without relief. Per his home blood pressure cuff, blood pressure was elevated at 210/96 mmHg. He called 911. He received nitroglycerin x 2 with complete resolution of his chest discomfort and has not had recurrence while here. He has been on a heparin drip. His initial high-sensitivity troponin was 7.4 and then has steadily increased to 79, 427, and 1121 this morning. He has had increased dyspnea on exertion this past week without significant improvement from his inhaler. For the past 1 week he also has had increased left-sided chest discomfort with radiation to his left shoulder. In the emergency department, he had a near syncopal event and was found to be hypotensive. There apparently was no neurologic deficits at that time. He otherwise denies syncope or near syncope. This ER event occurred after his nitroglycerin administration. He denies melena, hematochezia, or hematuria. He had diarrhea 2 or 3 days prior to presentation which has since resolved. He has a chronic cough with yellow sputum which he attributes to his COPD. He states "I know I have an anger issue and I take pills for that." But apparently for the past week, he has been more irritable than normal. He had myalgias to some statin in the past but is tolerating rosuvastatin. He is currently chest pain-free. Review of systems: As above. Review of systems otherwise negative/unremarkable. Family history: Father from [place] when patient was young. He has 12 siblings. Of the 13 children in his family, all but to have COPD. Social history: He quit smoking approximately 30 years ago after 1.5 pack/day. Consume significant alcohol in the past but quit > 30 years ago. Denies drug abuse. Lives at home with his . Has a son and a daughter. Has grandchildren. Worked in [employer]. His was present at the bedside. Allergies Allergy/AdvReac Type Severity Reaction Status Date / Time nirmatrelvir [From Paxlovid] Allergy Intermediate Made me Unverified 06/26/23 11:59 extremely hot ritonavir [From Paxlovid] Allergy Intermediate Made me Unverified 06/26/23 11:59 extremely hot erythromycin base AdvReac Intermediate Rectal Verified 06/26/23 11:59 bleeding Knylopb-LOK-QzQ Reductase AdvReac Unknown CAN'T Verified 06/26/23 12:07 Inhibitor REMEMBER [Mutheqz-Ejg-Tkc Reductase Inhibitor] Home Medications Medication Instructions Recorded Confirmed Type loratadine 10 mg tablet 10 mg PO DAILY 04/16/18 06/26/23 History fluticasone propionate 50 2 sprays intranasal DAILY 11/07/18 06/26/23 History mcg/actuation nasal spray,suspension (Allergy Relief (fluticasone)) blood sugar diagnostic ([place] #50 ea 02/18/21 01/17/23 Rx Verio test strips) lancets 33 gauge ([facility] #100 ea 02/18/21 01/17/23 Rx Lancets) albuterol sulfate 90 mcg/actuation 2 puff inhalation QID PRN 03/11/21 06/26/23 Rx aerosol inhaler Shortness Of Breath Or Wheezing #8.5 grams Portable Oxygen E0431 #1 ea 04/23/21 01/17/23 Rx aspirin 81 mg tablet,delayed 81 mg PO DAILY 06/23/21 06/26/23 History release (Adult Aspirin Regimen) metformin 500 mg tablet 1,000 mg (2 x 500 mg) PO DAILY 08/17/22 06/26/23 Rx #180 tabs rosuvastatin 10 mg tablet 10 mg PO DAILY #90 tabs 11/04/22 06/26/23 Rx metoprolol succinate 25 mg 25 mg PO DAILY #90 tabs 01/25/23 06/26/23 Rx tablet,extended release 24 hr paroxetine HCl 20 mg tablet 20 mg PO QAM #90 tabs 01/28/23 06/26/23 Rx fluticasone fur. 200 mcg-umeclid 1 inh inhalation DAILY #60 ea 04/29/23 06/26/23 Rx 62.5 mcg-vilant 25 mcg inhalat.powder (Trelegy Ellipta) cyanocobalamin (vitamin B-12) 1,000 mcg PO DAILY 06/12/23 06/26/23 History 1,000 mcg tablet (Vitamin B-12) multivitamin 1 tab PO DAILY 06/12/23 06/26/23 History cholecalciferol (vitamin D3) 25 25 mcg PO QAM 30 days #30 caps 06/14/23 06/26/23 Rx mcg (1,000 unit) capsule famotidine 40 mg tablet 40 mg PO DAILY gerd #90 tabs 06/20/23 06/26/23 Rx Patient History Medical History (Updated 06/27/23 @ 11:24 by Christian Garcia MD) Dyslipidemia CAD (coronary artery disease) Chronic bronchitis with productive mucopurulent cough SIMI (obstructive sleep apnea) Asthma-COPD overlap syndrome Upper airway cough syndrome Chronic cough History of nicotine dependence SIMI (obstructive sleep apnea) Excessive daytime sleepiness Snoring Hypertension Arthritis Anxiety Allergic rhinitis Deviated nasal septum Prostate cancer (10/27/16) Surgical History Hx of cardiac cath 2021 History of back surgery H/O laminectomy Lumbar spine History of surgery H/o back surgery H/O radical retropubic prostatectomy Family History Family/Other COPD (chronic obstructive pulmonary disease) Mother COPD (chronic obstructive pulmonary disease) Diabetes Hypertension Other Myocardial infarction No family history of bleeding disorder Denies family history of Ovarian cancer Prostate cancer Heart disease Breast cancer Colorectal cancer Cancer Stroke Asthma Social History Smoking Status: Former smoker Tobacco Type: Cigarettes Age Started Using Tobacco: 23; Age Quit Using Tobacco: 60; packs per day: 1.5; Cigarettes Per Day: 30; Second Hand Exposure: No; Do You Dip or Chew Tobacco: No; Hx Alcohol Use: No Hx Substance Use: No Preferred Language: Andorran Communication Ability: Effective Visual Impairment: No Limitations Hearing Ability: Normal In Home Baby Sitter Required: No Beliefs That Will Affect Care: None marital status: Current Living Situation: Spouse Current Living Situation Comment: 2 story appartment current occupational status: retired current occupation: retired from career with maintenance work Feels Safe at Home: Yes Childhood Exposure to Second-Hand Smoke: No Diet: regular Dental Care, Regularly: No Physical Activity Frequency: Does not Exercise Seatbelt Use: always Sunscreen Use: No Assistive Devices: Denture - Upper, Denture - Lower and Glasses Physical Exam Physical Exam: Gen.: No acute distress. Alert and oriented. HEENT: Anicteric sclera. Neck: No JVD. No bruits. Normal carotid upstrokes bilaterally. Cardiac: No ventricular heave. Regular. Distant heart sounds. No murmurs, rubs, or gallops. Pulmonary: Decreased breath sounds throughout, but otherwise clear to auscultation bilaterally without wheezes, rales, or rhonchi. Abdomen: Soft, nontender, nondistended, with normoactive bowel sounds. No bruits noted. Extremities: 2+ radial pulses bilaterally. 2+ posterior tibialis pulses bilaterally. No edema or cyanosis. Psychiatric: Affect appears appropriate. Chest: Focal tenderness lower chest near the left sternal border, but different than presenting chest pain described by patient. Results & Data Vital Signs (Past 12 Hours) Vital Signs Temp Pulse Pulse Resp BP BP Pulse Ox 06/27/23 07:57 37.4 C 78 16 115/76 98 06/27/23 07:52 06/27/23 07:00 65 06/27/23 04:00 37.0 C 72 18 128/70 96 06/27/23 00:00 36.9 C 82 18 159/84 H 95 06/26/23 23:29 69 O2 Del Method O2 Flow Rate 06/27/23 07:57 Nasal Cannula 2 06/27/23 07:52 Room Air 06/27/23 07:00 06/27/23 04:00 Nasal Cannula 2 06/27/23 00:00 Nasal Cannula 2 06/26/23 23:29 Laboratory Results Laboratory Results - last 24 hr 06/26/23 06/26/23 06/26/23 10:53 15:00 15:17 WBC RBC Hgb Hct MCV MCH MCHC RDW Std Deviation RDW Coeff of [place] Plt Count MPV Immature Gran % (Auto) Neut % (Auto) Lymph % (Auto) [place] % (Auto) Eos % (Auto) Baso % (Auto) Neut # (Auto) Lymph # (Auto) [place] # (Auto) Eos # (Auto) Baso # (Auto) Immature Gran # (Auto) PT INR APTT PTT Ratio D-Dimer 1110 H* Heparin Anti-Xa, Unfract Sodium Potassium Chloride Carbon Dioxide Anion Gap BUN Creatinine Est Cr Clr Drug Dosing Est GFR ( Amer) Est GFR (Non-Af Amer) BUN/Creatinine Ratio Glucose POC Glucose 180 H Estimat Average Glucose Hemoglobin A1c Calcium Magnesium Troponin I High Sens 79.0 H* D Hepatitis C Ab (EIA) 06/26/23 06/26/23 06/26/23 19:50 20:55 21:33 WBC RBC Hgb Hct MCV MCH MCHC RDW Std Deviation RDW Coeff of [place] Plt Count MPV Immature Gran % (Auto) Neut % (Auto) Lymph % (Auto) [place] % (Auto) Eos % (Auto) Baso % (Auto) Neut # (Auto) Lymph # (Auto) [place] # (Auto) Eos # (Auto) Baso # (Auto) Immature Gran # (Auto) PT 10.2 INR 0.9 APTT 27 PTT Ratio 1.0 D-Dimer Heparin Anti-Xa, Unfract Sodium Potassium Chloride Carbon Dioxide Anion Gap BUN Creatinine Est Cr Clr Drug Dosing Est GFR ( Amer) Est GFR (Non-Af Amer) BUN/Creatinine Ratio Glucose POC Glucose 115 H Estimat Average Glucose Hemoglobin A1c Calcium Magnesium Troponin I High Sens 427.0 H* D Hepatitis C Ab (EIA) 06/27/23 06/27/23 04:02 08:03 WBC 5.98 RBC 4.23 L Hgb 13.1 L Hct 39.0 L MCV 92.2 MCH 31.0 MCHC 33.6 RDW Std Deviation 43.8 RDW Coeff of [place] 13.0 Plt Count 176 MPV 9.1 L Immature Gran % (Auto) 0.3 Neut % (Auto) 68.7 Lymph % (Auto) 17.1 [place] % (Auto) 11.5 Eos % (Auto) 2.2 Baso % (Auto) 0.2 Neut # (Auto) 4.11 Lymph # (Auto) 1.02 L [place] # (Auto) 0.69 H Eos # (Auto) 0.13 Baso # (Auto) 0.01 Immature Gran # (Auto) 0.02 PT INR APTT PTT Ratio D-Dimer Heparin Anti-Xa, Unfract 0.45 Sodium 138 Potassium 4.2 Chloride 105 Carbon Dioxide 24 Anion Gap 9 BUN 11 Creatinine 0.99 Est Cr Clr Drug Dosing 64.5 Est GFR ( Amer) 86.0 Est GFR (Non-Af Amer) 74.2 BUN/Creatinine Ratio 11.1 Glucose 156 H POC Glucose 148 H Estimat Average Glucose 189 Hemoglobin A1c 8.2 H Calcium 8.4 L Magnesium 2.0 Troponin I High Sens 1121.4 H* D Hepatitis C Ab (EIA) Pending Diagnostic Findings Telemetry personally reviewed: Sinus rhythm. No arrhythmia. ECGs personally reviewed: ECG 06/27/2023 at 6:11 AM: Sinus rhythm 74 bpm. Possible inferior infarct. ECG 06/26/2023 at 1912: Sinus rhythm 67 bpm. Cannot exclude inferior infarct. ECG 06/26/2023 at 9:14 AM: Sinus rhythm 68 bpm. Cannot exclude inferior infarct. Echo report reviewed as noted above in HPI. Cardiac catheterization report reviewed as noted above in HPI. Images personally reviewed from 2021 notable for nonobstructive CAD. Labs reviewed and notable for elevated high-sensitivity troponin which is trending upward, mild anemia, elevated LDL in the setting of CAD, normal transaminase levels, elevated A1c, stable renal function, normal potassium. History and physical report reviewed. CTA chest 06/26/2023: No PE. Emphysema and bronchial wall thickening per radiology. Medications Administered Current Inpatient Medications Acetaminophen (Acetaminophen 325 Mg Tab) 650 mg PO Q4H PRN PRN Reason: Pain or Fever Stop: 07/26/23 15:04 Last Admin: 06/27/23 09:04 Dose: 650 mg Albuterol (Albuterol Hfa 8 Gm Inhaler) 2 puffs INH QID PRN PRN Reason: Shortness Of Breath Or Wheezing Stop: 07/26/23 15:04 Albuterol (Albut/Ipratrop 3mg/0.5mg Neb 3 Ml Vial) 3 ml NEB Q4R PRN; Protocol PRN Reason: Wheezing Stop: 07/27/23 10:59 Aspirin (Aspirin 81 Mg Ectab) 81 mg PO DAILY JOVI Stop: 07/27/23 08:59 Last Admin: 06/27/23 08:41 Dose: 81 mg Captopril (Captopril 12.5 Mg Tab) 6.25 mg PO DAILY JOVI Stop: 07/27/23 08:59 Last Admin: 06/27/23 08:39 Dose: 6.25 mg Cyanocobalamin (Cyanocobalamin (B-12) 500 Mcg Tablet) 1,000 mcg PO DAILY JOVI Stop: 07/27/23 08:59 Last Admin: 06/27/23 08:40 Dose: 1,000 mcg Dextrose (Dextrose 50% 50 Ml Syringe) 25 - 50 ml IV UD PRN; Protocol PRN Reason: Hypoglycemia Protocol Stop: 07/26/23 15:04 Fluticasone Furoate (Fluticasone Furoate 200mcg 14 Puffs/Inhaler) 1 puffs INH DAILY JOVI Stop: 07/27/23 08:59 Last Admin: 06/27/23 08:42 Dose: 1 puffs Fluticasone Propionate (Fluticasone Propionate Na Spr 16 Gm Btl) 2 sprays [place] DAILY JOVI Stop: 07/27/23 08:59 Last Admin: 06/27/23 08:41 Dose: 2 sprays Glucagon (Glucagon For Inj 1 Mg Vial) 1 mg SQ UD PRN; Protocol PRN Reason: Hypoglycemia Protocol Stop: 07/26/23 15:04 Glucose (Glucose 10 Tab/Tube) 4 - 8 tab PO UD PRN; Protocol PRN Reason: Hypoglycemia Treatment Stop: 07/26/23 15:04 Glucose (Glucose 40% Gel 15 Gm Tube) 15 - 30 gm PO UD PRN; Protocol PRN Reason: Hypoglycemia Protocol Stop: 07/26/23 15:04 Pantoprazole Sodium 40 mg/ (Syringe) 10 mls @ 5 mls/min IV BID JVOI Stop: 07/26/23 20:59 Last Admin: 06/27/23 08:42 Dose: 5 mls/min Heparin Sodium/Dextrose (Heparin Sodium/Dextrose) 25,000 units in 500 mls @ 17 mls/hr IV .Q24H JOVI; Protocol Stop: 07/26/23 21:29 Last Titration: 06/27/23 07:02 Dose: 850 units/hr, 17 mls/hr Insulin Aspart (Insulin Aspart Per Unit Charge) 0 units SC ACHS [facility] Stop: 07/26/23 16:29 Last Admin: 06/27/23 08:34 Dose: Not Given Loratadine (Loratadine 10 Mg Tab) 10 mg PO DAILY [facility] Stop: 07/27/23 08:59 Last Admin: 06/27/23 08:40 Dose: 10 mg Metoprolol Succinate (Metoprolol Succ 25mg Ext Rel Tab) 25 mg PO DAILY [facility] Stop: 07/27/23 08:59 Last Admin: 06/27/23 08:40 Dose: 25 mg Miscellaneous (Carbohydrates For Hypoglycemia ) 15 - 30 gm PO UD PRN PRN Reason: Hypoglycemia Protocol Stop: 07/26/23 15:04 Nitroglycerin (Nitroglycerin Sl 0.4 Mg/Tab Tab) 0.4 mg SL Q5M PRN PRN Reason: Chest Pain- non reproducible Stop: 07/26/23 15:04 Paroxetine HCl (Paroxetine Hcl 20 Mg Tab) 20 mg PO QAM [facility] Stop: 07/27/23 08:59 Last Admin: 06/27/23 08:40 Dose: 20 mg Rosuvastatin Calcium (Rosuvastatin Calcium 20 Mg Tab) 20 mg PO DAILY [facility] Stop: 07/27/23 08:59 Last Admin: 06/27/23 10:54 Dose: 20 mg Umeclidinium/Vilanterol (Umeclidinium/Vilanterol 62.5/25mcg 7 Puffs/Inhaler) 1 puffs INH DAILY [facility] Stop: 07/27/23 08:59 Last Admin: 06/27/23 08:42 Dose: 1 puffs PG Care Time/CCT Total # of Minutes Spent Total Time Spent with Patient: Total time spent is greater than 50% in coordination of care (as documented) at patient's floor/unit and/or counseling patient: Coding Level of Care Code 50347 INT INP/OBS CARE 3/75MIN Diagnoses Non-ST elevation (NSTEMI) myocardial infarction I21.4 CAD (coronary artery disease) I25.10 Dyslipidemia E78.5 Near syncope R55 Hypertension I10
[2023-06-27] MEDS ORDERED: ALBUT/IPRATROP 3MG/0.5MG NEB 3 ML VIAL NEB PRN (10:51)
--- NOTE | 2023-06-27 10:51 | Hospitalist Progress Note ---
Date of Service June 27, 2023 Assessment & Plan (1) Chest pain: Plan: Patient reports with chest pain with radiation to left shoulder and down left arm that woke him from sleep, associated with elevated blood pressure, and relieved with NTG spray x3 - ECG no acute changes and initiatl HsCTNI negtive- however troponin increasing 7.4 --> 79 --> 427 --> 1121 - Echo: EF 60-65%, borderline LVH, grade 1 diastolic dysfunction - Cardiology consulted - Continue Heparin drip/ASA/Beta Alondra - Continue high intensity statin - Recommend Cardiac cath --> nonobstructive CAD, no significant aortic stenosis, normal left sided filling pressure - Switch to lisinopril 2.5mg daily - Recommend cardiac rehab at discharge - Trend troponin until peak - PRN NTG for non-reproducible chest pain Patient also has component of atypical/ MSK chest pain that is reproducible and located at his xyphoid process - This is likely multifactorial at this time, to include chronic cough exacerbated by recent COVID as well as possible GERD component - Continue Protonix 40mg BID - steroids have been stopped (2) Hypertension: Plan: Patient has what appears to be symptomatic uncontrolled HTN - Continue Metoprolol Succinate 25mg Daily - Transition Captopril to lisinopril as above (3) Syncope: Plan: Patient with eppisode of flushing and syncope associated with reported hypotension while in the ED. - possible vagal event with coughing and recent NTG administration - Doubt neurological involvement at this time as he is without any nuero deficits or ataxia or speach difficulty, as well as short lived and self resolving - Admit on telemetry follow for arrhythmia (4) CAD (coronary artery disease): Plan: Continue metoprolol, ASA Statin increased to high intesnity dose (5) Dyslipidemia: Plan: Rosuvastatin increased to 20mg (6) SIMI (obstructive sleep apnea): Plan: Continue with CPAP 8CM H20 at bedtime and as needed (7) Chronic cough: Plan: Acute on Chronic likely with exacerbation of his underlying asthma/copd overlap syndrome - continue with inhaled fluticasone - Trelege or equivalent while in house - prn nebs (8) Diabetes mellitus type 2 in nonobese: Plan: Hold home metformin Insulin sliding scale HgbA1c: 8.2 - 110-160, CF 20 Carb ratio 1:12 - Adjust as desired for BG <180mg/dl Plan Dispo: continued inpatient stay, transfer to PCU s/p cath DVT progh: Heparin gtt updated at bedside Admission and Anticipated Discharge Date Admission Date: June 26, 2023 Subjective Patient seen resting in bed. He denies CP currently states only when he eats seen by cardiology - plan for Cath today SOB with activity. reports chronic cough, + sputum production SR 60-70s Review of Systems Review of Systems: All systems reviewed & are unremarkable except as noted in Subjective Physical Exam Physical Exam: General: NAD, VS as above Resp: normal respiratory effort, expiratory wheeze, cough present CV: RRR, no murmur, Abd: normal bowel sounds, non tender, no hepatosplenomegaly Extremities: Moves all extremities, no edema Neuro: A&O x3, Results & Data Results & Data Vital Signs (Past 12 Hours) Vital Signs Temp Pulse Pulse Resp BP BP Pulse Ox 06/27/23 07:57 37.4 C 78 16 115/76 98 06/27/23 07:52 06/27/23 07:00 65 06/27/23 04:00 37.0 C 72 18 128/70 96 06/27/23 00:00 36.9 C 82 18 159/84 H 95 06/26/23 23:29 69 O2 Del Method O2 Flow Rate 06/27/23 07:57 Nasal Cannula 2 06/27/23 07:52 Room Air 06/27/23 07:00 06/27/23 04:00 Nasal Cannula 2 06/27/23 00:00 Nasal Cannula 2 06/26/23 23:29 Laboratory Results CBC, chemistry, troponin and Hgba1c reviewed PG Care Time/CCT Total # of Minutes Spent Total Time Spent with Patient: Total time spent is greater than 50% in coordination of care (as documented) at patient's floor/unit and/or counseling patient: Coding Level of Care Code 65170 SUB INP/OBS CARE 3/50MIN Diagnoses Chest pain R07.9 Chest pain type: unspecified Hypertension I10 Syncope R55 CAD (coronary artery disease) I25.10 Dyslipidemia E78.5 SIMI (obstructive sleep apnea) G47.33 Chronic cough R05 Diabetes mellitus type 2 in nonobese E11.9 (1) Chest pain Chest pain type: unspecified Qualified Code(s): R07.9 - Chest pain, unspecified
[2023-06-27] MEDS: ROSUVASTATIN CALCIUM 20 MG TAB PO SCH (10:54)
--- NOTE | 2023-06-27 14:16 | Post Operative Brief Note ---
Cardiology Brief Post Op Date of Surgery June 27, 2023 Pre & Post Diagnosis Operation Date: 06/27/23 11:00 <No data on this case meets the specified criteria> Procedure Cardiac catheterization [employer] Christian Garcia MD Ore Charger Director Pediatric Estimated Blood Loss 15 Findings See Below Nonobstructive CAD. Normal LVEDP. Full report to follow.
--- NOTE | 2023-06-27 14:30 | Post Anesthesia Assessment ---
Date of Service June 27, 2023 Post Sedation Assessment Vital Signs Temp Pulse Pulse Resp BP BP Pulse Ox 06/27/23 14:10 60 129/72 92 06/27/23 11:34 36.6 C 64 16 123/71 94 06/27/23 07:57 37.4 C 78 16 115/76 98 06/27/23 07:52 06/27/23 07:00 65 06/27/23 04:00 37.0 C 72 18 128/70 96 06/27/23 00:00 36.9 C 82 18 159/84 H 95 06/26/23 23:29 69 06/26/23 19:58 06/26/23 19:30 36.8 C 69 18 183/90 H 175/102 H 94 06/26/23 16:17 06/26/23 16:17 36.3 C L 71 18 144/90 H 95 06/26/23 15:08 36.3 C L 71 18 144/90 H 95 06/26/23 15:07 72 O2 Del Method O2 Flow Rate 06/27/23 14:10 Room Air 06/27/23 11:34 Room Air 06/27/23 07:57 Nasal Cannula 2 06/27/23 07:52 Room Air 06/27/23 07:00 06/27/23 04:00 Nasal Cannula 2 06/27/23 00:00 Nasal Cannula 2 06/26/23 23:29 06/26/23 19:58 Room Air, Nasal Cannula 2 06/26/23 19:30 Room Air 06/26/23 16:17 Room Air, CPAP 2 06/26/23 16:17 Room Air 06/26/23 15:08 Room Air 06/26/23 15:07 Recovery Score Activity: Moves 4 extremities Respiration: Deep Breath/Cough Circulation: +/-20% PreAnes Value Consciousness: Fully Awake Oxygen Saturation: > 92% On Room Air Post Anesthesia Score: 10 Discharge Sedation Level of Care: Fast Track Phase II Post Sedation Plan On clinical assessment, the patient appears to have tolerated the sedation without complications. Patient is recovering as anticipated. Patient will continue to be monitored by nursing and may be discharged when sedation discharge criteria are met per below protocol. Upon Completions of procedure up to 15 minutes continue every 5 minute vital signs and the P.A.R. score; then discharge to a Phase I or Fast Track to Phase II per the following guidelines: * Discharge Patient to appropriate Phase II area if PAR is 8 or greater or return to pre- procedure baseline. The post - procedure orders will be as directed. * If PAR score is less than 8 or not return to pre-procedure baseline then patient will follow Phase I monitoring till PAR is reached for Phase II. The Phase I may be done in procedure room or may call to secure a Phase I area. * If naloxone or flumazenil are used for reversal, hold in Phase I for continued monitoring from when last reversal dose was given for a minimum of 60 minutes or longer pending the nurse and/or physician discretion of patient condition before discharge to Phase II. Please call the Sedation Physician to re-evaluate and complete post-note for discharge to Phase II area. Do NOT discharge from procedure sedation or Phase 1 until post- sedation evaluation note is complete by procedure /sedation MD Sedation Discharge Instructions to be given to the patient at discharge to home.
--- NOTE | 2023-06-27 14:32 | Cardiac Catheterization ---
[facility] Data: Manager Economic Cardiac Status Clinical evaluation leading to the procedure CAD Presenation: Non STEMI Anginal Classification: CCS IV Heart Failure: No Cardiogenic Shock within 24 Hours: No Cardiac Arrest within 24 Hours: No Imaging Studies Past 6 Months: Yes Stress Studies Past 6 Months: No Coronary Anatomy Dominant: Right Diagnostic Physicians Name: Christian Garcia MD Status: Elective Closure Device Percutaneous Entry Location: Radial Closure Device: Radial Band Recommendations: Management Recommendatons Cardiac Cath Procedure Full Procedure Date June 27, 2023 Pre-Procedure Diagnosis Pre-Procedure Diagnosis: Non STEMI AUC Score AUC Score: 8 Post-Procedure Diagnosis Post-Procedure Diagnosis: Moderate CAD Procedure(s) Performed Procedure(s) Performed: Coronary Angiography and Left Heart Cath Attraction Worker Christian Garcia MD Edge Gluer(s) Shank Inspector Estimated Blood Loss Estimated Blood Loss: < 20 ml Medication(s) Medication(s): Fentanyl, Heparin, Lidocaine 1%, Nicardipine and Versed Summary of Findings Procedures: 1. Coronary angiography 2. Left heart catheterization 3. Moderate sedation Indication: Mr. Aaron is a very pleasant 77-year-old gentleman with a history significant for CAD, type 2 diabetes, hypertension, dyslipidemia COPD, sleep apnea on CPAP, and prostate cancer s/p prostatectomy (2017) who presented with left-sided chest pain with radiation to the left arm and elevated high- sensitivity troponin, consistent with NSTEMI. Coronary angiography: 1. Left main: No significant CAD. 2. Left anterior descending: Early mid LAD 20 to 30%. Otherwise, luminal ir regularities in the mid and distal LAD. Small D1. Large D2 ostial 30%. 3. Circumflex: Mid circumflex 20%. Distal circumflex 40% followed by 30% and 50%. Very small OM1. OM [address] without significant CAD. 4. Right coronary artery: RCA is large and dominant. Early mid RCA 30 to 40%. No significant CAD within the PDA and PL. Left heart catheterization: 1. Left ventriculography was not performed. 2. Normal LVEDP; 11 mmHg. 3. No significant aortic stenosis. Peak to peak gradient across the aortic valve < 10 mmHg. Moderate sedation: 1. Sedation start time: 1:45 PM 2. Sedation end time: 2:03 PM Procedural notes: 1. Procedure performed via the right radial artery without known complication. 2. Procedure completed with 5 Frisian diagnostic Pollock catheter. Impression: 1. Nonobstructive CAD. 2. No significant aortic stenosis. 3. Normal left-sided filling pressure. Plan: 1. Risk factor modification. Hemodynamics Rest Ao:: 137/64 Final Ao: 132/57 LV: 131/0/11 Recommendations Recommendations: Management Recommendatons Specimens Specimens: None Radiation Exposure (mGy) 519 mGy. Fluoro time 4.4 min. Contrast (mls) 35 ml Procedural Complication(s) None Disposition PCU I attest to the content of the Intraoperative Record and any orders documented therein. Any exceptions are noted below. [facility] Procedure Codes Cardiac Catheterization Procedure 1: Cardiovascular Cath Procedures: 62411 Coronaries and LHC (+/-LV) Moderate Sedation Procedure 1: Sedation/Anesthesia: 08134 Mod Sedation by the same physician;Init15 Min Child Age 5 & Up Procedure 2: Sedation/Anesthesia: 39217 Mod Sedation by the same physician; Ea [id number] Minutes PG Care Time/CCT Total # of Minutes Spent Total Time Spent with Patient: Total time spent is greater than 50% in coordination of care (as documented) at patient's floor/unit and/or counseling patient:
[2023-06-27] MEDS: SODIUM CHLORIDE 0.9% 1,000 ML IV SCH (16:06)
[2023-06-27] MEDS: HEPARIN (PORCINE) 1000 UNIT/ML 10 ML (CATH LAB USE ONLY) ONE (19:41)
[2023-06-27] MEDS: niCARdipine HCL INJ 2.5 MG/ML 10 ML AMP ONE (19:42)
[2023-06-27] MEDS: MIDAZOLAM HCL 1 MG/ML 2ML VIAL ONE (19:42)
[2023-06-27] MEDS: NITROGLYCERIN/D5W 100MCG/ML 20ML SYR ONE (19:42)
[2023-06-27] MEDS: fentaNYL citrate PF 100 MCG/2 ML VIAL ONE (19:42)
[2023-06-27] MEDS: OPTIRAY 350 ONE (19:42)
--- NOTE | 2023-06-28 05:33 | Electrocardiogram Report ---
Test Reason : Blood Pressure : / mmHG Vent. Rate : 067 BPM Atrial Rate : 067 BPM P-R Int : 190 ms QRS Dur : 084 ms QT Int : 398 ms P-R-T Axes : 060 012 075 degrees QTc Int : 420 ms Normal sinus rhythm Normal ECG When compared with ECG of 26-JUN-2023 09:36, No significant change was found Confirmed by Christian Garcia ([id number]) on 06/28/2023 5:33:35 AM Referred By: REFERRED SELF Confirmed By:Christian Garcia
--- NOTE | 2023-06-28 05:47 | Electrocardiogram Report ---
Test Reason : Blood Pressure : / mmHG Vent. Rate : 074 BPM Atrial Rate : 074 BPM P-R Int : 170 ms QRS Dur : 080 ms QT Int : 406 ms P-R-T Axes : 024 -02 078 degrees QTc Int : 450 ms Normal sinus rhythm Inferior infarct , age undetermined Abnormal ECG When compared with ECG of 26-JUN-2023 19:12, Inferior infarct is now Present Confirmed by Christian Garcia ([id number]) on 06/28/2023 5:47:28 AM Referred By: REFERRED SELF Confirmed By:Christian Garcia
[2023-06-28 06:47] LABS: Basophils # (auto) 0.02 K/uL (0.00-0.20); Basophils % (auto) 0.4 %; Eosinophils # (auto) 0.18 K/uL (0.00-0.50); Eosinophils % (auto) 3.2 %; Hematocrit (blood only) 36.4 % (42.0-52.0); Hemoglobin 12.8 g/dl (14.0-18.0); Immature Granulocytes # (auto) 0.03 K/uL (0.01-0.20); Immature Granulocytes % (auto) 0.5 %; Lymphocytes # (auto) 1.06 K/uL (1.20-3.40); Lymphocytes % (auto) 19.1 %; Mean Corpuscular Hemoglobin 32.2 pg (25.0-34.0); Mean Corpuscular Hgb Conc 35.2 g/dL (32.0-36.0); Mean Corpuscular Volume 91.5 fL (80.0-100.0); Mean Platelet Volume 9.2 fL (9.4-12.4); Monocytes # (auto) 0.58 K/uL (0.11-0.59); Monocytes % (auto) 10.5 %; Neutrophils # (auto) 3.68 K/uL (1.40-6.50); Neutrophils % (auto) 66.3 %; Platelet Count 183 K/uL (130-400); RDW Coefficient of Variation 12.9 % (11.5-14.5); RDW Standard Deviation 42.7 fL (36.4-46.3); Red Blood Count 3.98 M/uL (4.70-6.10); White Blood Count 5.55 K/ul (4.8-10.8)
[2023-06-28 07:00] LABS: BUN Creatinine Ratio 18.6 (10-20); Calcium 8.5 mg/dl (8.6-10.3); Creatinine Clr Calc Pharmacy 74.2 ml/min; Est GFR (African American) 98.3 ml/min; Est GFR (Non-African American) 84.8 ml/min; Magnesium 1.9 mg/dl (1.7-2.4); Potassium 4.1 mmol/L (3.5-5.1)
[2023-06-28 07:13] LABS: ANTI-Xa, UFH(UnfractionatedHep 0.31 IU/ml (0.3-0.7)
[2023-06-28] MEDS: lisinopril 2.5 MG TAB PO SCH (07:43)
[2023-06-28] MEDS: MAGNESIUM SULFATE / D5W 1 GM/100 ML BAG IV ONE (09:09)
[2023-06-28 10:41] VITALS: RESP 17
--- NOTE | 2023-06-28 15:01 | Discharge Summary ---
Discharge Summary Date of Service June 28, 2023 Notes For Next Care Provider patient hospitalized after chest pain radiating down his left arm. Troponins elevated and heart cath was done, with no interventional findings, plan for medical optimization. - Cardiology recommended cardiac rehab - patient tolerating increased dose of rosuvastatin to 20 mg, recommendation would be high intensity statin if able to tolerate - Elevated HgbA1c, 8.2. will defer changes to diabetic regimen to primary care provider. was on correctional insulin only here and required insulin about half the time - Patient feels like most of his chest pain is GERD/heartburn in nature, consider outpatient GI follow-up/scope Medication Changes From Visit added lisinopril 2.5 mg daily Added Protonix, in place of his Pepcid Rosuvastatin increased to 20 mg As needed nitroglycerin Admission HPI Per Admitting Provider 77 YOM with medical history of: Nonobstructive CAD (cath 2021), HTN, DM II, Asthma/COPD overlap, SIMI (CPAP 8cmH20), Obesity, chronic bronchitis, COVID 19 06/11, Prostate Cancer( 2017 Adenocarcinoma [place] Grade III)PSA levels no treatment) , chronic back pain L4-L5 radiculopathy. Patient presents to the EMD this morning via EMS for complaints of chest pain that woke him up from sleep this morning. Patient reports that he woke up at 0600 took off his CPAP mask and the pain was located in center of his chest, but then radiated up to his left shoulder and down his arm. He woke his up and she got him baby asa x2 and checked his blood pressure. His blood pressure was 200/100s. He rested for a bit and as the pain did not go away, he got up got dressed and went downstairs and called EMS. The pain did not get better or worse during any of this activity. When EMS showed up, he was given NTG x3 sprays, which patient states made the pain go away almost immediately. He was brought to the EMD where he underwent ECG, Routine labs to include HsCTNI. ECG was negative for STEMI and HsCTNI were not elevated. During this time he reportedly had a syncopal event associated with hypotension in the EMD. His reports that they were sitting with their grand-daughter and the patient reports that he remembers things "getting foggy" and not being able to hear himself speak, his granddaughter went and retrieved the nurse, the also reports that he was pale and diaphoretic at that time. Upon everyone being in the room and some IVF the patient returned to baseline and blood pressure responded without any other interventions. P atient will be admitted to medical telemetry, will obtain ECHO to eval for RWMA as well as continue to trend HsCTNI as next set at 1400 which will be about 8 hours post maximum chest pain. He is currently chest pain free from his symptoms standpoint this morning, however does still have REPRODUCIBLE epigastric pain over xiphoid process. Patient also was recently treated for COVID with Paxlovid that was discontinued after 1 dose secondary to chest pain and hypertension at that time, he was also admitted in May for chest pain. Since he had COVID at that time, HsCTNI and ECGS were stable, Dobutamine stress test was entertained at that time, but not performed secondary to COVID. For the patient's elevated blood pressure, the reports that he is more so than not at or greater than 180mmHG- the patient feels that he gets irritable and has some associated difficulty breathing at those times. He originally thought that this was related to his steroid course following his COVID so he stopped these after 4 doses, not only because of how he felt, but also because his blood sugars were elevated. He reports that his blood sugars have returned to normal range, his cold sweats have disappeared and his mood feels better, but remains with elevated blood pressure readings at home. CODE: FULL Principal Dx & Hospital Course #1 = Principal Diagnosis (1) Chest pain: Patient reports with chest pain with radiation to left shoulder and down left arm that woke him from sleep, associated with elevated blood pressure, and relieved with NTG spray x3 - ECG no acute changes and initiatl HsCTNI negtive- however troponin increasing 7.4 --> 79 --> 427 --> 1121 --> 471 - Echo: EF 60-65%, borderline LVH, grade 1 diastolic dysfunction - Cardiology consulted - Continue ASA and Beta Alondra - Recommend high intensity statin, currently tolerating rosuvastatin 20 mg - Recommend Cardiac cath --> nonobstructive CAD, no significant aortic stenosis, normal left sided filling pressure - Switch to lisinopril 2.5mg daily - Recommend cardiac rehab at discharge - PRN NTG for non-reproducible chest pain Patient also has component of atypical/ MSK chest pain that is reproducible and located at his xyphoid process - This is likely multifactorial at this time, to include chronic cough exacerbated by recent COVID as well as possible GERD component - Protonix rx at discharge, stop pepcid Discharge to home 06/27 (2) Hypertension: Patient has what appears to be symptomatic uncontrolled HTN - Continue Metoprolol Succinate 25mg Daily -Continue lisinopril (3) Syncope: Patient with eppisode of flushing and syncope associated with reported hypotens ion while in the ED. - possible vagal event with coughing and recent NTG administration - Doubt neurological involvement at this time as he is without any nuero deficits or ataxia or speach difficulty, as well as short lived and self resolving No further events while inpatient (4) CAD (coronary artery disease): Continue metoprolol, ASA Statin increased to 20mg daily (5) Dyslipidemia: Rosuvastatin increased to 20mg (6) SIMI (obstructive sleep apnea): Continue with CPAP at bedtime (7) Chronic cough: Acute on Chronic likely with exacerbation of his underlying asthma/copd overlap syndrome stable, continue home inhalers. (8) Diabetes mellitus type 2 in nonobese: HgbA1c: 8.2 - will defer to PCP for adjustments to home regiment continue metformin at discharge metformin held and received sliding scale insulin, received insulin for about 50% of BS checks Plan Dispo: discharge to home updated at beside Discharge Exam General: NAD, VS as above Resp: normal respiratory effort, no wheeze CV: RRR, no murmur, Abd: normal bowel sounds, non tender, no hepatosplenomegaly Extremities: Moves all extremities, no edema Neuro: A&O x3, Updated Medication List Medication Instructions Recorded Confirmed Type loratadine 10 mg tablet 10 mg PO DAILY 04/16/18 06/29/23 History fluticasone propionate 50 2 sprays intranasal DAILY 11/07/18 06/29/23 History mcg/actuation nasal spray,suspension (Allergy Relief (fluticasone)) blood sugar diagnostic (Xtreme Installsuch #50 ea 02/18/21 06/29/23 Rx Verio test strips) lancets 33 gauge ([employer] Delica #100 ea 02/18/21 06/29/23 Rx Lancets) albuterol sulfate 90 mcg/actuation 2 puff inhalation QID PRN 03/11/21 06/29/23 Rx aerosol inhaler Shortness Of Breath Or Wheezing #8.5 grams Portable Oxygen E0431 #1 ea 04/23/21 06/29/23 Rx aspirin 81 mg tablet,delayed 81 mg PO DAILY 06/23/21 06/29/23 History release (Adult Aspirin Regimen) metformin 500 mg tablet 1,000 mg (2 x 500 mg) PO DAILY 08/17/22 06/29/23 Rx #180 tabs metoprolol succinate 25 mg 25 mg PO DAILY #90 tabs 01/25/23 06/29/23 Rx tablet,extended release 24 hr paroxetine HCl 20 mg tablet 20 mg PO QAM #90 tabs 01/28/23 06/29/23 Rx fluticasone fur. 200 mcg-umeclid 1 inh inhalation DAILY #60 ea 04/29/23 06/29/23 Rx 62.5 mcg-vilant 25 mcg inhalat.powder (Trelegy Ellipta) cyanocobalamin (vitamin B-12) 1,000 mcg PO DAILY 06/12/23 06/29/23 History 1,000 mcg tablet (Vitamin B-12) multivitamin 1 tab PO DAILY 06/12/23 06/29/23 History cholecalciferol (vitamin D3) 25 25 mcg PO QAM 30 days #30 caps 06/14/23 06/29/23 Rx mcg (1,000 unit) capsule pantoprazole 40 mg tablet,delayed 40 mg PO DAILY #30 tabs 06/28/23 06/29/23 Rx release (Protonix) olmesartan 5 mg tablet 5 mg PO DAILY #90 tabs 06/29/23 06/29/23 Rx rosuvastatin 40 mg tablet 40 mg PO DAILY #90 tabs 06/29/23 06/29/23 Rx Hospital Stay Data Consultations 06/26/23 11:50 ED Decision to Admit Stat 06/26/23 16:26 Consult Cardiology Routine Procedures Performed Operation Date: 06/27/23 11:00 Actual Procedures p Cineradiography w/Routine Exam - Christian Garcia MD s Cath, Left with Cors and Vent - Christian Garcia MD Diagnostic Imagining Performed Chest X-Ray 06/26/23 09:23 XR chest 1V portable CLINICAL HISTORY: chest pain TECHNIQUE: Single frontal radiograph of the chest was obtained. Comparison: Comparison is made to chest radiograph 06/12/2023 FINDINGS: No lines and tubes are seen. Calcified aortic knob is seen. Emphysema is seen with the lungs are otherwise clear. No evidence of pleural effusion or pneumothorax. IMPRESSION: No acute chest disease. ACT 112: Negative or not required by law. Electronically signed by: Paulo Moffett M.D. 06/26/2023 9:55 AM Chest CTA 06/26/23 09:41 CT angio chest PE protocol CLINICAL HISTORY: PE - hypotensive, recent covid TECHNIQUE: Multidetector row helical CT of the chest was performed with angiographic protocol. Coronal and sagittal reformations were obtained. Coronal and sagittal MIPS were obtained from the axial data set and were submitted for review. Automated dose lowering techniques and/or adjustment according to patient size were utilized for this exam. CT DOSE: 520.16 mGy.cm Comparison: Comparison is made to CTA chest 06/13/2023 FINDINGS: Lungs and pleura: Diffuse centrilobular emphysema is seen most prominent in the upper lobes. Thickening of the bronchi is noted. No airspace opacities. Heart and pericardium: Heart size is normal. No pericardial effusion. Vessels: No evidence of pulmonary embolism. Mediastinum and keenan: Unremarkable. Chest wall and lower neck: Unremarkable. Abdomen: Unremarkable. Bones: Degenerative changes in the thoracic spine. IMPRESSION: 1. No acute abnormality and in particular no evidence of pulmonary embolus. 2. Emphysema and bronchial wall thickening which may represent infectious/inflammatory airways disease. ACT 112: Negative or not required by law. Electronically signed by: Paulo Moffett M.D. 06/26/2023 11:41 AM Pending Results Patient Have Any Pending Studies at Discharge: No Discharge Instructions Given to Patient (Per Discharging Provider) Mr. Aaron, you were hospitalized after having chest pain, with an elevated troponin (heart enzyme). You underwent a heart cath which showed no blockages requiring intervention. At this time the plan will be for medical optimization to prevent further cardiac problems. You will need to follow-up with cardiology next week. We also checked your HgbA1c which was 8.2, indiciating you may need further control than just the Metformin. Will defer that discussion to your PCP. Medications: Your medication list has been reviewed and reconciled upon discharge to ensure accuracy and continuity of care. An updated list of all your medications is included with your hospital discharge paperwork. Please review this list closely, and make note of any changes. We sent a new medication called Lisinopril to your pharmacy. Take once a day. Next dose AM of 06/28. This is an Blood pressure medication to help protect your kidney . We sent a new medication called Nitroglycerin to your pharmacy. Take this as needed for chest pain. If you need more than 3 doses you need to go to the ER. We sent a new medication called protonix to your pharmacy. Take oncea day. Start this AM of 06/28 This is an proton pump inhibitor to help treat heartburn/GERD. You will STOP taking the pepcid since you are startin this . We increased your rosuvastatin to 20mg. This is a cholestrol medication. Take your medications as instructed; do not skip a dose of your medicines. Make sure all of your doctors know every medicine you are taking (including [id number] medicines, vitamins, and supplements). Call your primary care provider before taking any new medicines (including over- the-counter medicines, vitamins, and supplements), because some of these may interact with your current medications, or may make your symptoms worse. Tell your primary care provider if you cannot afford your medications. Activity: You can do normal everyday activities as your body allows. Take rest breaks if you feel tired. Do not overexert. Stop activity if you have pain, shortness of breath or feel dizzy. Follow-up appointments: Make an appointment with your primary care physician within one week of discharge. A copy of this summary will be sent to them. Every time you see your primary care physician, or any other doctor, bring your medication list, and a list of questions. CONTACT YOUR PRIMARY CARE PROVIDER if you experience any of the following: Shortness of breath or difficulty breathing Fevers or chills Feeling tired with normal activity or experiencing dizziness or fainting Difficulty following your treatment plan, or difficulty taking medications CALL 911 OR GO TO THE EMERGENCY DEPARTMENT if you experience any of the following: Severe abdominal pain or nausea/vomiting Severe chest pain, or chest pain that radiates (moves) to your jaw or arm Sudden, severe shortness of breath or difficulty breathing Thank you for allowing us to participate in your care. ACTIVITY RECOMMENDATIONS: Excess manipulation of the wrist should be avoided for the next 24-48 hours. * No lifting over 2 pounds (approximately a 1/2 gallon of milk) with the utilized arm for 24 hours. * No strenuous activity such as bowling or tennis for 3 days. * Keep the site of the procedure covered with a bandage for 24 hours. *You may shower the day after the procedure. Do not take a tub bath or submerge the puncture site in water for the next 3 days. *Do not operate any motorized equipment for 3 days. SPECIAL CARE INSTRUCTIONS: The site may be slightly bruised and sore following your procedure. Should any of the following occur, contact the Dr. who performed your procedure. 1. Redness/inflammation, swelling, chills, or fever, or colored drainage at procedure site within 3-7 days after your procedure. 2. Coldness, discoloration, ongoing numbness, severe pain, or swelling. Expect mild tingling of hand and tenderness at the puncture site for up to three days. If this persists beyond three days, or other symptoms develop, notify the Dr. who performed your procedure. BLEEDING: If the procedure site on your wrist begins to bleed, do not panic 1. Place 1 or 2 fingers firmly just slightly above the insertion site to stop the bleeding. You may be able to feel your pulse as you hold pressure. 2. Lift your finger after 5 minutes to see if the bleeding has stopped. 3. Once the bleeding has stopped, gently wipe the wrist area clean with a bandage. * If the bleeding from your wrist does not stop after 10 minutes, or if there is a large amount of bleeding or spurting, call 911 (do not drive yourself to the hospital). SKIN IRRITATION: * You may experience some redness and/or swelling in the area where radiation was administered. If any skin irritation occurs, please contact your family physician. FOLLOW UP VISIT: 1. Follow up with Awais Chase in the cardiology office in the next week. 2. Keep any scheduled doctor appointments. Total Time Total Time Spent Total Time Spent (In Minutes): Time spend day of discharge 40 minutes including direct patient care, medication reconciliation, documentation, review of labs and images, and coordination of care. Supervising Physician Co-Signing Physician Notes During face to face encounter, I obtained a brief physical examination, discussed hospital stay with patient and discharge instructions with patient. I discussed discharge plan of care with RYAN Rouse. I reviewed above note and agree with it except for the following: Patient admitted with chest pain. Patient had a cardiac cath which did not show obstructive CAD. Coding Level of Care Code 76572 INP/OBS DISCH >30 MIN Diagnoses Chest pain R07.9 Chest pain type: unspecified Hypertension I10 Syncope R55 CAD (coronary artery disease) I25.10 Dyslipidemia E78.5 SIMI (obstructive sleep apnea) G47.33 Chronic cough R05 Diabetes mellitus type 2 in nonobese E11.9
[2023-06-28 15:15] VITALS: TEMP 98.1; O2SAT 94
[2023-06-28 15:55] VITALS: BP 126/75
[2023-06-28 16:08] VITALS: PULSE 61
== END 2023-06-28 17:49 | disposition home or self-care (01) | DRG 287 ==
LOC: ED 09:09 → INTOOBSV 12:51 → 2N 12:51 → SUATTDRO 12:51 → 2N 14:10 → 2E 06-27 16:22